=== PATIENT | male | born 1935 | race Caucasian/White ===

== ENCOUNTER 2017-06-24 09:25 | Day surgery (SDC) | payer MEDICARE, OTHER ==
[2017-06-20 14:40] VITALS: BMI 27.3
[~2017-06-24 09:25] MED LIST: LACTATED RINGERS 1,000 ML IV SCH
[2017-06-24 09:42] VITALS: TEMP 97.9
[2017-06-24] MEDS ORDERED: LIDOCAINE 1% 20 ML VIAL (10MG/ML) FOR IV START INTRADERMA ONE (10:00)
[2017-06-24] MEDS ORDERED: PROPOFOL 10 MG/ML 20 ML VIAL IV ONE (10:41)
--- NOTE | 2017-06-24 11:22 | P.PCN ---
Date of Procedure: 06/24/17 Preoperative Diagnosis: Postoperative Diagnosis: Procedure(s) Performed: Procedure: Colonoscopy through ostomy site with polypectomy. Preoperative diagnosis: History of rectal cancer status post anterior-posterior resection last year. Postoperative diagnosis: 1. Right colon polyp snared with no large polyps or cancer. 2. Diverticulosis with no evidence of acute diverticula source strictures. 3. S/P A/P resection. Preparation: HalfLytely prep. Sedation: Was provided by anesthesia. Brief clinical history: The patient is an 82-year-old male who was diagnosed with rectal cancer last year and underwent chemotherapy, radiation and A-P resection. This would be his first colonoscopy since. Procedure: With the patient in the supine position and after informed consent and adequate sedation, the ostomy site was inspected and it appeared healthy. The Olympus CFQ 160L video colonoscope was then inserted in the ostomy site and advanced without difficulty to the cecum. There were multiple diverticular orifices seen scattered on the right side and in the mid ascending colon there was a small polyp which I snared and retrieved by suction. The mucosa appeared healthy. No large polyps or cancer were seen. The patient tolerated the procedure well. Plan: The patient was reassured. Discussed dietary measures. I anticipate repeating this exam in 1-2 years. He will follow up with you as planned. Implants: Indications for Procedure: Operative Findings: Description of Procedure:
[2017-06-24 11:37] VITALS: BP 1254/65; PULSE 64; RESP 18
== END 2017-06-24 11:56 | disposition home or self-care (01) ==
LOC: ORWHC2ENDO 09:25
DX: D12.2 Benign neoplasm of ascending colon (principal); Z08 Encounter for follow-up examination after completed treatment for malignant neoplasm; K57.30 Diverticulosis of large intestine without perforation or abscess without bleeding; Z85.048 Personal history of other malignant neoplasm of rectum, rectosigmoid junction, and anus; F32.9 Major depressive disorder, single episode, unspecified; J44.9 Chronic obstructive pulmonary disease, unspecified; Z90.49 Acquired absence of other specified parts of digestive tract; Z92.3 Personal history of irradiation; Z92.21 Personal history of antineoplastic chemotherapy; Z86.711 Personal history of pulmonary embolism; Z86.718 Personal history of other venous thrombosis and embolism; Z79.01 Long term (current) use of anticoagulants; Z79.899 Other long term (current) drug therapy
CPT/HCPCS: 88305; 44394; J2704

== ENCOUNTER → 2018-05-25 | Outpatient (CLI) | payer MEDICARE, OTHER ==
--- NOTE | 2018-05-25 10:33 | CT ---
EXAMINATION TYPE: CT ChestAbdPelvis w con DATE OF EXAM: 05/25/2018 COMPARISON: Chest 12/22/2017 and chest abdomen and pelvis 01/02/2016 HISTORY: 83-year-old male Malignant neoplasm of rectum TECHNIQUE: Contiguous axial scanning of the chest, abdomen, and pelvis performed with IV Contrast, pa tient injected with 80 mL of Isovue 300. Delayed images through the kidneys were obtained. Coronal/sa gittal reconstructions performed. CT DLP: 1283.9 mGycm Automated exposure control for dose reduction was used. FINDINGS: Chest: Heart normal size without pericardial effusion. Mild coronary vessel calcifications are present. Aorta normal caliber with conventional arch vessel branching anatomy. Scattered small additional lymph nodes are unchanged. Large caliber to the main right and left pulmonary arteries at 2.9 cm each suggesting underlying pulm onary artery hypertension. 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 Stable focal irregular density peripheral right upper lobe suggest ing some scarring, axial image 15. Some additional patchy subpleural densities right lower lung and l inear densities peripheral left base suggesting additional areas of pleural parenchymal scarring. Pre viously described 2 mm right apical pulmonary nodule is less defined on the current exam. No new susp icious pulmonary nodules or masses. No consolidation or pleural effusion. ABDOMEN: Small hiatal hernia. Stable 2.4 cm cyst left hepatic dome and also probable 1.1 cm cyst central segment 6 right liver lobe , axial image 62. No biliary ductal dilatation. Portal venous system appears patent on the delayed se rachel. Gallbladder, right adrenal gland, spleen, and pancreas show no gross abnormality. A few subcentimeter hypodensities within both kidneys too small for accurate CT characterization and were present on 01/31/2016 suggesting cysts. Nonobstructive 6 mm right renal calculus and 5 mm nonobst ructive left renal calculus. Stable mild diffuse thickening of the left adrenal gland without discrete nodularity. No mesenteric or retroperitoneal lymphadenopathy. No dilated small bowel, free fluid, or free air. Oral contrast has progressed to the splenic flexure. There is normal appendix in mild diverticulosis at the level of the cecum. Left lower quadrant sigmoid colostomy with a small bowel containing parast omal hernia measuring 11.6 cm wide. Multiple small bowel loops are present in the hernia sac. No obst ructive changes. Mild atherosclerotic calcifications within the infrarenal abdominal aorta and iliac arteries without aneurysm. Pelvis: Bladder urine distended. Post surgical changes in the pelvis with distal colon and rectal resection w ith associated soft tissue and presacral thickening. No abnormal fluid collection in the pelvis or pe lvic lymphadenopathy. Partially visualized small to moderate-sized right-sided scrotal hydrocele. Bones: Left hip screw fixation noted. Degenerative changes of both hips and within the lower lumbar spine. N o osseous destructive process. IMPRESSION: 1. DISTAL COLONIC AND RECTAL RESECTION WITH LEFT LOWER QUADRANT SIGMOID COLOSTOMY. 2. PARASTOMAL HERNIA MEASURING 11.6 CM WIDE CONTAINING MULTIPLE SMALL BOWEL LOOPS. NO OBSTRUCTIVE OR INFLAMMATORY CHANGES. 2. PRESACRAL SOFT TISSUE THICKENING LIKELY CHRONIC POSTSURGICAL AND POSTTREATMENT CHANGE. NO EVIDENCE FOR METASTATIC DISEASE. 3. BULLOUS EMPHYSEMA WITH STABLE AREAS OF PLEURAL PARENCHYMAL SCARRING. 4. PULMONARY ARTERIAL HYPERTENSION, SMALL HIATAL HERNIA, NONOBSTRUCTIVE RENAL CALCULUS ON EACH SIDE M EASURING UP TO 6 MM, AND RIGHT-SIDED COLONIC DIVERTICULOSIS.
== END | disposition home or self-care (01) ==
LOC: RADCTMAIN 07:45
PROVIDERS: ATTEND Internal Medicine Hematology & Oncology
DX: C20 Malignant neoplasm of rectum (principal); J30.2 Other seasonal allergic rhinitis; J43.9 Emphysema, unspecified; I27.21 Secondary pulmonary arterial hypertension; N20.0 Calculus of kidney; K44.9 Diaphragmatic hernia without obstruction or gangrene; K57.30 Diverticulosis of large intestine without perforation or abscess without bleeding; Z98.890 Other specified postprocedural states
CPT/HCPCS: 82565; 84520; 71260; 74177; 36415; Q9967

== ENCOUNTER 2018-06-27 14:55 | Emergency (ER) | payer MEDICARE, OTHER ==
[2018-06-27] MEDS ORDERED: SODIUM CHLORIDE 0.9% 1,000 ML IV ONE (15:40)
--- NOTE | 2018-06-27 15:51 | ED ---
Abdominal Pain HPI - General Chief Complaint: Abdominal Pain Stated Complaint: Pain in stoma Time Seen by Provider: 06/27/18 15:22 Source: patient Mode of arrival: ambulatory Limitations: no limitations - History of Present Illness Initial Comments: Patient is an 83-year-old male with a history of colon cancer, status post colon resection and permanent colostomy presents with chief complaint of abdominal pain and left flank pain 10:00 this morning. Patient states that onset of pain was abrupt, it was sharp in nature and much worse earlier today. Patient states she has a history of kidney stones, passing his last one about 12 years ago. Patient also states that he has not had any output from his colostomy over the last few hours, but had diarrhea just prior. patient has a medical history PE, currently on xarelto. - Related Data Home Medications Medication Instructions Recorded Confirmed Citalopram Hydrobromide 20 mg PO QAM 05/23/16 12/22/17 [Citalopram HBr] Acetaminophen [Tylenol 8 Hour] 650 mg PO HS PRN 12/22/17 12/22/17 Montelukast [Singulair] 10 mg PO HS 12/22/17 12/22/17 Umeclidinium Brm/Vilanterol Tr 1 puff INHALATION RT-DAILY 12/22/17 12/22/17 [Anoro Ellipta 62.5-25 Mcg INH] Previous Rx's Medication Instructions Recorded Ipratropium-Albuterol Nebulize 3 ml INHALATION TID #90 ampul.neb 12/25/17 [Duoneb 0.5 mg-3 mg/3 ml Soln] Omeprazole [PriLOSEC] 20 mg PO AC-BRKFST #30 cap 12/25/17 Rivaroxaban [Xarelto] 15 mg PO BID-W/MEALS #42 tab 12/25/17 Acetaminophen [Tylenol Extra 500 mg PO Q8H #20 tablet 06/27/18 Strength] HYDROcodone/APAP 5-325MG [Mulberry 1 tab PO Q6HR PRN 3 Days #12 tab 06/27/18 5-325] Tamsulosin HCl [Flomax] 0.4 mg PO DAILY #2 capsule 06/27/18 Allergies Allergy/AdvReac Type Severity Reaction Status Date / Time No Known Allergies Allergy Verified 06/27/18 15:08 Review of Systems ROS Statement: Those systems with pertinent positive or pertinent negative responses have been documented in the HPI. ROS Other: All systems not noted in ROS Statement are negative. Gastrointestinal: Reports: abdominal pain, diarrhea Musculoskeletal: Reports: back pain Past Medical History Past Medical History: Cancer, COPD, GERD/Reflux, Pneumonia, Pulmonary Embolus ( PE) Additional Past Medical History / Comment(s): IBS, hx kidney stones, hx basal cell skin cancer,rectal cancer Dx January-last chemo/radiation 04-17-16, HAS OSTOMY History of Any Multi-Drug Resistant Organisms: None Reported Past Surgical History: Bowel Resection, Orthopedic Surgery Additional Past Surgical History / Comment(s): fx left tibia/fibula repair with 19 screws and 2 plates, fx lt femur repair with plate and 3 screws, removal of skin cancer, yusuf. cataract surgery. DEV. SEPTUM SX Past Anesthesia/Blood Transfusion Reactions: No Reported Reaction Past Psychological History: Anxiety, Depression Smoking Status: Former smoker Past Alcohol Use History: None Reported Past Drug Use History: None Reported - Past Family History Mother Family Medical History: No Reported History Additional Family Medical History / Comment(s): alcoholism, at age 54 Father History Unknown: Yes Brother(s) Additional Family Medical History / Comment(s): heart problems-5 stents General Exam Limitations: no limitations General appearance: alert, in no apparent distress Head exam: Present: atraumatic, normocephalic Eye exam: Present: normal appearance, PERRL ENT exam: Present: normal exam Neck exam: Present: normal inspection Respiratory exam: Present: normal lung sounds bilaterally. Absent: respiratory distress, wheezes Cardiovascular Exam: Present: regular rate, normal rhythm GI/Abdominal exam: Present: soft, tenderness (LLQ ). Absent: distended Rectal exam: Present: deferred Extremities exam: Present: normal inspection Back exam: Present: normal inspection. Absent: CVA tenderness (R), CVA tenderness (L) Neurological exam: Present: alert, oriented X3 Psychiatric exam: Present: normal affect, normal mood Skin exam: Present: warm, dry, intact Course Vital Signs 06/27/18 15:06 Temperature 97.8 F Pulse Rate 103 H Respiratory 18 Rate Blood Pressure 123/77 O2 Sat by Pulse 94 L Oximetry Medical Decision Making - Medical Decision Making Patient presents with a chief complaint of abdominal pain and flank pain, onset at 10 AM. On initial evaluation, vital signs are stable, patient is in no acute distress. Patient offered pain medications but declining at this time. Review of patient's recent imaging shows a computed tomography scan of the chest abdomen pelvis showed chronic thickening his sacrum, the hernia surrounding the colostomy, and a 6 mm and 5 mm nonobstructing renal stone in the right and left kidneys respectively. At this time considered etiologies such as kidney stone versus bowel obstruction. Patient will require repeat CT imaging of the abdomen and pelvis today however we'll wait for urinalysis to direct contrast versus noncontrast study. 6:14 PM Computed tomography scan of the abdomen and pelvis without contrast shows a 4 mm ureteral stone at the UVJ causing mild hydronephrosis and hydroureter. On reevaluation, patient states his pain is much improved. Currently pending urinalysis. Laboratory evaluation is unremarkable though there is a slight bump in patient's renal function. I discussed these findings with the patient. Pending urinalysis, patient will be discharged home with prescriptions for Mulberry, Tylenol, and Flomax. Patient will be given urology follow-up and instructed to follow up with primary care in 1-2 days, return to the emergency department if symptoms worsen or change. 7:20 PM Urinalysis does not show evidence of infection. At this time, patient stable for discharge. He was prescribed should drink Tylenol, Mulberry, and Flomax. Patient instructed not to take extra Tylenol if he is going to take the Mulberry. Patient instructed to throw Mulberry out if no pain in 3 days. I discussed the addictive nature of Mulberry with the patient, opiate start talking form discussed. Patient to follow up with primary care 1-2 days, return to the emergency department if symptoms worsen or change. Patient given follow-up for urology. - Lab Data Result diagrams: 06/27/18 15:58 06/27/18 15:58 Lab Results 06/27/18 06/27/18 06/27/18 Range/Units 15:58 15:58 15:58 WBC 10.3 (3.8-10.6) k/uL RBC 4.78 (4.30-5.90) m/uL Hgb 15.2 (13.0-17.5) gm/dL Hct 44.8 (39.0-53.0) % MCV 93.6 (80.0-100.0) fL MCH 31.8 (25.0-35.0) pg MCHC 34.0 (31.0-37.0) g/dL RDW 12.5 (11.5-15.5) % Plt Count 207 (150-450) k/uL Neutrophils % 86 % Lymphocytes % 5 % Monocytes % 6 % Eosinophils % 2 % Basophils % 1 % Neutrophils # 8.9 H (1.3-7.7) k/uL Lymphocytes # 0.5 L (1.0-4.8) k/uL Monocytes # 0.6 (0-1.0) k/uL Eosinophils # 0.2 (0-0.7) k/uL Basophils # 0.1 (0-0.2) k/uL Sodium 135 L (137-145) mmol/L Potassium 4.2 (3.5-5.1) mmol/L Chloride 105 (98-107) mmol/L Carbon Dioxide 20 L (22-30) mmol/L Anion Gap 10 mmol/L BUN 16 (9-20) mg/dL Creatinine 1.58 H (0.66-1.25) mg/dL Est GFR (CKD-EPI)AfAm 46 (>60 ml/min/1.73 sqM) Est GFR (CKD-EPI)NonAf 40 (>60 ml/min/1.73 sqM) Glucose 127 H (74-99) mg/dL Plasma Lactic Acid Adrian 1.5 (0.7-2.0) mmol/L Calcium 9.1 (8.4-10.2) mg/dL Total Bilirubin 0.6 (0.2-1.3) mg/dL AST 16 L (17-59) U/L ALT 24 (21-72) U/L Alkaline Phosphatase 53 (38-126) U/L Total Protein 5.7 L (6.3-8.2) g/dL Albumin 3.5 (3.5-5.0) g/dL Lipase 119 (23-300) U/L Urine Color Urine Appearance (Clear) Urine pH (5.0-8.0) Ur Specific [place] (1.001-1.035) Urine Protein (Negative) Urine Glucose (UA) (Negative) Urine Ketones (Negative) Urine Blood (Negative) Urine Nitrite (Negative) Urine Bilirubin (Negative) Urine Urobilinogen (<2.0) mg/dL Ur Leukocyte Esterase (Negative) Urine RBC (0-5) /hpf Urine WBC (0-5) /hpf Urine Mucus (None) /hpf 06/27/18 Range/Units 18:35 WBC (3.8-10.6) k/uL RBC (4.30-5.90) m/uL Hgb (13.0-17.5) gm/dL Hct (39.0-53.0) % MCV (80.0-100.0) fL MCH (25.0-35.0) pg MCHC (31.0-37.0) g/dL RDW (11.5-15.5) % Plt Count (150-450) k/uL Neutrophils % % Lymphocytes % % Monocytes % % Eosinophils % % Basophils % % Neutrophils # (1.3-7.7) k/uL Lymphocytes # (1.0-4.8) k/uL Monocytes # (0-1.0) k/uL Eosinophils # (0-0.7) k/uL Basophils # (0-0.2) k/uL Sodium (137-145) mmol/L Potassium (3.5-5.1) mmol/L Chloride (98-107) mmol/L Carbon Dioxide (22-30) mmol/L Anion Gap mmol/L BUN (9-20) mg/dL Creatinine (0.66-1.25) mg/dL Est GFR (CKD-EPI)AfAm (>60 ml/min/1.73 sqM) Est GFR (CKD-EPI)NonAf (>60 ml/min/1.73 sqM) Glucose (74-99) mg/dL Plasma Lactic Acid Adrian (0.7-2.0) mmol/L Calcium (8.4-10.2) mg/dL Total Bilirubin (0.2-1.3) mg/dL AST (17-59) U/L ALT (21-72) U/L Alkaline Phosphatase (38-126) U/L Total Protein (6.3-8.2) g/dL Albumin (3.5-5.0) g/dL Lipase (23-300) U/L Urine Color Yellow Urine Appearance Clear (Clear) Urine pH 6.0 (5.0-8.0) Ur Specific [place] 1.010 (1.001-1.035) Urine Protein Trace H (Negative) Urine Glucose (UA) Negative (Negative) Urine Ketones Negative (Negative) Urine Blood Large H (Negative) Urine Nitrite Negative (Negative) Urine Bilirubin Negative (Negative) Urine Urobilinogen <2.0 (<2.0) mg/dL Ur Leukocyte Esterase Small H (Negative) Urine RBC >182 H (0-5) /hpf Urine WBC 7 H (0-5) /hpf Urine Mucus Rare H (None) /hpf Disposition Clinical Impression: Ureterolithiasis Disposition: HOME SELF-CARE Condition: Good Instructions: Kidney Stones (ED) Prescriptions: Acetaminophen [Tylenol Extra Strength] 500 mg PO Q8H #20 tablet HYDROcodone/APAP 5-325MG [Mulberry 5-325] 1 tab PO Q6HR PRN 3 Days #12 tab PRN Reason: Pain Tamsulosin HCl [Flomax] 0.4 mg PO DAILY #2 capsule Is patient prescribed a controlled substance at d/c from ED?: Yes If prescribed controlled substance>3 days was MAPS reviewed?: Prescribed <3 Days Referrals: Solomon Schmid DO [Primary Care Provider] - 1-2 days Nima Mckeon MD [STAFF PHYSICIAN] - 1-2 days
[2018-06-27 16:15] LABS: Basophils # (A) 0.1 k/uL (0-0.2); Basophils % (A) 1 %; Eosinophils # (A) 0.2 k/uL (0-0.7); Eosinophils % (A) 2 %; HCT 44.8 % (39.0-53.0); HGB 15.2 gm/dL (13.0-17.5); Lymphocytes # (A) 0.5 k/uL (1.0-4.8); Lymphocytes % (A) 5 %; MCH 31.8 pg (25.0-35.0); MCV 93.6 fL (80.0-100.0); Mean Platelet Volume 8.1; Monocytes # (A) 0.6 k/uL (0-1.0); Monocytes % (A) 6 %; Neutrophils # (A) 8.9 k/uL (1.3-7.7); Neutrophils % (A) 86 %; Platelet Count 207 k/uL (150-450); RBC 4.78 m/uL (4.30-5.90); RDW 12.5 % (11.5-15.5); WBC 10.3 k/uL (3.8-10.6)
[2018-06-27 16:26] LABS: Albumin 3.5 g/dL (3.5-5.0); Calcium 9.1 mg/dL (8.4-10.2); Potassium 4.2 mmol/L (3.5-5.1); Total Bilirubin 0.6 mg/dL (0.2-1.3); Total Protein 5.7 g/dL (6.3-8.2)
--- NOTE | 2018-06-27 17:55 | CT ---
EXAMINATION TYPE: CT renal stones wo con DATE OF EXAM: 06/27/2018 COMPARISON: INDICATION: left sided abdominal pain DLP: 634.7 mGycm, Automated exposure control for dose reduction was used. CONTRAST: 0 mL of Isovue 300. Study performed without Oral Contrast TECHNIQUE: Axial images were obtained from above the diaphragm to the pubic rami in the axial plane a t 5 mm thick sections. Reconstructed images are reviewed on the computer in the coronal plane. FINDINGS: Limited CT sections are obtained the lung bases. Compressive atelectasis at the dependent portions o f the lung bases and the periphery of the right lung. Some streak atelectasis may be at the right thony g base.. CT ABDOMEN: Liver: There is a 2.7 cm cyst at the superior right lobe liver measuring 0 Hounsfield units compatibl e wrist. Small hypodensity may be in the medial right lobe liver measuring 1.4 cm. Series 3 image 34. Spleen: Normal Pancreas: Normal Adrenal glands: The adrenal glands are normal. Gallbladder: Normal Kidneys: No masses are evident. No cysts are present. There is a 0.4 cm calcification on the posteri or mid right kidney without evidence of obstruction. There is a 0.4 cm calcification on the posterior lateral left kidney without evidence of obstruction. Minimal left hydronephrosis may be present. The re is some mild left hydroureter. Perinephric stranding some periureteral stranding is present on the left. Hydroureter becomes more prominent within the pelvis. At the left ureterovesical junction ther e is an obstructing calcification measuring 0.4 cm. Aorta: Vascular calcification is within the aorta. Inferior vena cava: Normal. CT PELVIS: There is an anterior lateral left pelvic hernia containing multiple loops of bowel. No obs truction is evident. Skin is out of the [id number]. An ostomy at this site cannot be excluded. Dis luther colon appears to be surgically absent suggesting this is the ostomy site. The opening is 3.7 cm. Appendix: Normal as visualized. Urinary bladder: Normal. Genitourinary structures: Prostate appears unremarkable. Osseous structures: No suspicious lytic or sclerotic lesions. Left hip repair with a pain screw is pr esent. There are degenerative disc changes within the lower lumbar spine. IMPRESSIONS: 1. 0.4 cm obstructing distal left ureteral stone with mild left hydroureter and minimal left hydrone phrosis. 2. Bilateral nonobstructing renal stones. 3. Left anterior abdominal wall hernia containing nonobstructed loops of bowel. This is an ostomy sit e. Distal colon is not identified.
[2018-06-27 18:59] LABS: Appearance,Urine Clear (Clear); Bilirubin,Urine Negative (Negative); Blood,Urine Large (Negative); Color,Urine Yellow; Glucose,Urine (UA) Negative (Negative); Ketones,Urine Negative (Negative); Leukocyte Esterase,Urine Small (Negative); Mucus,Urine Rare /hpf; Nitrite,Urine Negative (Negative); Protein,Urine Trace (Negative); RBC,Urine >182 /hpf (0-5); Urobilinogen,Urine <2.0 mg/dL (<2.0); WBC,Urine 7 /hpf (0-5)
[2018-06-27 19:27] VITALS: BP 116/80; PULSE 55; RESP 17; TEMP 98.2
== END 2018-06-27 19:50 | disposition home or self-care (01) ==
LOC: EC 14:55
DX: N13.2 Hydronephrosis with renal and ureteral calculous obstruction (principal); R19.7 Diarrhea, unspecified; J44.9 Chronic obstructive pulmonary disease, unspecified; F32.9 Major depressive disorder, single episode, unspecified; F41.9 Anxiety disorder, unspecified; Z87.442 Personal history of urinary calculi; Z86.711 Personal history of pulmonary embolism; Z85.828 Personal history of other malignant neoplasm of skin; Z85.048 Personal history of other malignant neoplasm of rectum, rectosigmoid junction, and anus; Z85.038 Personal history of other malignant neoplasm of large intestine; Z87.891 Personal history of nicotine dependence; Z79.899 Other long term (current) drug therapy; Z90.49 Acquired absence of other specified parts of digestive tract
CPT/HCPCS: 36415; 74150; 80053; 81001; 83605; 83690; 85025; 96360; 99284

== ENCOUNTER 2019-04-15 08:31 | Inpatient (IN) | payer MEDICARE, OTHER ==
[2019-04-15] MEDS ORDERED: MORPHINE SULFATE 4 MG/ML SYRINGE IV STA (09:37)
[2019-04-15] MEDS ORDERED: KETOROLAC 30 MG/ML 1 ML VIAL IVP STA (09:37)
[2019-04-15] MEDS ORDERED: SODIUM CHLORIDE 0.9% 1,000 ML IV STA ×2 (09:37)
[2019-04-15 10:11] LABS: Basophils # (A) 0.1 k/uL (0-0.2); Basophils % (A) 1 %; Eosinophils # (A) 0.2 k/uL (0-0.7); Eosinophils % (A) 3 %; HCT 46.8 % (39.0-53.0); HGB 15.3 gm/dL (13.0-17.5); Lymphocytes # (A) 0.6 k/uL (1.0-4.8); Lymphocytes % (A) 7 %; MCH 30.7 pg (25.0-35.0); MCHC 32.7 g/dL (31.0-37.0); MCV 94.1 fL (80.0-100.0); Mean Platelet Volume 7.9; Monocytes # (A) 0.5 k/uL (0-1.0); Monocytes % (A) 5 %; Neutrophils # (A) 7.3 k/uL (1.3-7.7); Neutrophils % (A) 84 %; Platelet Count 268 k/uL (150-450); RBC 4.98 m/uL (4.30-5.90); RDW 13.1 % (11.5-15.5); WBC 8.7 k/uL (3.8-10.6)
[2019-04-15 10:21] LABS: Albumin 4.1 g/dL (3.5-5.0); Calcium 9.6 mg/dL (8.4-10.2); Potassium 4.4 mmol/L (3.5-5.1); Total Protein 6.4 g/dL (6.3-8.2)
--- NOTE | 2019-04-15 10:21 | ED ---
Lower Extremity Injury HPI - General Source: patient, RN notes reviewed, old records reviewed Mode of arrival: wheelchair Limitations: no limitations <Juanita Garcia - Last Filed: 04/15/19 12:26> <Virgilio Sweeney - Last Filed: 04/15/19 12:42> - General Chief Complaint: Extremity Injury, Lower Stated Complaint: Hip Pain Time Seen by Provider: 04/15/19 09:00 - History of Present Illness Initial Comments: Patient is a pleasant 83-year-old male presents emergency department today for evaluation with complaints of right hip pain. Patient reports he's been having worsening chronic right hip pain for the past few weeks. Unable to bear weight. Patient denies any recent fall or trauma. Does have history of colon cancer. He states he followed up outpatient only and had outpatient x-ray. There was a evidence of a lesion over the hip. He scheduled to have an outpatient CT completed. Patient states that his pain was getting more severe so he felt that he needed to come in for this acute right hip pain. 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 He does have a colostomy. Patient states he is on several toe for history of PE use. He denies any current PE, chest pain or shortness of breath. (Juanita Garcia) - Related Data Home Medications Medication Instructions Recorded Confirmed Citalopram Hydrobromide 20 mg PO QAM 05/23/16 04/15/19 [Citalopram HBr] Acetaminophen [Tylenol 8 Hour] 1,300 mg PO Q8H PRN 12/22/17 04/15/19 Montelukast [Singulair] 10 mg PO HS 12/22/17 04/15/19 Umeclidinium Brm/Vilanterol Tr 1 puff INHALATION RT-DAILY 12/22/17 04/15/19 [Anoro Ellipta 62.5-25 Mcg INH] Albuterol Inhaler [Ventolin Hfa 1 - 2 puff INHALATION RT-Q6H PRN 04/15/19 04/15/19 Inhaler] Levocetirizine Dihydrochloride 5 mg PO DAILY 04/15/19 04/15/19 [Xyzal] Rivaroxaban [Xarelto] 20 mg PO DAILY 04/15/19 04/15/19 Allergies Allergy/AdvReac Type Severity Reaction Status Date / Time No Known Allergies Allergy Verified 04/15/19 08:43 Review of Systems ROS Other: All systems not noted in ROS Statement are negative. <Juanita Garcia - Last Filed: 04/15/19 12:26> ROS Other: All systems not noted in ROS Statement are negative. <Virgilio Sweeney - Last Filed: 04/15/19 12:42> ROS Statement: Those systems with pertinent positive or pertinent negative responses have been documented in the HPI. Past Medical History Past Medical History: Cancer, COPD, GERD/Reflux, Pneumonia, Pulmonary Embolus (PE) Additional Past Medical History / Comment(s): IBS, hx kidney stones, hx basal cell skin cancer,rectal cancer Dx January-last chemo/radiation 04-17-16, HAS OSTOMY History of Any Multi-Drug Resistant Organisms: None Reported Past Surgical History: Bowel Resection, Orthopedic Surgery Additional Past Surgical History / Comment(s): fx left tibia/fibula repair with 19 screws and 2 plates, fx lt femur repair with plate and 3 screws, removal of skin cancer, yusuf. cataract surgery. DEV. SEPTUM SX Past Anesthesia/Blood Transfusion Reactions: No Reported Reaction Past Psychological History: Anxiety, Depression Smoking Status: Former smoker Past Alcohol Use History: None Reported Past Drug Use History: None Reported - Past Family History Mother Family Medical History: No Reported History Additional Family Medical History / Comment(s): alcoholism, at age 54 Father History Unknown: Yes Brother(s) Additional Family Medical History / Comment(s): heart problems-5 stents <Juanita Garcia - Last Filed: 04/15/19 12:26> General Exam Limitations: no limitations General appearance: alert, in no apparent distress Head exam: Present: atraumatic, normocephalic, normal inspection Eye exam: Present: normal appearance, PERRL, EOMI. Absent: scleral icterus, conjunctival injection, periorbital swelling ENT exam: Present: normal exam, mucous membranes moist Neck exam: Present: normal inspection. Absent: tenderness, meningismus, lymphadenopathy Respiratory exam: Present: normal lung sounds bilaterally. Absent: respiratory distress, wheezes, rales, rhonchi, stridor Cardiovascular Exam: Present: regular rate, normal rhythm, normal heart sounds. Absent: systolic murmur, diastolic murmur, rubs, gallop, clicks GI/Abdominal exam: Present: soft, normal bowel sounds. Absent: distended, tenderness, guarding, rebound, rigid Extremities exam: Present: normal inspection, full ROM, normal capillary refill, other (Patient is sinus outpatient over the right hip. Full range of motion was completed Patient and pain with external and internal rotation. Herself pedis pulses palpable 2+. No lower extremity edema.). Absent: tenderness, pedal edema, joint swelling, calf tenderness Back exam: Present: normal inspection Neurological exam: Present: alert, oriented X3, CN II-XII intact Psychiatric exam: Present: normal affect, normal mood <Juanita Garcia - Last Filed: 04/15/19 12:26> - General Exam Comments Initial Comments: Is an 83-year-old male presents emergency department. Patient appears in no significant distress. He reports his daughter. (Juanita Garcia) Course Vital Signs 04/15/19 04/15/19 08:32 10:14 Temperature 97 F L Pulse Rate 80 67 Respiratory 18 18 Rate Blood Pressure 127/96 141/82 O2 Sat by Pulse 97 93 L Oximetry Medical Decision Making - Lab Data Result diagrams: 04/15/19 10:00 04/15/19 10:00 - Radiology Data Radiology results: report reviewed <Juanita Garcia - Last Filed: 04/15/19 12:26> - Lab Data Result diagrams: 04/15/19 10:00 04/15/19 10:00 <Virgilio Sweeney - Last Filed: 04/15/19 12:42> - Medical Decision Making Patient is an 83-year-old male presents emergency Department today with complaints of right hip pain. Worse over the past 24-48 hours. He denies any falls or trauma. Patient reports a history of sclerotic lesion that was noted. Slow given outpatient CT. He states the pain was more severe and unable to ambulate so came in for evaluation. Scheduled to have an outpatient CT of his abdomen and pelvis for follow-up for his cancer. He states is currently in remission. Patient does have an acute right femoral neck fracture. He denies any fall or trauma related to this. Discussed could be related to pathologic fracture. Patient was given morphine. Patient's labwork was reviewed. He does have some evidence of white blood cells and blood in his urine. We will culture this. He denies any complaining of dysuria. Patient case discussed with Dr. Sweeney whom discussed case with Dr. Lima. He is previously seen Dr. Duvall for his lip left hip fracture. Patient will be admitted at this time, to medical doctor with consult to orthosis as a nontraumatic hip fracture. He is on Xarelto, will we will holds her also for this time. (Juanita Garcia) Patient reexamined and reevaluated by myself, Dr. Sweeney. Patient is resting comfortably in bed. I do agree with PA findings. This includes diagnostic interpretation and plan. Patient does have discomfort with active range of mo tion. Limited discomfort with passive range of motion. Patient states no specific trauma. Onset of symptoms was close to one month ago. Patient did have previous x-rays with questionable sclerotic area. Computed tomography scan report shows femoral neck fracture. Case was discussed in detail with Dr. Nguyen. Dr. Sullivan has low suspicion for metastatic disease off of patient's previous diagnosis. He states he does not feel he needs to be consulted until orthopedics see his patient. He states if they do have strong suspicion they can consult him if needed. Case was also discussed with Dr. gupta, who will consult covering for Dr. Schmid. (Virgilio Sweeney) - Lab Data Lab Results 04/15/19 04/15/19 04/15/19 Range/Units 10:00 10:00 10:00 WBC 8.7 (3.8-10.6) k/uL RBC 4.98 (4.30-5.90) m/uL Hgb 15.3 (13.0-17.5) gm/dL Hct 46.8 (39.0-53.0) % MCV 94.1 (80.0-100.0) fL MCH 30.7 (25.0-35.0) pg MCHC 32.7 (31.0-37.0) g/dL RDW 13.1 (11.5-15.5) % Plt Count 268 (150-450) k/uL Neutrophils % 84 % Lymphocytes % 7 % Monocytes % 5 % Eosinophils % 3 % Basophils % 1 % Neutrophils # 7.3 (1.3-7.7) k/uL Lymphocytes # 0.6 L (1.0-4.8) k/uL Monocytes # 0.5 (0-1.0) k/uL Eosinophils # 0.2 (0-0.7) k/uL Basophils # 0.1 (0-0.2) k/uL PT 13.4 H (9.0-12.0) sec INR 1.3 H (<1.2) APTT 34.4 H (22.0-30.0) sec Sodium 139 (137-145) mmol/L Potassium 4.4 (3.5-5.1) mmol/L Chloride 107 (98-107) mmol/L Carbon Dioxide 26 (22-30) mmol/L Anion Gap 6 mmol/L BUN 19 (9-20) mg/dL Creatinine 1.21 (0.66-1.25) mg/dL Est GFR (CKD-EPI)AfAm 64 (>60 ml/min/1.73 sqM) Est GFR (CKD-EPI)NonAf 55 (>60 ml/min/1.73 sqM) Glucose 88 (74-99) mg/dL Calcium 9.6 (8.4-10.2) mg/dL Total Bilirubin 1.0 (0.2-1.3) mg/dL AST 15 L (17-59) U/L ALT 31 (21-72) U/L Alkaline Phosphatase 58 (38-126) U/L Total Protein 6.4 (6.3-8.2) g/dL Albumin 4.1 (3.5-5.0) g/dL Amylase 83 (30-110) U/L Lipase 139 (23-300) U/L Urine Color Urine Appearance (Clear) Urine pH (5.0-8.0) Ur Specific [place] (1.001-1.035) Urine Protein (Negative) Urine Glucose (UA) (Negative) Urine Ketones (Negative) Urine Blood (Negative) Urine Nitrite (Negative) Urine Bilirubin (Negative) Urine Urobilinogen (<2.0) mg/dL Ur Leukocyte Esterase (Negative) Urine RBC (0-5) /hpf Urine WBC (0-5) /hpf Urine Mucus (None) /hpf 04/15/19 Range/Units 10:05 WBC (3.8-10.6) k/uL RBC (4.30-5.90) m/uL Hgb (13.0-17.5) gm/dL Hct (39.0-53.0) % MCV (80.0-100.0) fL MCH (25.0-35.0) pg MCHC (31.0-37.0) g/dL RDW (11.5-15.5) % Plt Count (150-450) k/uL Neutrophils % % Lymphocytes % % Monocytes % % Eosinophils % % Basophils % % Neutrophils # (1.3-7.7) k/uL Lymphocytes # (1.0-4.8) k/uL Monocytes # (0-1.0) k/uL Eosinophils # (0-0.7) k/uL Basophils # (0-0.2) k/uL PT (9.0-12.0) sec INR (<1.2) APTT (22.0-30.0) sec Sodium (137-145) mmol/L Potassium (3.5-5.1) mmol/L Chloride (98-107) mmol/L Carbon Dioxide (22-30) mmol/L Anion Gap mmol/L BUN (9-20) mg/dL Creatinine (0.66-1.25) mg/dL Est GFR (CKD-EPI)AfAm (>60 ml/min/1.73 sqM) Est GFR (CKD-EPI)NonAf (>60 ml/min/1.73 sqM) Glucose (74-99) mg/dL Calcium (8.4-10.2) mg/dL Total Bilirubin (0.2-1.3) mg/dL AST (17-59) U/L ALT (21-72) U/L Alkaline Phosphatase (38-126) U/L Total Protein (6.3-8.2) g/dL Albumin (3.5-5.0) g/dL Amylase (30-110) U/L Lipase (23-300) U/L Urine Color Yellow Urine Appearance Clear (Clear) Urine pH 5.5 (5.0-8.0) Ur Specific [place] 1.025 (1.001-1.035) Urine Protein Trace H (Negative) Urine Glucose (UA) Negative (Negative) Urine Ketones 1+ H (Negative) Urine Blood Moderate H (Negative) Urine Nitrite Negative (Negative) Urine Bilirubin Negative (Negative) Urine Urobilinogen <2.0 (<2.0) mg/dL Ur Leukocyte Esterase Trace H (Negative) Urine RBC 180 H (0-5) /hpf Urine WBC 6 H (0-5) /hpf Urine Mucus Rare H (None) /hpf 04/15/19 10:45 EKG performed at 1011 shows sinus bradycardia, right bundle branch block noted. Ventricular rate of 59 bpm period. Was 178 ms. Chest ration 132 ms. QT QTC 01/19/1984/479 ms. (Juanita Garcia) - Radiology Data CT abdomen and pelvis with contrast shows acute transcervical right femoral neck impaction fracture without comminution. Minimal for shattering impaction of the medial formal neck and 1 minute. Diastases of the lateral femoral neck. Urinary bladder wall thickening could be acute or chronic was no inflammatory change seen. Correlate with urinalysis. Is a large mobile containing left mid abdomen. Stomal hernia. Hepatic cysts, and mild hepatic steatosis. (Juanita Garcia) Disposition Is patient prescribed a controlled substance at d/c from ED?: No Time of Disposition: 12:32 <Juanita Garcia - Last Filed: 04/15/19 12:26> <Virgilio Sweeney - Last Filed: 04/15/19 12:42> Clinical Impression: Hip fracture, History of rectal cancer, Hematuria Disposition: ADMITTED IP TO THIS HOSP Condition: Stable Referrals: Solomon Schmid DO [Primary Care Provider] - 1-2 days
[2019-04-15 10:24] LABS: INR 1.3 (<1.2); Partial Thromboplastin Time 34.4 sec (22.0-30.0); Prothrombin Time 13.4 sec (9.0-12.0)
[2019-04-15 10:29] LABS: Appearance,Urine Clear (Clear); Bilirubin,Urine Negative (Negative); Blood,Urine Moderate (Negative); Color,Urine Yellow; Glucose,Urine (UA) Negative (Negative); Ketones,Urine 1+ (Negative); Leukocyte Esterase,Urine Trace (Negative); Mucus,Urine Rare /hpf; Nitrite,Urine Negative (Negative); PH, Urine 5.5 (5.0-8.0); Protein,Urine Trace (Negative); RBC,Urine 180 /hpf (0-5); Specific Gravity,Urine 1.025 (1.001-1.035); Urobilinogen,Urine <2.0 mg/dL (<2.0); WBC,Urine 6 /hpf (0-5)
--- NOTE | 2019-04-15 11:37 | CT ---
EXAMINATION TYPE: CT abdomen pelvis w con, CT hip RT w con DATE OF EXAM: 04/15/2019 COMPARISON: 06/27/2018 CT HISTORY: Hip pain (accession [id number]), Abdominal pain and hip pain (accession [id number]) CT DLP: 1342 mGycm Automated exposure control for dose reduction was used. TECHNIQUE: Helical acquisition of images was performed from the lung bases through the pelvis. Randy guous axial CT slices were also obtained of the right hip. CONTRAST: Performed without Oral Contrast and with IV Contrast, patient injected with 80 ml (accession [id number] ), 100 ml (accession [id number]) mL of Isovue 300. FINDINGS: LUNG BASES: Peripheral reticular predominant opacities favor mild fibrosis with bandlike pleural pare nchymal scarring at the left lung base and multifocal subsegmental atelectasis. LIVER/GB: There is a cyst within the hepatic dome measuring 2.7 cm. There is additional cyst medially within the right hepatic lobe on image 24 measuring 1 cm. There is diffuse hypoattenuation of the he patic parenchyma compatible with hepatic steatosis. There is slight atrophy of the left hepatic lobe. No radiopaque calculi are seen within the gallbladder. PANCREAS: Slight pancreatic ductal prominence without dilatation is seen. Pancreatic parenchyma enhan devante homogeneously. SPLEEN: No significant abnormality is seen. ADRENALS: No significant abnormality is seen. KIDNEYS: There are bilateral nonobstructing renal calculi measuring 5 mm in the left mid pole and 4 m m in the right upper pole. There are 2 small to accurately characterize bilateral renal lesions. No h ydronephrosis. FREE AIR: No free air is visualized. ADENOPATHY: No greater than 1 cm short axis lymph node is seen in the abdomen or pelvis. REPRODUCTIVE ORGANS: No significant abnormality is seen URINARY BLADDER: Elongated with slight anterior urinary bladder wall thickening and urachal remnant noted. OSSEOUS STRUCTURES: There is a right femoral neck fracture that is an impacted fracture that appears transcervical within fraction approximately 7 mm medially and 1 mm diastases laterally. This is not comminuted. The acetabulum displays multiple osteophytes and well-corticated adjacent fragments altho ugh no acute fracture of the acetabulum is seen. Pelvis appears intact and no sacroiliac joint space widening is seen. There is generalized osseous demineralization and slight heterogeneity of the bone marrow diffusely. Left femoral arthroplasty is noted. Moderate degenerative changes of the lumbosacra l spine are seen. BOWEL: Small hiatal hernia is present. Left parastomal hernia is seen within neck measuring 3 cm. Th e hernia sac measures up to 1.4 cm and stoma is present. Distal rectosigmoid colon resection is prese nt. IMPRESSION: 1. Acute transcervical right femoral neck impaction fracture without comminution. Minimal foreshorten ing/impaction of the medial femoral neck and 1 mm diastases of the lateral femoral neck. 2. Urinary bladder wall thickening could be acute or chronic with no inflammatory change seen. Correl ate with urinalysis. 3. Large small bowel containing left mid abdomen parastomal hernia. 4. Hepatic cysts and mild hepatic steatosis.
[2019-04-15] MEDS ORDERED: HYDROmorphone 0.5 MG/0.5 ML SYRINGE IVP PRN (12:36)
[2019-04-15] MEDS ORDERED: NALOXONE 0.4 MG/ML 1 ML VIAL IV PRN (12:36)
[2019-04-15] MEDS ORDERED: MORPHINE SULFATE 4 MG/ML SYRINGE IV PRN (12:36)
[2019-04-15] MEDS ORDERED: ACETAMINOPHEN TAB 500 MG TAB PO PRN (12:39)
--- NOTE | 2019-04-15 13:28 | XR ---
Right femur, right hip, AP pelvis HISTORY: Pain 2 views of the right hip, 2 views of the right femur on 4 images, frontal view of the pelvis. Bone mineralization is reduced. There is a subcapital fracture with impaction of the proximal right f emur. No dislocation. Contrast material present within the bladder. Degenerative disc changes visuali zed spine. The left lower quadrant. Postop changes are noted. IMPRESSION: Proximal right femoral fracture.
--- NOTE | 2019-04-15 13:31 | XR ---
EXAMINATION TYPE: XR chest 1V DATE OF EXAM: 04/15/2019 COMPARISON: Prior chest x-ray 05/28/2016 HISTORY: Right hip pain, colon cancer TECHNIQUE: Single frontal view of the chest is obtained. FINDINGS: Patient is rotated There is no focal air space opacity, pleural effusion, or pneumothorax s een. The cardiac silhouette size is stable. The osseous structures are intact. Pneumoperitoneum se en on prior chest x-ray has resolved. IMPRESSION: No acute process.
[2019-04-15] MEDS: IPRATROPIUM 0.5 MG/2.5 ML NEBU INHALATION SCH ×2 (16:05→20:33)
[2019-04-15] MEDS: SODIUM CHLORIDE 0.9% 1,000 ML IV SCH (17:27)
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
[2019-04-15] MEDS: ONDANSETRON 4 MG/2 ML VIAL IVP PRN (20:09)
[2019-04-15] MEDS: MONTELUKAST 10 MG TAB PO SCH (20:09)
[2019-04-15] MEDS: FORMOTEROL FUMARATE 20 MCG/2 ML NEBU INHALATION SCH (20:33)
[2019-04-16 02:19] VITALS: BMI 29.7
[2019-04-16] MEDS: SODIUM CHLORIDE 0.9% 1,000 ML IV SCH (02:54)
--- NOTE | 2019-04-16 07:10 | P.CNOR ---
History of Present Illness - [facility] Consult date: 04/15/19 Consult reason: other (right femoral neck fracture) History of present illness: Mr. Blanchard is a pleasant, 83-year-old gentleman who presents with a one-month history of increasing right hip pain. He first noticed the symptoms on 03/18/2019 when stretching to get into a vehicle with a high seat. The sharp pain resolved quickly and he was able to resume normal activity. He noticed increasing difficulty with ambulation. This became substantially more painful a few days ago. Past medical history is significant for colon/rectal cancer (stage 2 at time of diagnosis) treated with surgical resection in 2016 followed by chemo and radiation. He has a permanent colostomy. Prior to admission, he went for an abdominal CT performed for normal follow-up for his cancer and a femoral neck fracture was identified and he was sent to the emergency department. He denies any fall or recent trauma. He normally ambulates without the use of any assist devices. The last several days, he's been able to get around (with difficulty) by using 2 canes. He did have to PE's near the end of his chemo treatment and has been on Xarelto ever since. His last dose was this morning (04/15). He lives alone and is independent with all activities of daily living. Past Medical History Past Medical History: Cancer, COPD, GERD/Reflux, Pneumonia, Pulmonary Embolus (PE) Additional Past Medical History / Comment(s): IBS, hx kidney stones, hx basal cell skin cancer,rectal cancer Dx January-last chemo/radiation 04-17-16, HAS OSTOMY History of Any Multi-Drug Resistant Organisms: None Reported Past Surgical History: Bowel Resection, Orthopedic Surgery Additional Past Surgical History / Comment(s): fx left tibia/fibula repair with 19 screws and 2 plates, fx lt femur repair with plate and 3 screws, removal of skin cancer, yusuf. cataract surgery. DEV. SEPTUM SX Past Anesthesia/Blood Transfusion Reactions: No Reported Reaction Past Psychological History: Anxiety, Depression Smoking Status: Former smoker Past Alcohol Use History: None Reported Additional Past Alcohol Use History / Comment(s): quit 1984 Past Drug Use History: None Reported - Past Family History Mother Family Medical History: No Reported History Additional Family Medical History / Comment(s): alcoholism, at age 54 Father History Unknown: Yes Brother(s) Additional Family Medical History / Comment(s): heart problems-5 stents Medications and Allergies Home Medications Medication Instructions Recorded Confirmed Type Citalopram Hydrobromide 20 mg PO QAM 05/23/16 04/15/19 History [Citalopram HBr] Acetaminophen [Tylenol 8 Hour] 1,300 mg PO Q8H PRN 12/22/17 04/15/19 History Montelukast [Singulair] 10 mg PO HS 12/22/17 04/15/19 History Umeclidinium Brm/Vilanterol Tr 1 puff INHALATION RT-DAILY 12/22/17 04/15/19 History [Anoro Ellipta 62.5-25 Mcg INH] Albuterol Inhaler [Ventolin Hfa 1 - 2 puff INHALATION RT-Q6H PRN 04/15/19 04/15/19 History Inhaler] Levocetirizine Dihydrochloride 5 mg PO DAILY 04/15/19 04/15/19 History [Xyzal] Rivaroxaban [Xarelto] 20 mg PO DAILY 04/15/19 04/15/19 History Allergies Allergy/AdvReac Type Severity Reaction Status Date / Time No Known Allergies Allergy Verified 04/15/19 08:43 Physical Examination Musculoskeletal: Mild tenderness to palpation on the lateral aspect of the right hip over the greater trochanter. There is no erythema, ecchymosis or abrasions. There is no gross shortening or malrotation. He demonstrates mild pain with logroll but more discomfort with internal rotation. He can actively flex the hip beyond 60 with minimal discomfort. Gentle passive range of motion and circumduction in the midrange reveals a smooth articulation. He is able to transiently straight leg raise but is unable to hold this against resistance due to pain. Light touch sensation is subjectively intact throughout the right leg. Intact gross motor function to the tibialis anterior, EHL and gastroc- soleus complex. Palpable dorsalis pedis and tibialis posterior pulses. The foot is warm, dry and well perfused. Results X-rays of the pelvis and right hip were reviewed and interpreted from an or thopedic standpoint. These demonstrates an impacted subcapital femoral neck fracture with displacement between the medial head-neck junction. There is a large, lytic-appearing lucency in the superolateral aspect of the head. CT reveals an incomplete, impacted femoral neck fracture. Note is made of mixed lytic and sclerotic lesions within the weightbearing portion of the acetabular dome. - Labs Labs: Abnormal Lab Results - Last 24 Hours (Table) 04/15/19 04/15/19 04/15/19 Range/Units 10:00 10:00 10:00 Lymphocytes # 0.6 L (1.0-4.8) k/uL PT 13.4 H (9.0-12.0) sec INR 1.3 H (<1.2) APTT 34.4 H (22.0-30.0) sec AST 15 L (17-59) U/L Urine Protein (Negative) Urine Ketones (Negative) Urine Blood (Negative) Ur Leukocyte Esterase (Negative) Urine RBC (0-5) /hpf Urine WBC (0-5) /hpf Urine Mucus (None) /hpf 04/15/19 Range/Units 10:05 Lymphocytes # (1.0-4.8) k/uL PT (9.0-12.0) sec INR (<1.2) APTT (22.0-30.0) sec AST (17-59) U/L Urine Protein Trace H (Negative) Urine Ketones 1+ H (Negative) Urine Blood Moderate H (Negative) Ur Leukocyte Esterase Trace H (Negative) Urine RBC 180 H (0-5) /hpf Urine WBC 6 H (0-5) /hpf Urine Mucus Rare H (None) /hpf Microbiology - Last 24 Hours (Table) 04/15/19 10:05 Urine Culture - Preliminary Urine,Voided H & H 04/15/19 Range/Units 10:00 Hgb 15.3 (13.0-17.5) gm/dL Hct 46.8 (39.0-53.0) % Coagulation 04/15/19 Range/Units 10:00 INR 1.3 H (<1.2) Result Diagrams: 04/15/19 10:00 04/15/19 10:00 Assessment and Plan Assessment: 1. Pathologic right femoral neck fracture 2. History of colon cancer and PE Plan: With the subacute presentation of this fracture and it's radiographic appearance, this is suspicious for a pathologic fracture, especially with no reported history of fall or traumatic event. Recommend further evaluation by heme/onc. Discussed treatment options with the patient, including nonoperative treatment with protected mobilization versus surgery (in the form of a cemented hemiarthroplasty). Since he has been able to ambulate, I recommended starting by mobilizing the patient with PT. Since he had his last dose of Xarelto this morning, we would likely wait 36-48 hours before considering surgery anyway. He was in agreement. He may WBAT with a walker (with assist only). Fall precautions. SCDs for interim DVT prophylaxis. We will reevaluate tomorrow and determine whether to proceed with surgical intervention.
[2019-04-16] MEDS: FORMOTEROL FUMARATE 20 MCG/2 ML NEBU INHALATION SCH ×2 (08:04→19:47)
[2019-04-16] MEDS: IPRATROPIUM 0.5 MG/2.5 ML NEBU INHALATION SCH ×4 (08:04→19:47)
[2019-04-16] MEDS: LORATADINE 10 MG TAB PO SCH (08:20)
[2019-04-16] MEDS: CITALOPRAM HYDROBROMIDE 20 MG TAB PO SCH (08:20)
[2019-04-16] MEDS: ENOXAPARIN 80 MG/0.8 ML SYRINGE SQ SCH ×2 (08:21→23:19)
[2019-04-16] MEDS ORDERED: PANTOPRAZOLE 40 MG/10 ML VIAL IV SCH (09:00)
--- NOTE | 2019-04-16 19:52 | P.PN ---
Subjective Progress Note Date: 04/16/19 The patient was seen and examined at the bedside. He states that he was able to ambulate fairly well with therapy but experienced occasional sharp pains in certain positions. The pain is well controlled at rest but the hip will hurt suddenly if he moves the wrong way. Objective - Vital Signs Vital signs: Vital Signs Temp 98.9 F 04/16/19 14:07 Pulse 69 04/16/19 16:26 Resp 16 04/16/19 14:07 BP 112/68 04/16/19 14:07 Pulse Ox 90 L 04/16/19 14:07 Intake & Output 04/16/19 04/16/19 04/17/19 06:59 18:59 06:59 Intake Total 1200 Output Total 300 Balance -300 1200 Intake: Oral 1200 Output: Urine 300 Other: Voiding Method Urinal Urinal # Voids 2 - Exam Sitting reclined in bed with legs crossed at the ankles. Pain at the extremes of logroll. Positive Stinchfield. - Labs CBC & Chem 7: 04/15/19 10:00 04/15/19 10:00 Labs: Microbiology - Last 24 Hours (Table) 04/15/19 10:05 Urine Culture - Final Urine,Voided Assessment and Plan Assessment: 1. Pathologic right femoral neck fracture 2. History of colon cancer and PE Plan: We again reviewed the pros and cons of nonoperative versus surgical treatment. He has struggled with pain in the hip for a month and it has recently worsened. He would like to go forward with surgery. We discussed the surgical plan and expected postoperative course. Risks and benefits were reviewed in detail. We will plan for cemented hemiarthroplasty in the morning with Dr. Walsh. Specimens from surgery will be sent for pathology. Hold anticoagulants. NPO after midnight.
[2019-04-16] MEDS: MONTELUKAST 10 MG TAB PO SCH (21:01)
--- NOTE | 2019-04-16 22:45 | PN ---
PROGRESS NOTE DATE OF SERVICE: 04/16/2019 PRESENTING COMPLAINT: Right hip fracture. INTERVAL HISTORY: This patient presented with right hip fracture. Pain is controlled. Staying in bed. Started on Lovenox this morning. Xarelto has been held. Awaiting input from Oncology. There was no obvious evidence of pathological fracture except for circumstantial suspicion. REVIEW OF SYSTEMS: Done for constitutional, cardiovascular, GI, pulmonary; relevant findings as above. CURRENT MEDICATIONS: Reviewed. They include Lovenox. PHYSICAL EXAMINATION: Temperature 98.9, pulse 69, respiration 16, blood pressure 112/68, pulse ox 90%. GENERAL APPEARANCE: Sitting up, awake. EYES: Pupils equal. Conjunctivae normal. NECK: JVD not raised. Mass not palpable. RESPIRATORY: Effort normal. LUNGS: Decreased breath sounds. CARDIOVASCULAR: First and second sounds normal. No edema. ABDOMEN: Soft, non-tender. Liver and spleen not palpable. Colostomy bag in place with a parastomal hernia. PSYCHIATRY: Alert and oriented x3. Mood and affect normal. INVESTIGATIONS: No blood work from today. ASSESSMENT: 1. Spontaneous right femur fracture, likely from underlying osteopenia. Pathological fracture needs to be ruled out. 2. Chronic obstructive pulmonary disease in an ex-smoker. 3. Gastroesophageal reflux disease. 4. Irritable bowel syndrome. 5. Chronic parastomal hernia, stable. 6. History of rectal cancer treated with AP resection and chemo and radiation in 2016; currently no obvious evidence of any recurrence. 7. Anxiety, depression not otherwise specified. 8. 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 PLAN: Spoke to the patient. Spoke to COY Galo from Oncology. They will evaluate the patient, and once okay with them, surgery can be proceeded with. Also spoke to the patient and his daughter Allison. In the meantime, continue with Lovenox. MMODL / IJN: [id number] /
[2019-04-17] MEDS ORDERED: ceFAZolin IN SWFI 2 GM/20 ML SYRINGE IVP ONE (07:00)
[2019-04-17] MEDS ORDERED: HYDROmorphone (PF) 1 MG/ML ONE (08:13)
[2019-04-17] MEDS ORDERED: PROPOFOL 10 MG/ML 20 ML VIAL IV ONE (08:13)
[2019-04-17] MEDS ORDERED: fentaNYL (PF) 50 MCG/ML 2 ML AMP ONE (08:13)
[2019-04-17] MEDS ORDERED: PHENYLEPHRINE-0.9% NACL SYG 1 MG/10 ML SYRINGE ONE (08:13)
[2019-04-17] MEDS ORDERED: LIDOCAINE 1% INJ 10MG/ML (20 ML MDV) ONE (08:13)
[2019-04-17] MEDS ORDERED: MIDAZOLAM 2 MG/2 ML VIAL ONE (08:13)
[2019-04-17] MEDS ORDERED: LACTATED RINGERS 1,000 ML IV ONE ×4 (08:13→10:46)
[2019-04-17] MEDS ORDERED: MAGNESIUM SULFATE 4 MEQ/ML 10ML VIAL ONE (08:13)
[2019-04-17] MEDS ORDERED: SUCCINYLCHOLINE CHLORIDE 100 MG/5 ML SYR IV ONE (08:13)
[2019-04-17] MEDS ORDERED: ROCURONIUM BROMIDE 10 MG/ML 10 ML VIAL IV ONE (08:13)
[2019-04-17] MEDS ORDERED: SODIUM CHLORIDE 0.9% 50 ML with ceFAZolin 2,000 MG IV ONE ×2 (08:40)
[2019-04-17] MEDS ORDERED: ceFAZolin 3,000 MG in SODIUM CHLORIDE 0.9% IRRIGATIO 3,000 ML IRRIGATION ONE (08:56)
[2019-04-17] MEDS: IPRATROPIUM 0.5 MG/2.5 ML NEBU INHALATION SCH ×4 (09:16→20:10)
[2019-04-17] MEDS: FORMOTEROL FUMARATE 20 MCG/2 ML NEBU INHALATION SCH ×2 (09:16→20:07)
[2019-04-17] MEDS: ENOXAPARIN 80 MG/0.8 ML SYRINGE SQ SCH ×2 (10:05→20:36)
[2019-04-17] MEDS: LORATADINE 10 MG TAB PO SCH (10:05)
[2019-04-17] MEDS: CITALOPRAM HYDROBROMIDE 20 MG TAB PO SCH (10:05)
[2019-04-17] MEDS ORDERED: HYDROcodone/APAP 5-325MG 1 EACH TAB PO PRN (10:45)
--- NOTE | 2019-04-17 11:03 | P.OP ---
Date of Procedure: 04/17/19 Preoperative Diagnosis: 1. Subacute, displaced right subcapital femoral neck fracture 2. History of rectal cancer with colostomy 3. 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 Over the last several days he has had an increase in his hip pain to the point it was difficult to walk. He was brought to our ER where x-rays and a computed tomography scan showed a slightly displaced subcapital femoral neck fracture. The patient was initially admitted to my partner Dr. Lima. He was seen by internal medicine and cleared for surgery. Both Dr. Lima and myself met with the family in both agreed that operative stabilization with a cemented hemiarthroplasty would be in his best interest given his history of rectal cancer and possibility of pathologic fracture. We had a lengthy discussion with the family on the potential risks and complications of surgery including but not limited to risk of anesthesia, superficial infection, deep infection, delayed wound healing, damage to local blood vessels or nerves, intraoperative fracture, postoperative fracture, postoperative hip dislocation, difficulty ambulating, need for assistive device to ambulate, and inability to regain preinjury level of function, need for furt her surgery, DVT, PE, acute coronary event, stroke, pressure ulcer, pneumonia, and possibly loss of life. We also discussed the possibility of metastatic cancer and the fracture may be pathologic. The patient and his family understand all of these risks and also acknowledge that other less common complications are possible. They provided their verbal and written consent to go forward with surgery. Operative Findings: There was an obvious subcapital femoral neck fracture. The bone was friable and appeared suspicious for a pathologic fracture. The fracture appeared subacute as there was a serous, blood-tinged effusion within the hip capsule. Description of Procedure: The patient was identified in preoperative holding and the correct right hip was marked with my initials. I reviewed the consent form with the patient and his family. All their questions were answered. The patient was then brought back to the operating room by anesthesia. He was positioned on his gurney and a general anesthetic and preoperative antibiotics were administered. The patient was then carefully transferred onto the OR table. He was placed into the lateral decubitus position with the left side down and the affected right hip up. All bony prominences were well-padded. An axillary roll was placed. The patient was secured to the OR table with a Montral frame. The patient's right leg was then prepped and draped in the standard sterile fashion. Prior to starting surgery timeout was performed identifying the correct patient, operative extremity, and procedure. I began by outlining a standard incision for a posterior lateral approach to the hip. Skin incision was made with a 10 blade scalpel. Dissection was carried down through the subcutaneous tissue and fat with electrocautery to the level of the IT band. The IT band was incised longitudinally in line with the posterior border of the femur distally and proximally the fascia and gluteus aubrey were split posteriorly at the tip of the greater trochanter. A Charnley retractor was placed deep. Remnants of the trochanteric bursa were elevated off the posterior femur. The superior edge of the piriformis tendon was identified and a medium Wong elevator was used to develop the interval between the external rotators and posterior hip capsule. The piriformis and external rotators were then released off the posterior border of the femur using electrocautery. Retractors were placed in a posterior capsulotomy was performed with electrocautery. Immediately upon entering the hip joint there was a grey of blood-tinged serous fluid. There was a displaced fracture in the subcapital region of the femoral neck. Gregory retractors were placed and a neck cut was made 1 thumb breadth above the lesser trochanter. A bone hook was used to retract the femur and the femoral head was removed, passed off to the back table, sized and sent to pathology. On inspection of the bone it had friable appearance concerning for metastatic lesion. A box osteotome was then used to gain entrance to the proximal canal followed by a canal finder. A lateralized reamer was then used. I reamed in 1 mm increments until a 14 mm reamer generated chatter distally. I sequentially broached in 1 mm increments taking care to match the patient's [place] version up to a size 14 mm broach which felt stable. A calcar planar was used to bring the cut surface the femoral neck down to the level of the broach. A standard offset 48 mm head trial was placed and the hip was reduced with some difficulty. After the hip was reduced and felt stable in all planes of motion. The hip was gently dislocated with a shoulder hook. Trial implants and the broach were removed. A moistened Ray-Jeremy sponge w as placed in the acetabulum. The proximal femur was prepared for cementing with thorough irrigation. A cement restrictor was placed distally. Anesthesia was notified that we were cementing. A size 14 mm stem was then gently tapped into place taking care to match the patient's [place] version. All excess cement was removed and the stem was held in place as the cement set. Once the cement was c ompletely hardened I again trialed with a 48 mm head which felt stable. The hip was once again carefully dislocated. The trunnion of the stem was cleaned, a 48 mm final head was dispensed, gently tapped into place to engage the Gonzalez taper and the hip was carefully reduced. I once again brought the hip through range of motion and it felt stable in all planes. The hip joint was then thoroughly irrigated with pulsatile lavage. A meticulous posterior capsular repair was performed with 0 Vicryl interrupted stitches. The piriformis tendon was reapproximated the posterior aspect of the greater trochanter using 2-0 Ethibond in a modified Mitesh-Jonathon stitch. The IT band was closed with a running Quill stitch. The deep layer fat was closed with interrupted 0 Vicryl. The superficial subcutaneous tissue was reapproximated using 2-0 Vicryl. The skin was closed with a running subcuticular Quill stitch. A sterile dressing was applied. I verified that all instrument, sponge, and sharp counts were correct. On inspection's the leg lengths felt symmetric. An abduction pillow was applied after the drapes were taken down. The patient was carefully transferred from the OR table onto a gurney and brought to PACU having ptotic procedure well. Leigh Lo PAC was required as a skilled delinquent tax collector assistant for patient positioning, retraction, placement of implants, closure and application of dressing due to the complexity of the case. Plan: Pending postoperative x-rays in the recovery room the patient can weight- bear as tolerated on the right leg. He is to follow posterior hip precautions with either an abduction pillow or knee immobilizer. He will receive 2 doses of postoperative antibiotics. Consulted for assistance with perioperative medical management. Discharge planning is pending.
[2019-04-17] MEDS ORDERED: HYDROmorphone 0.5 MG/0.5 ML SYRINGE IVP ONE (11:19)
[2019-04-17] MEDS: LACTATED RINGERS 1,000 ML IV SCH ×2 (11:35→22:40)
[2019-04-17] MEDS: ONDANSETRON 4 MG/2 ML VIAL IVP PRN (11:35)
--- NOTE | 2019-04-17 11:45 | XR ---
EXAMINATION TYPE: XR Hip Complete RT , ONE VIEW DATE OF EXAM ORDERED: 04/17/2019 HISTORY: Post op. COMPARISON: Previous study dated 04/15/2019. FINDINGS: A right hip hemiarthroplasty has been placed. Prosthetic elements appear in good position in this single frontal projection. IMPRESSION: STATUS POST RIGHT HIP HEMIARTHROPLASTY.
[2019-04-17 12:14] LABS: Basophils # (A) 0.1 k/uL (0-0.2); Basophils % (A) 0 %; Eosinophils # (A) 0.2 k/uL (0-0.7); Eosinophils % (A) 2 %; HCT 44.5 % (39.0-53.0); HGB 14.6 gm/dL (13.0-17.5); Lymphocytes # (A) 1.2 k/uL (1.0-4.8); Lymphocytes % (A) 8 %; MCH 31.6 pg (25.0-35.0); MCHC 32.7 g/dL (31.0-37.0); MCV 96.5 fL (80.0-100.0); Mean Platelet Volume 8.1; Monocytes # (A) 0.6 k/uL (0-1.0); Monocytes % (A) 4 %; Neutrophils # (A) 12.3 k/uL (1.3-7.7); Neutrophils % (A) 85 %; Platelet Count 225 k/uL (150-450); RBC 4.61 m/uL (4.30-5.90); RDW 14.2 % (11.5-15.5); WBC 14.6 k/uL (3.8-10.6)
[2019-04-17] MEDS: ceFAZolin IN SWFI 2 GM/20 ML SYRINGE IVP SCH ×2 (16:00→23:02)
[2019-04-17] MEDS: HYDROcodone/APAP 5-325MG 1 EACH TAB PO PRN ×2 (16:35→22:37)
[2019-04-17] MEDS: SENNOSIDES-DOCUSATE SODIUM 1 EACH TAB PO SCH (20:36)
[2019-04-17] MEDS: MONTELUKAST 10 MG TAB PO SCH (20:36)
--- NOTE | 2019-04-17 23:22 | PN ---
PROGRESS NOTE DATE OF SERVICE: 04/17/2019. PRESENTING COMPLAINT: Right hip fracture. INTERVAL HISTORY: This patient presented with right hip fracture. There is question about underlying pathological fracture. The patient is taken to the OR today a had a right hip hemiarthroplasty. The patient is comfortable. Daughter at the bedside. Pain is controlled. No new issues. REVIEW OF SYSTEMS: Done for constitutional, cardiovascular, GI, pulmonary; relevant findings as above. CURRENT MEDICATIONS: Reviewed. PHYSICAL EXAMINATION: VITAL SIGNS: Temperature 98.3, pulse 76, respirations 12, blood pressure 112/75, pulse ox 96% on 2 L. GENERAL APPEARANCE: Lying in bed comfortable. EYES: Pupils equal. Conjunctivae normal. NECK: JVD not raised. Mass not palpable. Respiratory effort normal. LUNGS: Decreased breath sounds. CARDIOVASCULAR: 1st and 2nd sounds. No edema. ABDOMEN: Soft, nontender. Liver and spleen not palpable. Colostomy bag in place with a parastomal hernia. Right hip hematoma. PSYCHIATRY: Alert and oriented x3. Mood and affect normal. INVESTIGATIONS: White count 14.6, hemoglobin 14.6. ASSESSMENT: 1. Spontaneous right femur fracture followed by right hip hemiarthroplasty. 2. Suspicion for pathological fracture. 3. Chronic obstructive pulmonary disease in an ex-smoker. 4. Gastroesophageal reflux disease. 5. Irritable bowel syndrome. 6. Chronic parastomal hernia. 7. History of rectal cancer followed by chemoradiation and resultant colostomy. 8. Chronic bilateral embolism chronically on Xarelto. PLAN: Care was discussed with the patient and daughter at the bedside. Anticoagulation to be resumed when okay with Orthopedics. MMODL / IJN: [id number] /
--- NOTE | 2019-04-18 02:09 | P.CONS ---
History of Present Illness - Reason for Consult Consult date: 04/16/19 right femur fracture. history - rectal cancer - History of Present Illness The patient is an 83-year-old white male, well known to our service. He is followed by Dr. Pleitez in the outpatient setting. The patient was diagnosed with T3 N0 M0 rectal cancer in 2016 (stage II) with no other risk features. He was treated with concurrent chemoradiation with oral Xeloda, and subsequently underwent surgery. He was then placed on observation and was last seen in the office with physical exam, CT scans and labs showing no evidence of recurrence . The patient had been having some pain in the right hip, starting about 4-5 weeks ago. He states that initially this was intermittent , but over the past 2 weeks or so has become persistent, and more severe. He had outpatient imaging that revealed evidence of fracture the right femur. He was therefore sent in to the hospital and admitted for further management. Review of his films by orthopedic surgery indicated possible malignant involvement. [facility] and recommendations The patient has done well since his surgery for rectal cancer, with no evidence of recurrence so far. Review of Systems Constitutional: Reports fatigue, Denies chills, Denies fever Eyes: denies blurred vision, denies pain Ears: deny: decreased hearing, ear discharge, earache, tinnitus Ears, nose, mouth and throat: Denies headache, Denies sore throat Cardiovascular: Reports as per HPI Respiratory: Denies cough Gastrointestinal: Reports as per HPI Genitourinary: Reports urinary frequency, Reports urinary hesitancy Musculoskeletal: Reports fractures, Reports muscle weakness Musculoskeletal: right: hip pain, hip stiffness Integumentary: Denies pruritus, Denies rash Neurological: Denies numbness, Denies weakness Psychiatric: Denies anxiety, Denies depression Endocrine: Denies fatigue, Denies weight change Past Medical History Past Medical History: Cancer, COPD, GERD/Reflux, Pneumonia, Pulmonary Embolus (PE) Additional Past Medical History / Comment(s): IBS, hx kidney stones, hx basal cell skin cancer,rectal cancer Dx January-last chemo/radiation 04-17-16, HAS OSTOMY History of Any Multi-Drug Resistant Organisms: None Reported Past Surgical History: Bowel Resection, Orthopedic Surgery Additional Past Surgical History / Comment(s): fx left tibia/fibula repair with 19 screws and 2 plates, fx lt femur repair with plate and 3 screws, removal of skin cancer, yusuf. cataract surgery. DEV. SEPTUM SX Past Anesthesia/Blood Transfusion Reactions: No Reported Reaction Past Psychological History: Anxiety, Depression Smoking Status: Former smoker Past Alcohol Use History: None Reported Additional Past Alcohol Use History / Comment(s): quit 1984 Past Drug Use History: None Reported - Past Family History Mother Family Medical History: No Reported History Additional Family Medical History / Comment(s): alcoholism, at age 54 Father History Unknown: Yes Brother(s) Additional Family Medical History / Comment(s): heart problems-5 stents Medications and Allergies Home Medications Medication Instructions Recorded Confirmed Type Citalopram Hydrobromide 20 mg PO QAM 05/23/16 04/15/19 History [Citalopram HBr] Acetaminophen [Tylenol 8 Hour] 1,300 mg PO Q8H PRN 12/22/17 04/15/19 History Montelukast [Singulair] 10 mg PO HS 12/22/17 04/15/19 History Umeclidinium Brm/Vilanterol Tr 1 puff INHALATION RT-DAILY 12/22/17 04/15/19 History [Anoro Ellipta 62.5-25 Mcg INH] Albuterol Inhaler [Ventolin Hfa 1 - 2 puff INHALATION RT-Q6H PRN 04/15/19 04/15/19 History Inhaler] Levocetirizine Dihydrochloride 5 mg PO DAILY 04/15/19 04/15/19 History [Xyzal] Rivaroxaban [Xarelto] 20 mg PO DAILY 04/15/19 04/15/19 History Allergies Allergy/AdvReac Type Severity Reaction Status Date / Time No Known Allergies Allergy Verified 04/15/19 08:43 Physical Exam Vitals: Vital Signs Temp Pulse Pulse Pulse Resp BP Pulse Ox 04/18/19 00:44 98.2 F 82 15 115/73 97 04/17/19 20:19 91 04/17/19 20:05 96 04/17/19 19:23 97.4 F L 84 14 102/66 93 L 04/17/19 16:45 95 04/17/19 16:38 96 04/17/19 16:00 12 04/17/19 15:17 98.3 F 76 12 114/75 96 04/17/19 13:32 76 114/75 04/17/19 13:15 76 113/71 04/17/19 13:00 76 111/75 04/17/19 12:45 73 115/75 04/17/19 12:30 72 117/75 04/17/19 12:15 73 112/71 04/17/19 12:00 67 114/74 04/17/19 11:45 68 126/77 04/17/19 11:30 97.6 F 66 12 155/76 91 L 04/17/19 11:15 62 16 137/68 96 04/17/19 11:00 58 L 16 130/63 97 04/17/19 10:46 98.4 F 56 L 16 113/56 96 04/17/19 07:00 98.4 F 90 12 110/72 91 L Intake and Output 04/17/19 04/17/19 04/18/19 14:59 22:59 06:59 Intake Total 2351 350 Output Total 400 Balance 2351 350 -400 Intake: IV 2051 Intake, IV Titration 300 350 Amount Lactated Ringers 1,000 ml 300 350 @ 100 mls/hr IV .Q10H MARIXA Rx#:[id number] Output: Urine 400 Results CBC & Chem 7: 04/17/19 11:36 04/15/19 10:00 Labs: Abnormal Lab Results - Last 24 Hours (Table) 04/17/19 Range/Units 11:36 WBC 14.6 H (3.8-10.6) k/uL Neutrophils # 12.3 H (1.3-7.7) k/uL Chest x-ray: report reviewed CT scan - abdomen: report reviewed CT scan - pelvis: report reviewed Assessment and Plan (1) Hip fracture Narrative/Plan: The patient is presenting with symptoms over the past several weeks with worsening, with imaging revealing right hip fracture. He denies any direct trauma though we cannot rule out some twisting with day-to-day activities The official radiology report of his CAT scan, as well as hip x-ray notes definite evidence of fracture in the right femoral neck. However those reports do not mention any specific changes that are more suggestive of malignancy. However features noted on orthopedic surgeon's own evaluation of of the films, are more suspicious for malignancy. However these are not definitive, and could potentially be due to osteoporosis, and changes due to acute fracture. In addition, metastatic recurrence with limited bone lesion, from a stage II rectal cancer, appropriately treated, after more than 2 years, would be a rare clinical presentation Even if this lesion is malignant, imaging so far shows no other burden of disease. The patient's performance status is otherwise reasonable. Therefore from the oncology standpoint, it is quite reasonable for the patient to proceed with surgery for the femoral lesion. That would have the lower advantage of managing his symptoms, as well as obtaining biopsies for definitive diagnosis. The above rationale was discussed in detail with the patient and his family. They expressed understanding of the same. Therefore the recommendation from oncology would be to proceed with surgical intervention which is felt to be required according to orthopedic evaluation Current Visit: Yes Status: Acute Code(s): S72.009A - FRACTURE OF UNSP PART OF NECK OF UNSP FEMUR, INIT SNOMED Code(s): 501968745 (2) History of rectal cancer Narrative/Plan: diagnostic and therapeutic Circumstances as noted above. Imaging as well as labs in 11/03 had shown no recurrence. Current imaging also shows no suspicious lesions, other than the right hip area. As noted above this clinical presentation as metastatic recurrence would be quite rare for his comparatively early stage rectal cancer. - Check CEA - Await pathology reports from the hip surgery. Current Visit: Yes Status: Acute Code(s): Z85.048 - PRSNL HX OF MALIG NEOPLM OF RECTUM, RECTOSIG JUNCT, AND ANUS SNOMED Code(s): 387391683 Plan: if the right femur lesion is indeed malignant, this could also be due to a totally new/separate primary. Await biopsy reports in this regard. refer to the admitting, Service, and orthopedic surgery for continued management
[2019-04-18] MEDS: HYDROcodone/APAP 5-325MG 1 EACH TAB PO PRN ×3 (04:48→16:09)
[2019-04-18] MEDS: LACTATED RINGERS 1,000 ML IV SCH ×2 (07:15→07:16)
[2019-04-18] MEDS: IPRATROPIUM 0.5 MG/2.5 ML NEBU INHALATION SCH ×4 (08:53→20:54)
[2019-04-18] MEDS: FORMOTEROL FUMARATE 20 MCG/2 ML NEBU INHALATION SCH ×2 (08:53→20:54)
[2019-04-18] MEDS: LORATADINE 10 MG TAB PO SCH (10:07)
[2019-04-18] MEDS: CITALOPRAM HYDROBROMIDE 20 MG TAB PO SCH (10:07)
[2019-04-18] MEDS: ENOXAPARIN 80 MG/0.8 ML SYRINGE SQ SCH ×2 (10:07→20:12)
--- NOTE | 2019-04-18 14:29 | P.PN ---
Subjective Progress Note Date: 04/18/19 Patient is doing well today and only has mild discomfort in his right hip. Objective - Vital Signs Vital signs: Vital Signs Temp 98 F 04/18/19 08:21 Pulse 92 04/18/19 13:05 Resp 12 04/18/19 08:21 BP 123/70 04/18/19 08:21 Pulse Ox 97 04/18/19 08:21 Intake & Output 04/17/19 04/18/19 04/18/19 18:59 06:59 18:59 Intake Total 2351 350 Output Total 400 Balance 2351 -50 Intake: IV 2050 Intake, IV Titration 300 350 Amount Lactated Ringers 1,000 ml 300 350 @ 100 mls/hr IV .Q10H MARIXA Rx#:[id number] Output: Urine 400 Other: Voiding Method Urinal # Voids 1 - Exam On exam the patient is sitting comfortably in a chair next to the bed. He is alert and able to answer questions. His dressing appears clean. His thigh is minimally tender. Motor and sensory function are intact in the right foot. - Labs CBC & Chem 7: 04/17/19 11:36 04/15/19 10:00 Assessment and Plan (1) Hip fracture Current Visit: Yes Status: Acute Code(s): S72.009A - FRACTURE OF UNSP PART OF NECK OF UNSP FEMUR, INIT SNOMED Code(s): 983982952 Plan: Postoperative day #1 status post right hip hemiarthroplasty, doing well 1. Weight bear as tolerated right leg 2. Posterior hip precautions with either an abduction pillow or knee immobilizer for 6 weeks 3. 2 doses postoperative antibiotics 4. Will defer to internal medicine for duration and choice of DVT prophylaxis given the patient's medical history 5. Dressing changes as needed 6. Awaiting final pathology from femoral head and reamings sent during surgery due to patient's history of rectal cancer, preventing history, and findings at surgery suggestive of metastatic lesion
[2019-04-18] MEDS: SENNOSIDES-DOCUSATE SODIUM 1 EACH TAB PO SCH (20:12)
[2019-04-18] MEDS: MONTELUKAST 10 MG TAB PO SCH (20:12)
--- NOTE | 2019-04-19 00:09 | PN ---
PROGRESS NOTE DATE OF SERVICE: April 18, 2019. PRESENTING COMPLAINT: Right hip surgery. INTERVAL HISTORY: Patient presented with right hip fracture status post surgery, stable. Did work with therapy. Pain is controlled. REVIEW OF SYSTEMS: Done for constitutional, cardiovascular, GI, pulmonary, musculoskeletal and relevant findings as above. CURRENT MEDICATIONS: Reviewed. PHYSICAL EXAMINATION: VITAL SIGNS: Temperature 98, pulse 77. Respirations 12, blood pressure 112/69, pulse ox 95 percent on 2 L. GENERAL APPEARANCE: Sitting up in a chair comfortable. EYES: Pupils are equal. Conjunctivae normal. NECK: JVD not raised. Mass not palpable. RESPIRATORY: Effort normal lungs. LUNGS: Decreased breath sounds. CARDIOVASCULAR: 1st and 2nd sounds normal. No edema. ABDOMEN: Soft, nontender. Liver and spleen not palpable. Colostomy bag in place with parastomal hernia. INVESTIGATIONS: No blood work from today. ASSESSMENT: 1. Right femur fracture followed by right hip hemiarthroplasty. 2. Pathological fracture to be ruled out per biopsy. 3. Chronic obstructive pulmonary disease in an ex-smoker. 4. Gastroesophageal reflux disease. 5. Irritable bowel syndrome. 6. Chronic parastomal hernia. 7. History of rectal cancer, followed by chemoradiation and resultant colostomy. 8. Chronic bilateral embolism. 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 PLAN: We will DC the patient's Lovenox after tonight. Resume patient's Xarelto tomorrow morning. We will consult Dr. Potts for inpatient rehab. Care was discussed at length with the patient and daughter. The patient wishes to be a DO NOT RESUSCITATE CODE. Looking at geriatric social worker for discharge planning for tomorrow. MMODL / IJN: [id number] /
[2019-04-19] MEDS: HYDROcodone/APAP 5-325MG 1 EACH TAB PO PRN ×2 (03:36→11:17)
[2019-04-19 07:46] LABS: Basophils % (A) 0 %; Eosinophils # (A) 0.2 k/uL (0-0.7); Eosinophils % (A) 2 %; HCT 35.1 % (39.0-53.0); HGB 11.9 gm/dL (13.0-17.5); Lymphocytes # (A) 0.6 k/uL (1.0-4.8); Lymphocytes % (A) 6 %; MCH 32.6 pg (25.0-35.0); MCHC 33.9 g/dL (31.0-37.0); Mean Platelet Volume 8.5; Monocytes # (A) 0.8 k/uL (0-1.0); Monocytes % (A) 7 %; Neutrophils % (A) 83 %; Platelet Count 155 k/uL (150-450); RBC 3.65 m/uL (4.30-5.90); WBC 10.8 k/uL (3.8-10.6)
[2019-04-19 08:07] VITALS: BP 119/62; RESP 16; TEMP 98.4
[2019-04-19] MEDS: IPRATROPIUM 0.5 MG/2.5 ML NEBU INHALATION SCH ×2 (08:11→12:20)
[2019-04-19] MEDS: FORMOTEROL FUMARATE 20 MCG/2 ML NEBU INHALATION SCH (08:12)
[2019-04-19 08:14] LABS: Calcium 8.6 mg/dL (8.4-10.2); Potassium 4.5 mmol/L (3.5-5.1)
[2019-04-19] MEDS ORDERED: RIVAROXABAN 20 MG TAB PO SCH (09:00)
[2019-04-19] MEDS: CITALOPRAM HYDROBROMIDE 20 MG TAB PO SCH (09:02)
[2019-04-19] MEDS: LORATADINE 10 MG TAB PO SCH (09:02)
--- NOTE | 2019-04-19 12:10 | DS ---
DISCHARGE SUMMARY DATE OF ADMISSION: 04/15/2019 DATE OF DISCHARGE: 04/19/2019 FINAL DIAGNOSES: 1. Right femur fracture followed by right hip hemiarthroplasty. 2. Chronic obstructive pulmonary disease in an ex-smoker. 3. Gastroesophageal reflux disease. 4. Irritable bowel syndrome. 5. Chronic parastomal hernia. 6. History of rectal cancer, followed by chemoradiation resultant colostomy. 7. Chronic bilateral embolism for which patient is chronically on Xarelto. 8. Acute postoperative blood loss anemia expected from surgery. CONSULTATION: Dr. Sullivan from Oncology; Dr. Walsh from Orthopedics. HOSPITAL COURSE: This very pleasant gentleman has been having pain in the right hip, presented to the ER with worsening pain, found to have a fracture of the right femur. The patient was taken to the operating room and found to have a subacute displaced right subcapital femoral neck fracture. Did undergo a right hip cemented hemiarthroplasty. Post procedure, he is doing well, working with physical therapy. It is unlikely that the patient has any pathological fracture, but bone biopsy was pending. The patient will be followed up with Dr. Pleitez in the office. Otherwise, patient is doing well. Patient is chronically on Xarelto. On examination, temperature 98.4, pulse 74, respiration 16, blood pressure 119/62, pulse ox 93%on room air. GENERAL APPEARANCE: Lying in bed, comfortable. LUNGS: Fair air entry. CARDIOVASCULAR: First and second sounds normal. RIGHT HIP: Healing well. INVESTIGATIONS: White count 10.8, hemoglobin 11.9 potassium 4.5. DISCHARGE MEDICATIONS: 1. Celexa 20 mg p.o. daily. 2. Tylenol 1300 mg p.o. q.8 p.r.n. 3. Singulair 10 mg q.h.s. 4. Anoro Ellipta 1 puff daily. 5. Ventolin HFA 1 to 2 puffs q.6 p.r.n. 6. Xyzal 5 mg p.o. daily. 7. Xarelto 20 mg p.o. daily. 8. Senokot-S 2 tablets p.o. q.h.s. 9. Pain medications per Orthopedics. 10.Ferrous sulfate 1 tablet twice a day. DISPOSITION: ECF. Follow up with Dr. Schmid. Follow up with Dr. Pleitez in one week. Follow up with Orthopedics. Activity: Orders as per Orthopedics. Care was discussed with the patient. MMFRANCOISEL / MANDYN: [id number] /
--- NOTE | 2019-04-19 12:31 | P.PN ---
Subjective Progress Note Date: 04/19/19 This patient is an 83- year old male with a past medical history of rectal cancer s/p colostomy and pulmonary embolism that presented on 04/15/19 with a one-month history of increasing right hip pain. The patient was found to have a femoral neck fracture. There was no trauma that he was aware of. Patient un derwent a right hip hemiarthroplasty on 04/17/[address] Walsh. Today is post-operative day #2. Patient states he feels well, he states his hip pain is well-controlled. He has been up with therapy and is having no significant issues with ambulation, with the assistance of a walker. The patient denies nausea, vomiting, fevers, chills, numbness or tingling of the right leg. Patient has no new complaints today. Vital signs stable. Objective - Vital Signs Vital signs: Vital Signs Temp 98.4 F 04/19/19 07:19 Pulse 88 04/19/19 08:38 Resp 16 04/19/19 07:19 BP 119/62 04/19/19 07:19 Pulse Ox 95 04/19/19 08:15 Intake & Output 04/18/19 04/19/19 04/19/19 18:59 06:59 18:59 Intake Total 280 Output Total 250 500 Balance 30 -500 Intake: Oral 280 Output: Urine 250 500 Other: Voiding Method Urinal # Voids 1 1 - Exam On exam the patient is sitting comfortably in bed. He is alert and oriented 3. His dressing appears clean, dry, intact. There is no blood or drainage through the dressing. His thigh is minimally tender. Motor and sensory function are intact in the right foot. Dorsalis pedis pulse palpable. Abductor pillow in place. Calves are soft and non tender bilaterally. - Labs CBC & Chem 7: 04/19/19 06:58 04/19/19 06:58 Labs: Abnormal Lab Results - Last 24 Hours (Table) 04/19/19 04/19/19 Range/Units 06:58 06:58 WBC 10.8 H (3.8-10.6) k/uL RBC 3.65 L (4.30-5.90) m/uL Hgb 11.9 L (13.0-17.5) gm/dL Hct 35.1 L (39.0-53.0) % Neutrophils # 9.0 H (1.3-7.7) k/uL Lymphocytes # 0.6 L (1.0-4.8) k/uL Sodium 135 L (137-145) mmol/L Glucose 111 H (74-99) mg/dL Assessment and Plan Assessment: Right femoral neck fracture s/p right hip hemiarthroplasty Post operative day #2 Plan: - Weight bear as tolerated right leg. Continue physical therapy for gait and balance training. Up with assistance, up with a walker. - Continue posterior hip precautions with either an abduction pillow or knee immobilizer for 6 weeks. - 2 doses postoperative antibiotics complete. Continue current pain medications. - Will defer to internal medicine for duration and choice of DVT prophylaxis. - Dressing changes as needed. - Awaiting final pathology from femoral head and reamings sent during surgery due to patient's history of rectal cancer and findings at surgery suggestive of metastatic lesion. - Follow-up in the office with Dr. Walsh in two weeks. Patient discussed with Dr. Walsh.
[2019-04-19 12:32] VITALS: PULSE 85
--- NOTE | 2019-04-27 12:46 | CDI ---
Documentation Clarification Form Date: 04-27-19 From: RENETTA Nichols Phone: If you have question, contact Taylor Cho at [phone] M-F 8:30 am to 6pm Admit Date: 04/15/2019 12:36:00 PM Patient Name: Jack Blanchard Visit Number: [id number] Discharge Date: 04/19/2019 3:08:00 PM ATTENTION: The Clinical Documentation Specialists (CDI) and [facility] Coding Staff appreciate your assistance in clarifying documentation. Please respond to the clarification below the line at the bottom and electronically sign. The CDI & [facility] Coding staff will review the response and follow-up if needed. Please note: Queries are made part of the Legal Health Record. If you have any questions, please contact the author of this message via ITS. Dr. Lalito Otoole The patient admitted with progressive pain in the right hip. X-ray confirmed a right femoral neck fracture. Right hip cemented hemiarthroplasty was performed on 04/17. Patient has a history of rectal cancer and he is evaluated for the possibility of pathologic fracture. Operative findings: noteable for friable bone that appeared suspicious for a pathologic fracture. Discharge summary: It is unlikely that the patient has any pathological fracture, but bone biopsy was pending. Pathology report findings: Benign bone showing features consistent with a fracture. In your professional opinion, can you please clarify the type of fracture this patient had. Pathologic (please specify cause) Spontaneous Traumatic Other (please specify) Unable to determine spontaneous MTDD
== END 2019-04-19 15:08 | DRG 470 ==
LOC: EC 08:31 → 4SSUR 12:36
PROVIDERS: ADMIT Hospitalist; ATTEND Hospitalist
PROC: 0SRR0J9 Replacement of Right Hip Joint, Femoral Surface with Synthetic Substitute, Cemented, Open Approach (ICD-10-PCS; principal; 2019-04-15)
DX: M84.451A Pathological fracture, right femur, initial encounter for fracture (principal); D62 Acute posthemorrhagic anemia; K43.5 Parastomal hernia without obstruction or gangrene; K21.9 Gastro-esophageal reflux disease without esophagitis; F32.9 Major depressive disorder, single episode, unspecified; F41.9 Anxiety disorder, unspecified; J44.9 Chronic obstructive pulmonary disease, unspecified; K58.9 Irritable bowel syndrome, unspecified; M85.80 Other specified disorders of bone density and structure, unspecified site; Z66 Do not resuscitate; Z79.01 Long term (current) use of anticoagulants; Z79.899 Other long term (current) drug therapy; Z87.891 Personal history of nicotine dependence; Z93.3 Colostomy status; Z85.048 Personal history of other malignant neoplasm of rectum, rectosigmoid junction, and anus; Z90.49 Acquired absence of other specified parts of digestive tract; Z92.21 Personal history of antineoplastic chemotherapy; Z85.828 Personal history of other malignant neoplasm of skin; Z92.3 Personal history of irradiation; Z87.01 Personal history of pneumonia (recurrent); Z98.42 Cataract extraction status, left eye; Z98.41 Cataract extraction status, right eye; Z86.73 Personal history of transient ischemic attack (TIA), and cerebral infarction without residual deficits; Z87.442 Personal history of urinary calculi; Z86.711 Personal history of pulmonary embolism; Z82.49 Family history of ischemic heart disease and other diseases of the circulatory system
CPT/HCPCS: 36415; 71045; 72170; 73502; 74177; 80048; 80053; 81001; 82150; 82378; 83690; 85025; 85610; 85730; 87086; 88305; 88311; 93005; 94640; 96361; 96374; 96375; 99285

== ENCOUNTER 2019-12-02 10:19 | Day surgery (SDC) | payer MEDICARE, OTHER ==
[2019-11-30 15:50] VITALS: BMI 26.6
[2019-12-02 10:52] VITALS: RESP 16; TEMP 98.7
[2019-12-02] MEDS ORDERED: LIDOCAINE 1% 20 ML VIAL (10MG/ML) FOR IV START IV ONE (11:06)
[2019-12-02] MEDS ORDERED: PROPOFOL 10 MG/ML 20 ML VIAL IV ONE (11:40)
--- NOTE | 2019-12-02 12:04 | P.PCN ---
Date of Procedure: 12/02/19 Procedure(s) Performed: BRIEF HISTORY: Patient is a 84-year-old pleasant 8 male scheduled for an elective colonoscopy as a part of surveillance of prior history of colon rectal neoplasia diagnosed in a half years ago. He is status post neoadjuvant chemoradiation followed by surgery with colostomy. He scheduled for a surveillance colonoscopy today. PROCEDURE PERFORMED: Colonoscopy With snare polypectomy PREOPERATIVE DIAGNOSIS: history of rectal cancer status post chemoradiation followed by colostomy Anesthesia. IV sedation PROCEDURE: After informed consent was obtained, the patient, was brought into the endoscopy unit. IV sedation was administered by Anesthesia under continuous monitoring. colostomy site was exposed. Initially the Olympus CF-160 flexible video colonoscope was then inserted in tcolostomyadually advanced into the cecum without any difficulty. Careful examination was performed as the scope was gradually being withdrawn. Ileocecal valve and the appendiceal orifice were visualized and appeared normal. Prep was excellent. in the base of the cecum there was a 5 limited polyp that was removed by snare polypectomy. Mucosa of the cecum, ascending colon, transverse colon, descending colon, sigmoid colon, appeared normal. Scattered left-sided diverticulosis seen. The patient tolerated the procedure well. IMPRESSION: 5 mm sessile cecal polyp status post polypectomy scattered left-sided diverticulosis RECOMMENDATIONS: Findings of this examination were discussed with the patient as well as his family. He was advised to follow with the biopsy results. If the biopsy shows an adenoma he can have a repeat colonoscopy in 3 years.
[2019-12-02 12:33] VITALS: BP 141/67; PULSE 64
== END 2019-12-02 12:45 | disposition home or self-care (01) ==
LOC: ORWHC2ENDO 10:19
PROVIDERS: ATTEND Internal Medicine Gastroenterology
DX: Z08 Encounter for follow-up examination after completed treatment for malignant neoplasm (principal); D12.0 Benign neoplasm of cecum; K57.30 Diverticulosis of large intestine without perforation or abscess without bleeding; Z93.3 Colostomy status; J44.9 Chronic obstructive pulmonary disease, unspecified; K21.9 Gastro-esophageal reflux disease without esophagitis; Z79.01 Long term (current) use of anticoagulants; Z79.899 Other long term (current) drug therapy; Z92.21 Personal history of antineoplastic chemotherapy; Z92.3 Personal history of irradiation; Z85.048 Personal history of other malignant neoplasm of rectum, rectosigmoid junction, and anus; Z87.891 Personal history of nicotine dependence; Z87.442 Personal history of urinary calculi; Z87.19 Personal history of other diseases of the digestive system
CPT/HCPCS: 88305; 44394; J2704

== ENCOUNTER 2019-12-20 16:33 | Observation (INO) | payer MEDICARE, OTHER ==
[2019-12-20] MEDS ORDERED: SODIUM CHLORIDE 0.9% 1,000 ML IV STA (17:34)
--- NOTE | 2019-12-20 17:34 | ED ---
Weakness HPI - General Chief complaint: Shortness of Breath Stated complaint: heart concerns Time Seen by Provider: 12/20/19 17:16 Source: patient, RN notes reviewed, old records reviewed Mode of arrival: ambulatory Limitations: no limitations - History of Present Illness Initial comments: This is an 84 year old male to the ER today for evaluation of irregular heart rate, elevated rate and palpitations. Patient has no current complaints but was feeling pekid today. Patient denies current SOB, but does admit to feeling sweaty and SOB earlier. Patient has no significant recent medication changes.. Patient denies drugs or alcohol. Patient has recording on [facility] showing elevated heart rate and possible Afib. MD Complaint: generalized weakness -: hour(s) Location: generalized Severity: moderate Severity scale (1-10): 5 Consistency: constant, intermittent, now resolved Improves with: none Worsens with: none Context: new medication Associated Symptoms: denies other symptoms - Related Data Home Medications Medication Instructions Recorded Confirmed Acetaminophen [Tylenol 8 Hour] 1,300 mg PO Q8H PRN 12/22/17 12/02/19 Montelukast [Singulair] 10 mg PO HS 12/22/17 12/02/19 Umeclidinium Brm/Vilanterol Tr 1 puff INHALATION RT-DAILY 12/22/17 12/02/19 [Anoro Ellipta 62.5-25 Mcg INH] Albuterol Inhaler [Ventolin Hfa 1 - 2 puff INHALATION RT-Q6H PRN 04/15/19 12/02/19 Inhaler] Levocetirizine Dihydrochloride 5 mg PO DAILY 04/15/19 12/02/19 [Xyzal] Citalopram Hydrobromide [CeleXA] 20 mg PO DAILY 12/20/19 12/20/19 Rivaroxaban [Xarelto] 10 mg PO DAILY 12/20/19 12/20/19 Allergies Allergy/AdvReac Type Severity Reaction Status Date / Time No Known Allergies Allergy Verified 12/20/19 18:57 Review of Systems ROS Statement: Those systems with pertinent positive or pertinent negative responses have been documented in the HPI. ROS Other: All systems not noted in ROS Statement are negative. Past Medical History Past Medical History: Cancer, COPD, GERD/Reflux, Pneumonia, Pulmonary Embolus (PE) Additional Past Medical History / Comment(s): IBS, hx kidney stones, hx basal cell skin cancer,rectal cancer Dx January-last chemo/radiation 04-17-16, HAS OSTOMY History of Any Multi-Drug Resistant Organisms: None Reported Past Surgical History: Bowel Resection, Joint Replacement, Orthopedic Surgery Additional Past Surgical History / Comment(s): fx left tibia/fibula repair with 19 screws and 2 plates, fx lt femur repair with plate and 3 screws, removal of skin cancer, yusuf. cataract surgery. DEV. SEPTUM SX, COLONOSCOPY, RT PARTIAL HIP REPLACEMENT 04/17/19, OSTOMY Past Anesthesia/Blood Transfusion Reactions: No Reported Reaction Past Psychological History: Anxiety, Depression Smoking Status: Former smoker Past Alcohol Use History: None Reported Past Drug Use History: None Reported - Past Family History Mother Family Medical History: No Reported History Additional Family Medical History / Comment(s): alcoholism, at age 54 Father History Unknown: Yes Brother(s) Additional Family Medical History / Comment(s): heart problems-5 stents General Exam Limitations: no limitations General appearance: alert, in no apparent distress Head exam: Present: atraumatic, normocephalic, normal inspection Eye exam: Present: normal appearance, PERRL, EOMI. Absent: scleral icterus, conjunctival injection, periorbital swelling ENT exam: Present: normal exam, mucous membranes moist Neck exam: Present: normal inspection. Absent: tenderness, meningismus, lymphadenopathy Respiratory exam: Present: normal lung sounds bilaterally. Absent: respiratory distress, wheezes, rales, rhonchi, stridor Cardiovascular Exam: Present: tachycardia, irregular rhythm, normal heart sounds. Absent: systolic murmur, diastolic murmur, rubs, gallop, clicks GI/Abdominal exam: Present: soft, normal bowel sounds. Absent: distended, tenderness, guarding, rebound, rigid Extremities exam: Present: normal inspection, full ROM, normal capillary refill. Absent: tenderness, pedal edema, joint swelling, calf tenderness Back exam: Present: normal inspection Neurological exam: Present: alert, oriented X3, CN II-XII intact Psychiatric exam: Present: normal affect, normal mood Skin exam: Present: warm, dry, intact, normal color. Absent: rash Course Vital Signs 12/20/19 12/20/19 12/20/19 16:39 17:15 18:38 Temperature 97.9 F Pulse Rate 142 H 86 62 Respiratory 18 18 18 Rate Blood Pressure 137/83 156/81 O2 Sat by Pulse 97 98 Oximetry - Reevaluation(s) Reevaluation #1: 12/20/19 17:34 medical record is reviewed Reevaluation #2: 12/20/19 18:59 Patient's symptoms are improved remained improved remains in NSR Reevaluation #3: 12/20/19 19:00 patient denies chest pain - Consultations Consultation #1: spoke w Dr Otoole who is agreeable to admit EKG Findings - EKG Comments: EKG Findings:: EKG shows Aflutter, rate of 135 QRS 132, QTc 465. repeat. EKG shows NSR rate 60 AK 198 QRS 136 QTc 472 Medical Decision Making - Medical Decision Making 84 male who presented with palpitations and dizziness, symptoms currently improved, converted from AfibRVR to NSR. Patient to be admitted for cardiology evaluation. - Lab Data Result diagrams: 12/20/19 17:37 12/20/19 17:37 Lab Results 12/20/19 12/20/19 12/20/19 Range/Units 17:37 17:37 17:37 WBC 7.9 (3.8-10.6) k/uL RBC 4.95 (4.30-5.90) m/uL Hgb 15.5 (13.0-17.5) gm/dL Hct 47.6 (39.0-53.0) % MCV 96.2 (80.0-100.0) fL MCH 31.4 (25.0-35.0) pg MCHC 32.6 (31.0-37.0) g/dL RDW 11.9 (11.5-15.5) % Plt Count 237 (150-450) k/uL Neutrophils % 72 % Lymphocytes % 11 % Monocytes % 6 % Eosinophils % 6 % Basophils % 3 % Neutrophils # 5.7 (1.3-7.7) k/uL Lymphocytes # 0.9 L (1.0-4.8) k/uL Monocytes # 0.5 (0-1.0) k/uL Eosinophils # 0.5 (0-0.7) k/uL Basophils # 0.2 (0-0.2) k/uL PT 10.4 (9.0-12.0) sec INR 1.0 (<1.2) APTT 27.5 (22.0-30.0) sec Sodium 139 (137-145) mmol/L Potassium 4.0 (3.5-5.1) mmol/L Chloride 107 (98-107) mmol/L Carbon Dioxide 24 (22-30) mmol/L Anion Gap 8 mmol/L BUN 13 (9-20) mg/dL Creatinine 0.99 (0.66-1.25) mg/dL Est GFR (CKD-EPI)AfAm 81 (>60 ml/min/1.73 sqM) Est GFR (CKD-EPI)NonAf 70 (>60 ml/min/1.73 sqM) Glucose 101 H (74-99) mg/dL Calcium 9.4 (8.4-10.2) mg/dL Phosphorus 2.6 (2.5-4.5) mg/dL Magnesium 2.2 (1.6-2.3) mg/dL Total Bilirubin 0.5 (0.2-1.3) mg/dL AST 17 (17-59) U/L ALT 14 (4-49) U/L Alkaline Phosphatase 66 (38-126) U/L Creatine Kinase 57 (55-170) U/L Troponin I (0.000-0.034) ng/mL NT-Pro-B Natriuret Pep pg/mL Total Protein 6.1 L (6.3-8.2) g/dL Albumin 3.7 (3.5-5.0) g/dL TSH 3.860 (0.465-4.680) mIU/L 12/20/19 12/20/19 Range/Units 17:37 17:37 WBC (3.8-10.6) k/uL RBC (4.30-5.90) m/uL Hgb (13.0-17.5) gm/dL Hct (39.0-53.0) % MCV (80.0-100.0) fL MCH (25.0-35.0) pg MCHC (31.0-37.0) g/dL RDW (11.5-15.5) % Plt Count (150-450) k/uL Neutrophils % % Lymphocytes % % Monocytes % % Eosinophils % % Basophils % % Neutrophils # (1.3-7.7) k/uL Lymphocytes # (1.0-4.8) k/uL Monocytes # (0-1.0) k/uL Eosinophils # (0-0.7) k/uL Basophils # (0-0.2) k/uL PT (9.0-12.0) sec INR (<1.2) APTT (22.0-30.0) sec Sodium (137-145) mmol/L Potassium (3.5-5.1) mmol/L Chloride (98-107) mmol/L Carbon Dioxide (22-30) mmol/L Anion Gap mmol/L BUN (9-20) mg/dL Creatinine (0.66-1.25) mg/dL Est GFR (CKD-EPI)AfAm (>60 ml/min/1.73 sqM) Est GFR (CKD-EPI)NonAf (>60 ml/min/1.73 sqM) Glucose (74-99) mg/dL Calcium (8.4-10.2) mg/dL Phosphorus (2.5-4.5) mg/dL Magnesium (1.6-2.3) mg/dL Total Bilirubin (0.2-1.3) mg/dL AST (17-59) U/L ALT (4-49) U/L Alkaline Phosphatase (38-126) U/L Creatine Kinase (55-170) U/L Troponin I <0.012 (0.000-0.034) ng/mL NT-Pro-B Natriuret Pep 219 pg/mL Total Protein (6.3-8.2) g/dL Albumin (3.5-5.0) g/dL TSH (0.465-4.680) mIU/L Disposition Clinical Impression: Atrial fibrillation with RVR Disposition: ADMITTED IP TO THIS HOSP Condition: Good Is patient prescribed a controlled substance at d/c from ED?: No
[2019-12-20 17:54] LABS: Basophils # (A) 0.2 k/uL (0-0.2); Basophils % (A) 3 %; Eosinophils # (A) 0.5 k/uL (0-0.7); Eosinophils % (A) 6 %; HCT 47.6 % (39.0-53.0); HGB 15.5 gm/dL (13.0-17.5); Lymphocytes # (A) 0.9 k/uL (1.0-4.8); Lymphocytes % (A) 11 %; MCH 31.4 pg (25.0-35.0); MCHC 32.6 g/dL (31.0-37.0); MCV 96.2 fL (80.0-100.0); Mean Platelet Volume 8.8; Monocytes # (A) 0.5 k/uL (0-1.0); Monocytes % (A) 6 %; Neutrophils # (A) 5.7 k/uL (1.3-7.7); Neutrophils % (A) 72 %; Platelet Count 237 k/uL (150-450); RBC 4.95 m/uL (4.30-5.90); RDW 11.9 % (11.5-15.5); WBC 7.9 k/uL (3.8-10.6)
[2019-12-20 17:59] LABS: Partial Thromboplastin Time 27.5 sec (22.0-30.0); Prothrombin Time 10.4 sec (9.0-12.0)
[2019-12-20 18:02] LABS: Albumin 3.7 g/dL (3.5-5.0); Calcium 9.4 mg/dL (8.4-10.2); Magnesium 2.2 mg/dL (1.6-2.3); Phosphorus 2.6 mg/dL (2.5-4.5); Total Bilirubin 0.5 mg/dL (0.2-1.3); Total Protein 6.1 g/dL (6.3-8.2)
[2019-12-20] MEDS ORDERED: ASPIRIN 81 MG PO STA (18:30)
[2019-12-20] MEDS ORDERED: NITROGLYCERIN SL TABS 0.4 MG TAB SUBLINGUAL PRN (18:30)
[2019-12-21 05:00] VITALS: RESP 18
[2019-12-21 06:18] LABS: Cholesterol 197 mg/dL (<200); HDL Cholesterol 40 mg/dL (40-60); LDL Cholesterol,Calculated 140 mg/dL (0-99); Triglycerides 83 mg/dL (<150)
[2019-12-21] MEDS ORDERED: FORMOTEROL FUMARATE 20 MCG/2 ML NEBU INHALATION SCH (08:00)
--- NOTE | 2019-12-21 08:55 | P.CRDCN ---
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 He is otherwise a fairly active 84-year-old gentleman. According to the patient, the day of his admission, he states that he just overall wasn't feeling very well. He denied any chest discomfort, no palpitations or heart racing, no shortness of breath, no dizziness or lightheadedness. He does have an apple watch, he noted on that that his heart rate was very fast, and also irregular. For this reason he came to the emergency room for further evaluation and treatment. His EKG on presentation here showed atrial fibrillation with a rapid ventricular response, right bundle branch block pattern. Subsequently the patient converted to normal sinus rhythm, his EKG at that time shows a sinus rhythm with a right bundle branch block pattern and nonspecific ST-T wave changes. Heart rate this morning in the 60s to 70s. Blood pressure 128/60, afebrile, 94% on room air. White blood cell count 7.9, hemoglobin 15.5, platelet count 237. Sodium 139, potassium 4.0, BUN 13, creatinine 0.9, magnesium 2.2. Troponins are negative 3. TSH level 3.8. Cholesterol 197, LDL 140, HDL 40, triglycerides 83. Patient's home medications include Xarelto 10 mg daily, according to the patient Dr. Foster had just recently decreased it from 20 mg, Singulair 10 mg daily, Xyzal, Celexa, and Ventolin inhaler. At the time of my examination this morning, patient feels well, no complaints. Past Medical History Past Medical History: Cancer, COPD, GERD/Reflux, Pneumonia, Pulmonary Embolus (PE) Additional Past Medical History / Comment(s): IBS, hx kidney stones, hx basal cell skin cancer,rectal cancer Dx January-last chemo/radiation 04-17-16, HAS OSTOMY History of Any Multi-Drug Resistant Organisms: None Reported Past Surgical History: Bowel Resection, Joint Replacement, Orthopedic Surgery Additional Past Surgical History / Comment(s): fx left tibia/fibula repair with 19 screws and 2 plates, fx lt femur repair with plate and 3 screws, removal of skin cancer, yusuf. cataract surgery. DEV. SEPTUM SX, COLONOSCOPY, RT PARTIAL HIP REPLACEMENT 04/17/19, OSTOMY Past Anesthesia/Blood Transfusion Reactions: No Reported Reaction Past Psychological History: Anxiety, Depression Smoking Status: Former smoker Past Alcohol Use History: None Reported Additional Past Alcohol Use History / Comment(s): quit 1984 Past Drug Use History: None Reported - Past Family History Mother Family Medical History: No Reported History Additional Family Medical History / Comment(s): alcoholism, at age 54 Father History Unknown: Yes Brother(s) Additional Family Medical History / Comment(s): heart problems-5 stents Medications and Allergies Home Medications Medication Instructions Recorded Confirmed Type Acetaminophen [Tylenol 8 Hour] 1,300 mg PO Q8H PRN 12/22/17 12/20/19 History Montelukast [Singulair] 10 mg PO HS 12/22/17 12/20/19 History Umeclidinium Brm/Vilanterol Tr 1 puff INHALATION RT-DAILY 12/22/17 12/20/19 History [Anoro Ellipta 62.5-25 Mcg INH] Albuterol Inhaler [Ventolin Hfa 1 - 2 puff INHALATION RT-Q6H PRN 04/15/19 12/20/19 History Inhaler] Levocetirizine Dihydrochloride 5 mg PO DAILY 04/15/19 12/20/19 History [Xyzal] Citalopram Hydrobromide [CeleXA] 20 mg PO DAILY 12/20/19 12/20/19 History Rivaroxaban [Xarelto] 10 mg PO DAILY 12/20/19 12/20/19 History Allergies Allergy/AdvReac Type Severity Reaction Status Date / Time No Known Allergies Allergy Verified 12/20/19 18:57 Physical Exam Vitals: Vital Signs Temp Pulse Pulse Resp BP BP Pulse Ox 12/21/19 04:54 97.7 F 71 18 129/61 94 L 12/20/19 23:12 97.4 F L 62 16 107/54 92 L 12/20/19 21:16 98.4 F 96 18 126/61 96 12/20/19 20:26 96.8 F L 53 L 18 117/73 97 12/20/19 18:38 62 18 156/81 98 12/20/19 17:15 86 18 12/20/19 16:39 97.9 F 142 H 18 137/83 97 Intake and Output 12/20/19 12/21/19 12/21/19 22:59 06:59 14:59 Intake Total 600 Output Total 150 Balance 600 -150 Intake: Intake, IV Titration 400 Amount Sodium Chloride 0.9% 1, 400 000 ml @ 999 mls/hr IV . Q1H1M STA Rx#:[id number] Oral 200 Output: Urine 150 Other: # Voids 1 # Bowel Movements 1 Weight 79.2 kg 79.3 kg PHYSICAL EXAMINATION: GENERAL: 84-year-old gentleman in no acute distress at the time of my examination HEENT: Head is atraumatic, normocephalic. Pupils equal, round. Sclera anicteric. Conjunctiva are clear. Mucous membranes of the mouth are moist. Neck is supple. There is no elevated jugular venous pressure. No carotid bruit is heard. HEART EXAMINATION: Heart S1, S2 normal. No murmur or gallop heard. CHEST EXAMINATION: Lungs are clear to auscultation and precussion. No chest wall tenderness is noted on palpation or with deep breathing. ABDOMEN: Soft, nontender. Bowel sounds are heard. No organomegaly noted. EXTREMITIES: 2+ peripheral pulses with no evidence of peripheral edema and no calf tenderness noted. NEUROLOGIC patient is awake, alert and oriented 3 . Results 12/20/19 17:37 12/20/19 17:37 Cardiac Enzymes 12/20/19 12/20/19 12/20/19 Range/Units 17:37 17:37 23:27 AST 17 (17-59) U/L Troponin I <0.012 <0.012 (0.000-0.034) ng/mL 12/21/19 Range/Units 05:26 AST (17-59) U/L Troponin I <0.012 (0.000-0.034) ng/mL Coagulation 12/20/19 Range/Units 17:37 PT 10.4 (9.0-12.0) sec APTT 27.5 (22.0-30.0) sec Lipids 12/21/19 Range/Units 05:26 Triglycerides 83 (<150) mg/dL Cholesterol 197 (<200) mg/dL HDL Cholesterol 40 (40-60) mg/dL CBC 12/20/19 Range/Units 17:37 WBC 7.9 (3.8-10.6) k/uL RBC 4.95 (4.30-5.90) m/uL Hgb 15.5 (13.0-17.5) gm/dL Hct 47.6 (39.0-53.0) % Plt Count 237 (150-450) k/uL Comprehensive Metabolic Panel 12/20/19 Range/Units 17:37 Sodium 139 (137-145) mmol/L Potassium 4.0 (3.5-5.1) mmol/L Chloride 107 (98-107) mmol/L Carbon Dioxide 24 (22-30) mmol/L BUN 13 (9-20) mg/dL Creatinine 0.99 (0.66-1.25) mg/dL Glucose 101 H (74-99) mg/dL Calcium 9.4 (8.4-10.2) mg/dL AST 17 (17-59) U/L ALT 14 (4-49) U/L Alkaline Phosphatase 66 (38-126) U/L Total Protein 6.1 L (6.3-8.2) g/dL Albumin 3.7 (3.5-5.0) g/dL Current Medications Generic Name Dose Route Start Last Admin Trade Name Freq PRN Reason Stop Dose Admin Aspirin 325 mg 12/21/19 09:00 Aspirin PO DAILY MARIXA Nitroglycerin 0.4 mg 12/20/19 18:30 Nitrostat SUBLINGUAL Q5M PRN Chest Pain Intake and Output 12/20/19 12/21/19 12/21/19 22:59 06:59 14:59 Intake Total 600 Output Total 150 Balance 600 -150 Intake: Intake, IV Titration 400 Amount Sodium Chloride 0.9% 1, 400 000 ml @ 999 mls/hr IV . Q1H1M STA Rx#:[id number] Oral 200 Output: Urine 150 Other: # Voids 1 # Bowel Movements 1 Weight 79.2 kg 79.3 kg 12/20/19 17:37 12/20/19 17:37 EKG Interpretations (text) Initial EKG showed atrial fibrillation with rapid ventricular response, left axis deviation and right bundle branch block pattern. Subsequent EKG shows a normal sinus rhythm with right bundle branch block pattern, left axis deviation and nonspecific ST-T wave changes. Assessment and Plan Plan: Assessment and plan #1 atrial fibrillation with rapid ventricular response, paroxysmal, patient currently in normal sinus rhythm. He does have evidence of left axis deviation and right bundle branch block pattern #2 cardiac risk factors negative for hypertension, no diabetes, no h yperlipidemia. #3 history of smoking, patient quit smoking in the 80s #4 history of colon cancer with prior surgery #5 COPD #6 history of multiple orthopedic surgeries, possibly secondary to osteoporosis #7 multiple recurrent pulmonary embolism Plan TSH level is normal, we will obtain an echocardiogram with Doppler study. We will also increase the dose of Xarelto 20 mg daily. Patient spontaneously converted to normal sinus rhythm, we will defer on initiating any beta jennie at this time because of bradycardia and evidence of a right bundle branch block pattern with left axis deviation. I had a lengthy discussion with the patient and his daughter regarding the importance of appropriate anticoagulation for stroke prevention. We also discussed the fact that patient came in with Domingo sotelo with RVR and now in normal sinus rhythm is at times bradycardic. Patient may down the road require implantation of a permanent pacemaker, at this time his heart rate is maintained in the 60s to 70s. Discontinue aspirin. Further recommendations to follow. DNP note has been reviewed, I agree with a documented findings and plan of care. Patient was seen and examined.
[2019-12-21] MEDS ORDERED: ASPIRIN 325 MG TAB PO SCH (09:00)
[2019-12-21] MEDS ORDERED: RIVAROXABAN 20 MG TAB PO SCH ×2 (09:25→17:30)
[2019-12-21] MEDS ORDERED: CITALOPRAM HYDROBROMIDE 20 MG TAB PO SCH (09:30)
[2019-12-21] MEDS ORDERED: ACETAMINOPHEN TAB 500 MG TAB PO PRN (10:58)
--- NOTE | 2019-12-21 11:00 | ECHOF ---
Referral Reason:newAfib MEASUREMENTS -------- HEIGHT: 170.2 cm WEIGHT: 78.9 kg BP: RVIDd: 3.0 cm (< 3.3) IVSd: 1.0 cm (0.6 - 1.1) LVIDd: 4.8 cm (3.9 - 5.3) LVPWd: 1.2 cm (0.6 - 1.1) IVSs: 1.9 cm LVIDs: 2.7 cm LVPWs: 1.8 cm LAESV Index (A-L): 34.52 ml/m IVSd: 1.0 cm (0.6 - 1.1) LVIDd: 4.6 cm (3.9 - 5.3) LVPWd: 1.4 cm (0.6 - 1.1) IVSs: 1.2 cm LVIDs: 2.9 cm LVPWs: 1.7 cm EDV(Teich): 96 ml ESV(Teich): 32 ml EF(Teich): 67 % %FS: 37 % SV(Teich): 65 ml Ao Diam: 3.0 cm (2.0 - 3.7) AV Cusp: 1.9 cm (1.5 - 2.6) LA Diam: 3.6 cm (2.7 - 3.8) MV EXCURSION: 17.701 mm (> 18.000) MV EF SLOPE: 58 mm/s (70 - 150) EPSS: 2.8 cm MV E Ned: 0.67 m/s MV DecT: 222 ms MV A Ned: 0.73 m/s MV E/A Ratio: 0.91 RAP: 5.00 mmHg RVSP: 14.31 mmHg FINDINGS -------- Sinus rhythm. This was a technically good study. The left ventricular size is normal. Left ventricular wall thickness is normal. Overall left vent ricular systolic function is low-normal with, an EF between 50 - 55 %. The right ventricle is normal in size. LA is moderately dilated 34-39 ml/m2 The right atrial size is normal. The aortic valve is trileaflet and appears structurally normal. The mitral valve is normal. The mitral valve leaflets are mildly thickened. Mild mitral regurgita tion is present. The tricuspid valve appears structurally normal. Mild tricuspid regurgitation present. Right vent ricular systolic pressure is normal at < 35 mmHg. There is no pulmonic regurgitation present. The aortic root size is normal. IVC Not well visulized. There is no pericardial effusion. CONCLUSIONS -------- 1. Sinus rhythm. 2. This was a technically good study. 3. The left ventricular size is normal. 4. Left ventricular wall thickness is normal. 5. Overall left ventricular systolic function is low-normal with, an EF between 50 - 55 %. 6. The right ventricle is normal in size. 7. LA is moderately dilated 34-39 ml/m2 8. The right atrial size is normal. 9. The aortic valve is trileaflet and appears structurally normal. 10. The mitral valve is normal. 11. The mitral valve leaflets are mildly thickened. 12. Mild mitral regurgitation is present. 13. The tricuspid valve appears structurally normal. 14. Mild tricuspid regurgitation present. 15. Right ventricular systolic pressure is normal at < 35 mmHg. 16. There is no pulmonic regurgitation present. 17. The aortic root size is normal. 18. IVC Not well visulized. 19. There is no pericardial effusion. RANCH HELPER: Gillian Ortega RDCS
[2019-12-21] MEDS: IPRATROPIUM 0.5 MG/2.5 ML NEBU INHALATION SCH ×2 (11:14→15:50)
[2019-12-21] MEDS ORDERED: LORATADINE 10 MG TAB PO SCH (11:15)
[2019-12-21 11:46] VITALS: BP 134/65; TEMP 98
[2019-12-21 15:53] VITALS: PULSE 56
[2019-12-21] MEDS ORDERED: MONTELUKAST 10 MG TAB PO SCH (21:00)
--- NOTE | 2019-12-22 00:20 | P.HPIM ---
History of Present Illness H&P Date: 12/21/19 Chief Complaint: Feeling unwell History of presenting complaint: This is a very pleasant [address] Schmid. Chronic stable medical conditions include COPD, GERD, irritable bowel syndrome, anxiety, depression, bilateral pulmonary embolism in 2018 for which she is chronically as well too. Also history of rectal cancer that was treated with AP resection fol lowed by chemoradiation in 2015 with a resultant colostomy. Patient had been feeling unwell at home and he has an apple watch. Decided to locate his rhythm. For his heart rate to be greatly elevated in irregular. Patient is found to be in atrial flutter with a rapid ventricular rate of about 135 the ER. Subsequently the patient converted to sinus rhythm. Patient is orally answered all toe. Started feeling better. Review of systems: GEN.: Tired EYES: None HEENT: Decreased hearing NECK: None RESPIRATORY: None CARDIOVASCULAR: None GASTROINTESTINAL: None GENITOURINARY: None MUSCULOSKELETAL: Joint pains LYMPHATICS: None HEMATOLOGICAL: None PSYCHIATRY: None NEUROLOGICAL: None Past medical history to include: COPD, GERD, and embolism in 2017 recurrent, irritable bowel syndrome, kidney stone, basal cell skin cancer, rectal cancer treated with AP resection and chemoradiation in 2063 by chronic colostomy Social history: Stopped smoking in 1984. Lives alone. Does use a cane. No alcohol. Family history: Reviewed, noncontributory to presentation Physical examination: VITAL SIGNS: 97.9, 142, 18, 137/83, 97% room air GENERAL: BMI 27.4, sitting up in bed comfortable awake. EYES: Pupils equal. Conjunctiva normal. HEENT: External appearance of nose and ears normal, oral cavity grossly normal. NECK: JVD not raised; masses not palpable. HEART: First and second heart sounds are normal; no edema. LUNGS: Respiratory rate normal; clear to auscultation. ABDOMEN: Soft, nontender, liver spleen not palpable, no masses palpable colostomy bag. PSYCH: Alert and oriented x3; mood and affect normal. NEUROLOGICAL: Cranial nerves grossly intact; no facial asymmetry, power and sensation grossly intact. LYMPHATICS: No lymph nodes palpable in the axilla and neck INVESTIGATIONS, reviewed in the clinical context: White count 7.9 hemoglobin 15.5 potassium 4 creatinine 0.99 Troponin I 3 negative LDL 140 TSH 3.8 EKG tracing personally reviewed by vt-atrial flutter with a rate about 135 2-D echo EF 50-45% Assessment: -Paroxysmal atrial flutter with a rapid ventricular rate, reverted back to sinus rhythm -COPD in an ex-smoker -GERD -Irritable bowel syndrome -Chronic parastomal hernia -History of rectal cancer followed by chemoradiation resulting colostomy -Chronic bilateral pulmonary embolism for which patient chronically on xarelto Plan: Continue home medications. Patient did revert into that sinus rhythm. Does of Xarelto was increased. 2-D echocardiogram was ordered as above. Encouraged to ambulate the hallway. Past Medical History Past Medical History: Cancer, COPD, GERD/Reflux, Pneumonia, Pulmonary Embolus (PE) Additional Past Medical History / Comment(s): IBS, hx kidney stones, hx basal cell skin cancer,rectal cancer Dx January-last chemo/radiation 04-17-16, HAS OSTOMY History of Any Multi-Drug Resistant Organisms: None Reported Past Surgical History: Bowel Resection, Joint Replacement, Orthopedic Surgery Additional Past Surgical History / Comment(s): fx left tibia/fibula repair with 19 screws and 2 plates, fx lt femur repair with plate and 3 screws, removal of skin cancer, yusuf. cataract surgery. DEV. SEPTUM SX, COLONOSCOPY, RT PARTIAL HIP REPLACEMENT 04/17/19, OSTOMY Past Anesthesia/Blood Transfusion Reactions: No Reported Reaction Past Psychological History: Anxiety, Depression Smoking Status: Former smoker Past Alcohol Use History: None Reported Additional Past Alcohol Use History / Comment(s): quit 1984 Past Drug Use History: None Reported - Past Family History Mother Family Medical History: No Reported History Additional Family Medical History / Comment(s): alcoholism, at age 54 Father History Unknown: Yes Brother(s) Additional Family Medical History / Comment(s): heart problems-5 stents Medications and Allergies Home Medications Medication Instructions Recorded Confirmed Type Acetaminophen [Tylenol 8 Hour] 1,300 mg PO Q8H PRN 12/22/17 12/20/19 History Montelukast [Singulair] 10 mg PO HS 12/22/17 12/20/19 History Umeclidinium Brm/Vilanterol Tr 1 puff INHALATION RT-DAILY 12/22/17 12/20/19 History [Anoro Ellipta 62.5-25 Mcg INH] Albuterol Inhaler [Ventolin Hfa 1 - 2 puff INHALATION RT-Q6H PRN 04/15/19 12/20/19 History Inhaler] Levocetirizine Dihydrochloride 5 mg PO DAILY 04/15/19 12/20/19 History [Xyzal] Citalopram Hydrobromide [CeleXA] 20 mg PO DAILY 12/20/19 12/20/19 History Rivaroxaban [Xarelto] 20 mg PO DAILY #30 tab 12/21/19 Rx Allergies Allergy/AdvReac Type Severity Reaction Status Date / Time No Known Allergies Allergy Verified 12/20/19 18:57 Physical Exam Vitals: Vital Signs Temp Pulse Pulse Resp BP BP Pulse Ox 12/21/19 08:00 97.6 F 64 18 126/63 93 L 12/21/19 04:54 97.7 F 71 18 129/61 94 L 12/20/19 23:12 97.4 F L 62 16 107/54 92 L 12/20/19 21:16 98.4 F 96 18 126/61 96 12/20/19 20:26 96.8 F L 53 L 18 117/73 97 12/20/19 18:38 62 18 156/81 98 12/20/19 17:15 86 18 12/20/19 16:39 97.9 F 142 H 18 137/83 97 Intake and Output 12/20/19 12/21/19 12/21/19 22:59 06:59 14:59 Intake Total 600 240 Output Total 150 Balance 600 90 Intake: Intake, IV Titration 400 Amount Sodium Chloride 0.9% 1, 400 000 ml @ 999 mls/hr IV . Q1H1M STA Rx#:[id number] Oral 200 240 Output: Urine 150 Other: # Voids 1 # Bowel Movements 1 Weight 79.2 kg 79.3 kg Results CBC & Chem 7: 12/20/19 17:37 12/20/19 17:37 Labs: Abnormal Lab Results - Last 24 Hours (Table) 12/20/19 12/20/19 12/21/19 Range/Units 17:37 17:37 05:26 Lymphocytes # 0.9 L (1.0-4.8) k/uL Glucose 101 H (74-99) mg/dL Total Protein 6.1 L (6.3-8.2) g/dL LDL Cholesterol, Calc 140 H (0-99) mg/dL Thrombosis Risk Factor Assmnt - Choose All That Apply Any of the Below Risk Factors Present?: Yes Each Factor Represents 1 point: Abnormal pulmonary function (COPD) Other Risk Factors: Yes Each Risk Factor Represents 3 Points: Age 75 years or older, History of DVT/PE Other congenital or acquired thrombophilia - If yes, enter type in comment: No Thrombosis Risk Factor Assessment Total Risk Factor Score: 7 Thrombosis Risk Factor Assessment Level: High Risk
--- NOTE | 2019-12-22 00:22 | P.DS ---
Providers Date of admission: 12/20/19 18:30 Expected date of discharge: 12/22/19 Attending physician: Lalito Otoole Consults: 12/20/19 18:30 Consult Physician Urgent Consulting Provider: Vince Cárdenas Consult Reason/Comments: afib Do you want consulting provider notified?: Yes Primary care physician: Solomon Schmid [facility] Hospital Course: Chief Complaint: Feeling unwell Hospital course: This is a very pleasant [address] Schmid. Chronic stable medical conditions include COPD, GERD, irritable bowel syndrome, anxiety, depression, bilateral pulmonary embolism in 2018 for which she is chronically as well too. Also history of rectal cancer that was treated with AP resection followed by chemoradiation in 2016 with a resultant colostomy. Patient had been feeling unwell at home and he has an apple watch. Decided to locate his rhythm. For his heart rate to be greatly elevated in irregular. Patient is found to be in atrial flutter with a rapid ventricular rate of about 135 the ER. Subsequently the patient converted to sinus rhythm. Does on Xarelto was increase. Patient that was baseline. Cleared by cardiology technologist: Dr. Mohsen Mohamud from cardiology . Physical examination: VITAL SIGNS: 98, 56, 18, 134/65, 96% room air GENERAL: BMI 27.4, sitting up in bed comfortable awake. EYES: Pupils equal. Conjunctiva normal. HEENT: External appearance of nose and ears normal, oral cavity grossly normal. NECK: JVD not raised; masses not palpable. HEART: First and second heart sounds are normal; no edema. LUNGS: Respiratory rate normal; clear to auscultation. ABDOMEN: Soft, nontender, liver spleen not palpable, no masses palpable colostomy bag. PSYCH: Alert and oriented x3; mood and affect normal. INVESTIGATIONS, reviewed in the clinical context: White count 7.9 hemoglobin 15.5 potassium 4 creatinine 0.99 Troponin I 3 negative LDL 140 TSH 3.8 EKG tracing personally reviewed by me-atrial flutter with a rate about 135 2-D echo EF 50-45% Assessment: -Paroxysmal atrial flutter with a rapid ventricular rate, reverted back to sinus rhythm -COPD in an ex-smoker -GERD -Irritable bowel syndrome -Chronic parastomal hernia -History of rectal cancer followed by chemoradiation resulting colostomy -Chronic bilateral pulmonary embolism for which patient chronically on xarelto Disposition: Home Patient Condition at Discharge: Good Plan - Discharge Summary New Discharge Prescriptions: New Rivaroxaban [Xarelto] 20 mg PO DAILY #30 tab Continue Umeclidinium Brm/Vilanterol Tr [Anoro Ellipta 62.5-25 Mcg INH] 1 puff INHALATION RT-DAILY Montelukast [Singulair] 10 mg PO HS Acetaminophen [Tylenol 8 Hour] 1,300 mg PO Q8H PRN PRN Reason: Pain Albuterol Inhaler [Ventolin Hfa Inhaler] 1 - 2 puff INHALATION RT-Q6H PRN PRN Reason: Shortness Of Breath Levocetirizine Dihydrochloride [Xyzal] 5 mg PO DAILY Citalopram Hydrobromide [CeleXA] 20 mg PO DAILY Discontinued Rivaroxaban [Xarelto] 10 mg PO DAILY Discharge Medication List Acetaminophen [Tylenol 8 Hour] 1,300 mg PO Q8H PRN 12/22/17 [History] Montelukast [Singulair] 10 mg PO HS 12/22/17 [History] Umeclidinium Brm/Vilanterol Tr [Anoro Ellipta 62.5-25 Mcg INH] 1 puff INHALATION RT-DAILY 12/22/17 [History] Albuterol Inhaler [Ventolin Hfa Inhaler] 1 - 2 puff INHALATION RT-Q6H PRN 04/15/19 [History] Levocetirizine Dihydrochloride [Xyzal] 5 mg PO DAILY 04/15/19 [History] Citalopram Hydrobromide [CeleXA] 20 mg PO DAILY 12/20/19 [History] Rivaroxaban [Xarelto] 20 mg PO DAILY #30 tab 12/21/19 [Rx] Follow up Appointment(s)/Referral(s): Solomon Schmid DO [Primary Care Provider] - 12/27/19 9:40 am (Friday -previously scheduled appointment) Jose Carlos Mohamud MD [STAFF PHYSICIAN] - 12/28/19 2:45 pm (Friday) Patient Instructions/Handouts: A-fib (Atrial Fibrillation) (DC), Safe Use of Anticoagulants (DC) Discharge Disposition: HOME SELF-CARE
--- NOTE | 2020-01-24 08:45 | CDI ---
Documentation Clarification Form From: RENETTA Andre; Taylor Cho, Industrial/Organizational Psychologist Phone: If you have any questions about this query, please contact Taylor Cho at between 8 am and 5 pm. Admit Date: 12/20/2019 Patient Name: Jack Blanchard Visit Number: [id number] Discharge Date: 12/21/[address] Otoole, The patient presented to the ED with shortness of breath, irregular heart rate and palpitation. ED physician documents patient is in atrial fibrillation RVR. Consulting physician documents patient is in atrial fibrillation with RVR. The H&P and DS both document atrial flutter without mention of atrial fibrillation. History and risk factors: COPD, history of PE, GERD, IBS, anxiety and depression. Treatment: Xarelto In order to accurately reflect the reason for this patients admission to observation, would you please clarify if you are treating? Atrial Flutter Atrial Fibrillation with RVR Other Undetermined Please document in your progress notes and discharge summary in order to capture severity of illness and risk of mortality. Include clinical findings that support your diagnosis. Place X here if this finding has no clinical significance, is not applicable or if you are not able to provide any additional documentation Atrial flutter MTDD
== END 2019-12-21 16:38 | disposition home or self-care (01) ==
LOC: EC 16:33 → 3SCARD 18:30 → INTOOBSV 18:30 → 3SCARD 20:17
PROVIDERS: ADMIT Hospitalist; ATTEND Hospitalist
DX: I48.92 Unspecified atrial flutter (principal); R61 Generalized hyperhidrosis; R06.02 Shortness of breath; R53.1 Weakness; F32.9 Major depressive disorder, single episode, unspecified; F41.9 Anxiety disorder, unspecified; I27.82 Chronic pulmonary embolism; Z79.01 Long term (current) use of anticoagulants; I45.10 Unspecified right bundle-branch block; I48.91 Unspecified atrial fibrillation; J44.9 Chronic obstructive pulmonary disease, unspecified; K21.9 Gastro-esophageal reflux disease without esophagitis; K43.5 Parastomal hernia without obstruction or gangrene; K58.9 Irritable bowel syndrome, unspecified; Z79.899 Other long term (current) drug therapy; Z85.048 Personal history of other malignant neoplasm of rectum, rectosigmoid junction, and anus; Z85.828 Personal history of other malignant neoplasm of skin; Z87.442 Personal history of urinary calculi; Z87.891 Personal history of nicotine dependence; Z92.21 Personal history of antineoplastic chemotherapy; Z92.3 Personal history of irradiation; Z93.3 Colostomy status; Z87.01 Personal history of pneumonia (recurrent); Z90.49 Acquired absence of other specified parts of digestive tract; Z98.42 Cataract extraction status, left eye; Z98.41 Cataract extraction status, right eye; Z96.641 Presence of right artificial hip joint; R42 Dizziness and giddiness; Z60.2 Problems related to living alone
CPT/HCPCS: 96360; 93005 ×2; 99285; 36415; 94640 ×2; 93306; 83880; 80061; 80053; 82550; 83735; 84100; 84443; 84484 ×2; 85025; 85610; 85730; G0378

== ENCOUNTER → 2020-07-12 | Outpatient (CLI) | payer MEDICARE, OTHER ==
--- NOTE | 2020-07-12 12:47 | CT ---
EXAMINATION TYPE: CT ChestAbdPelvis w con DATE OF EXAM: 07/12/2020 COMPARISON: 04/15/2019 HISTORY: Follow up rectal cancer CT DLP: 1282 mGycm CONTRAST: CT scan of the chest, abdomen and pelvis is performed with Oral Contrast and with IV Contrast, patien t injected with 80 mL of Isovue 300. CT Chest: LUNGS: Moderately severe emphysematous changes with upper lobe bulla noted. Scattered areas of linear parenchymal scarring. No evidence for pulmonary nodule or mass. No infiltrate or pleural effusion. MEDIASTINUM: Thoracic aorta is of normal caliber. The heart is not enlarged. No evidence for media stinal mass or adenopathy. HILAR STRUCTURES: No evidence for mass. No hilar adenopathy is appreciated. OTHER: No significant abnormality. CONTRAST CT ABDOMEN AND PELVIS FINDINGS: LIVER/GB: No calcified gallstones. Mild hepatic steatosis. Stable cyst within the dome of the live r. Additional subcentimeter hypoattenuating lesion near the caudate lobe is stable. No space occupyin g hepatic lesion. Biliary tree is of normal caliber. PANCREAS: No inflammation. No distinct mass. SPLEEN: No splenic enlargement. No lesion seen. ADRENALS: No nodule. No thickening. KIDNEYS/BLADDER: No hydronephrosis. Stable nonobstructing calculus mid to lower pole left kidney.. No distinct renal mass. Elongation of the urinary bladder likely secondary to prior treatment change. BOWEL: Normal appendix. Stable left mid abdomen ostomy with parastomal hernia containing several segm ents of small bowel. No evidence for incarceration. Overall appearance is stable. No obstructive singleton ges seen. Presacral stranding likely sequela of treatment. GENITAL ORGANS: No gross abnormality. LYMPH NODES: No greater than 1cm abdominal or pelvic lymph nodes are appreciated. AORTA: No significant abnormality. OSSEOUS STRUCTURES: Vacuum changes lumbar spine. Bilateral hip prostheses in place. OTHER: No significant additional abnormality is seen. IMPRESSION: 1. No evidence for metastatic disease at this time. 2. Fatty liver with stable cystic lesions of the liver. 3. Stable left parastomal hernia 4. Postsurgical changes of the pelvis.
== END | disposition home or self-care (01) ==
LOC: RADCTMAIN 10:04
PROVIDERS: ATTEND Internal Medicine Hematology & Oncology
DX: K76.0 Fatty (change of) liver, not elsewhere classified (principal); K43.5 Parastomal hernia without obstruction or gangrene; K76.89 Other specified diseases of liver; C20 Malignant neoplasm of rectum; Z98.890 Other specified postprocedural states
CPT/HCPCS: 82565; 84520; 71260; 74177; 36415; Q9967

== ENCOUNTER 2021-08-22 12:27 | Emergency (ER) | payer MEDICARE, OTHER ==
[2021-08-22 12:41] VITALS: RESP 16; TEMP 98.5
[2021-08-22 13:25] LABS: Appearance,Urine Cloudy (Clear); Bacteria,Urine Rare /hpf; Bilirubin,Urine Negative (Negative); Blood,Urine Large (Negative); Color,Urine Light Red; Glucose,Urine (UA) Negative (Negative); Ketones,Urine Negative (Negative); Leukocyte Esterase,Urine Moderate (Negative); Nitrite,Urine Negative (Negative); PH, Urine 5.5 (5.0-8.0); Protein,Urine 1+ (Negative); RBC,Urine >182 /hpf (0-5); Specific Gravity,Urine 1.013 (1.001-1.035); Urobilinogen,Urine <2.0 mg/dL (<2.0); WBC,Urine 33 /hpf (0-5)
--- NOTE | 2021-08-22 15:09 | XR ---
EXAMINATION TYPE: XR KUB DATE OF EXAM: 08/22/2021 COMPARISON: None INDICATION: Hematuria TECHNIQUE: Single view abdomen upright view FINDINGS: There is a normal bowel gas pattern. Psoas margins are normal. No organomegaly is present. There is a 0.7 cm calcification over the mid to inferior pole left kidney. There is a left hip pain. Right hip prosthesis is present. IMPRESSION: 1. Left renal calcification.
--- NOTE | 2021-08-22 15:18 | ED ---
General Adult HPI - General Chief complaint: Recheck/Abnormal Lab/Rx Stated complaint: Possible UTI Time Seen by Provider: 08/22/21 14:14 Source: patient, RN notes reviewed Mode of arrival: ambulatory Limitations: no limitations - History of Present Illness Initial comments: Patient is a 6-year-old male that presents emergency department with an episode of hematuria this morning. He notes he does have a history of kidney stones but has not had one in a while. He denied any dysuria frequency or other urinary symptoms. He notes that he is fine and has no pain. He decided come in because he is on blood thinner and was concerned. He did note that he saw his primary care who noted that he needs follow-up for prostate issues in 6 months. Patient was otherwise well-appearing. 90 chest pain first breath headache nausea vomiting diarrhea constipation fever fatigue chills. - Related Data Home Medications Medication Instructions Recorded Confirmed Acetaminophen [Tylenol 8 Hour] 1,300 mg PO Q8H PRN 12/22/17 12/20/19 Montelukast [Singulair] 10 mg PO HS 12/22/17 12/20/19 Umeclidinium Brm/Vilanterol Tr 1 puff INHALATION RT-DAILY 12/22/17 12/20/19 [Anoro Ellipta 62.5-25 Mcg INH] Albuterol Inhaler (Mhu) [Ventolin 1 - 2 puff INHALATION RT-Q6H PRN 04/15/19 12/20/19 Hfa Inhaler (Mhu)] Levocetirizine Dihydrochloride 5 mg PO DAILY 04/15/19 12/20/19 [Xyzal] Citalopram Hydrobromide [CeleXA] 20 mg PO DAILY 12/20/19 12/20/19 Previous Rx's Medication Instructions Recorded Rivaroxaban [Xarelto] 20 mg PO DAILY #30 tab 12/21/19 Cephalexin [Keflex] 500 mg PO Q6HR #40 cap 08/22/21 Ketorolac [Toradol] 10 mg PO Q8HR #15 tab 08/22/21 Tamsulosin [Flomax] 0.4 mg PO DAILY #7 cap 08/22/21 Allergies Allergy/AdvReac Type Severity Reaction Status Date / Time No Known Allergies Allergy Verified 08/22/21 12:41 Review of Systems ROS Statement: Those systems with pertinent positive or pertinent negative responses have been documented in the HPI. ROS Other: All systems not noted in ROS Statement are negative. Past Medical History Past Medical History: Cancer, COPD, GERD/Reflux, Pneumonia, Pulmonary Embolus (PE) Additional Past Medical History / Comment(s): IBS, hx kidney stones, hx basal cell skin cancer,rectal cancer Dx January-last chemo/radiation 04-17-16, HAS OSTOMY History of Any Multi-Drug Resistant Organisms: None Reported Past Surgical History: Bowel Resection, Joint Replacement, Orthopedic Surgery Additional Past Surgical History / Comment(s): fx left tibia/fibula repair with 19 screws and 2 plates, fx lt femur repair with plate and 3 screws, removal of skin cancer, yusuf. cataract surgery. DEV. SEPTUM SX, COLONOSCOPY, RT PARTIAL HIP REPLACEMENT 04/17/19, OSTOMY Past Anesthesia/Blood Transfusion Reactions: No Reported Reaction Past Psychological History: Anxiety, Depression Smoking Status: Never smoker Past Alcohol Use History: None Reported Past Drug Use History: None Reported - Past Family History Mother Family Medical History: No Reported History Additional Family Medical History / Comment(s): alcoholism, at age 54 Father History Unknown: Yes Brother(s) Additional Family Medical History / Comment(s): heart problems-5 stents General Exam Limitations: no limitations General appearance: alert, in no apparent distress, other (A she does have a colostomy) Head exam: Present: atraumatic, normocephalic, normal inspection Eye exam: Present: normal appearance, PERRL, EOMI. Absent: scleral icterus, conjunctival injection, periorbital swelling ENT exam: Present: normal exam, mucous membranes moist Neck exam: Present: normal inspection Respiratory exam: Present: normal lung sounds bilaterally. Absent: respiratory distress, wheezes, rales, rhonchi, stridor Cardiovascular Exam: Present: regular rate, normal rhythm, normal heart sounds. Absent: systolic murmur, diastolic murmur, rubs, gallop, clicks GI/Abdominal exam: Present: soft, normal bowel sounds. Absent: distended, tenderness, guarding, rebound, rigid Extremities exam: Present: normal inspection, full ROM, normal capillary refill. Absent: tenderness, pedal edema, joint swelling, calf tenderness Neurological exam: Present: alert, oriented X3 Psychiatric exam: Present: normal affect, normal mood Skin exam: Present: warm, dry, intact, normal color. Absent: rash Course Vital Signs 08/22/21 12:39 Temperature 98.5 F Pulse Rate 74 Respiratory 16 Rate Blood Pressure 140/79 O2 Sat by Pulse 92 L Oximetry Medical Decision Making - Medical Decision Making 86 she'll male complaining of hematuria one episode this morning. Urinalysis, KUB ordered. Urinalysis shows any red blood cells and few white blood cells. KUB shows a left renal calculi. Patient be sent prescriptions pharmacy for kidney stone. Case discussed with Dr. Martines, patient discharge home with follow up primary care and urologist. - Lab Data Lab Results 08/22/21 Range/Units 12:57 Urine Color Light Red Urine Appearance Cloudy (Clear) Urine pH 5.5 (5.0-8.0) Ur Specific [place] 1.013 (1.001-1.035) Urine Protein 1+ H (Negative) Urine Glucose (UA) Negative (Negative) Urine Ketones Negative (Negative) Urine Blood Large H (Negative) Urine Nitrite Negative (Negative) Urine Bilirubin Negative (Negative) Urine Urobilinogen <2.0 (<2.0) mg/dL Ur Leukocyte Esterase Moderate H (Negative) Urine RBC >182 H (0-5) /hpf Urine WBC 33 H (0-5) /hpf Urine Bacteria Rare H (None) /hpf - Radiology Data Radiology results: report reviewed, image reviewed KUB: Left renal calcification Disposition Clinical Impression: Nephrolithiasis, Hematuria Disposition: HOME SELF-CARE Condition: Stable Instructions (If sedation given, give patient instructions): Kidney Stones (ED) Additional Instructions: Please return to the Emergency Department if symptoms worsen or any other co ncerns. Follow-up with primary care 1-2 days. Follow up with urologist as needed. Take medication as prescribed Is patient prescribed a controlled substance at d/c from ED?: No Referrals: Solomon Schmid DO [Primary Care Provider] - 1-2 days Silverio Martino MD [STAFF PHYSICIAN] - 1-2 days Time of Disposition: 15:18
[2021-08-22 15:36] VITALS: BP 134/77; PULSE 76
== END 2021-08-22 15:36 | disposition home or self-care (01) ==
LOC: EC 12:27
DX: N20.0 Calculus of kidney (principal); R31.9 Hematuria, unspecified; J44.9 Chronic obstructive pulmonary disease, unspecified; Z86.711 Personal history of pulmonary embolism; Z79.51 Long term (current) use of inhaled steroids
CPT/HCPCS: 74018; 81001; 87086; 99283

== ENCOUNTER 2021-12-24 18:23 | Emergency (ER) | payer MEDICARE, OTHER ==
[2021-12-24] MEDS ORDERED: DIAZEPAM 5 MG/ML 2 ML INJ IVP STA (18:29)
[2021-12-24] MEDS ORDERED: MECLIZINE 25 MG TAB PO STA (18:29)
[2021-12-24 18:30] VITALS: TEMP 97.8
[2021-12-24] MEDS ORDERED: SODIUM CHLORIDE 0.9% 500 ML 500 ML IV STA (18:30)
[2021-12-24] MEDS ORDERED: METOCLOPRAMIDE 5 MG/ML 2 ML VIAL IVP STA (18:31)
[2021-12-24 18:50] LABS: Basophils # (A) 0.1 k/uL (0-0.2); Basophils % (A) 1 %; Eosinophils # (A) 0.4 k/uL (0-0.7); Eosinophils % (A) 6 %; HCT 45.7 % (39.0-53.0); HGB 15.1 gm/dL (13.0-17.5); Lymphocytes # (A) 1.1 k/uL (1.0-4.8); Lymphocytes % (A) 15 %; MCH 32.7 pg (25.0-35.0); MCV 98.9 fL (80.0-100.0); Mean Platelet Volume 8.4; Monocytes # (A) 0.6 k/uL (0-1.0); Monocytes % (A) 8 %; Neutrophils # (A) 4.9 k/uL (1.3-7.7); Neutrophils % (A) 68 %; Platelet Count 223 k/uL (150-450); RBC 4.62 m/uL (4.30-5.90); RDW 12.1 % (11.5-15.5); WBC 7.2 k/uL (3.8-10.6)
--- NOTE | 2021-12-24 18:57 | ED ---
General Adult HPI - General Chief complaint: Nausea/Vomiting/Diarrhea Stated complaint: nausea, vomiting Time Seen by Provider: 12/24/21 18:25 Source: patient, EMS, RN notes reviewed, old records reviewed Mode of arrival: EMS Limitations: no limitations - History of Present Illness Initial comments: This is an 86-year-old male who presents emergency Department stating that after he was done eating he became very dizzy the room felt like it was moving. Patient states shortly after that that he felt like she had tinnitus in his right ear and began vomiting. Patient did not appreciate making the symptoms worse by movement. Patient states he still is mildly nauseated. Patient received Zofran the way in. Patient states she's had a history of tinnitus on and off but has not had the dizziness in the past. Patient denies any palpitations or chest pain. Patient denies any difficulty breathing shortness of breath per patient has abdominal pain. Patient denies any back pain. Patient denies any headache patient denies any numbness or weakness. - Related Data Home Medications Medication Instructions Recorded Confirmed Acetaminophen [Tylenol 8 Hour] 650 mg PO Q8H PRN 12/22/17 12/24/21 Montelukast [Singulair] 10 mg PO HS 12/22/17 12/24/21 Umeclidinium Brm/Vilanterol Tr 1 puff INHALATION RT-DAILY 12/22/17 12/24/21 [Anoro Ellipta 62.5-25 Mcg INH] Levocetirizine Dihydrochloride 5 mg PO DAILY 04/15/19 12/24/21 [Xyzal] Citalopram Hydrobromide [CeleXA] 20 mg PO DAILY 12/20/19 12/24/21 Previous Rx's Medication Instructions Recorded Rivaroxaban [Xarelto] 20 mg PO DAILY #30 tab 12/21/19 Meclizine [Antivert] 25 mg PO TID #20 tab 12/24/21 Allergies Allergy/AdvReac Type Severity Reaction Status Date / Time No Known Allergies Allergy Verified 12/24/21 20:34 Review of Systems ROS Statement: Those systems with pertinent positive or pertinent negative responses have been documented in the HPI. ROS Other: All systems not noted in ROS Statement are negative. Past Medical History Past Medical History: Atrial Fibrillation, Cancer, COPD, GERD/Reflux, Pneumonia, Pulmonary Embolus (PE) Additional Past Medical History / Comment(s): IBS, hx kidney stones, hx basal cell skin cancer,rectal cancer Dx January-last chemo/radiation 04-17-16, HAS OSTOMY History of Any Multi-Drug Resistant Organisms: None Reported Past Surgical History: Bowel Resection, Joint Replacement, Orthopedic Surgery Additional Past Surgical History / Comment(s): fx left tibia/fibula repair with 19 screws and 2 plates, fx lt femur repair with plate and 3 screws, removal of skin cancer, yusuf. cataract surgery. DEV. SEPTUM SX, COLONOSCOPY, RT PARTIAL HIP REPLACEMENT 04/17/19, OSTOMY Past Anesthesia/Blood Transfusion Reactions: No Reported Reaction Past Psychological History: Anxiety, Depression Smoking Status: Never smoker Past Alcohol Use History: None Reported Past Drug Use History: None Reported - Past Family History Mother Family Medical History: No Reported History Additional Family Medical History / Comment(s): alcoholism, at age 54 Father History Unknown: Yes Brother(s) Additional Family Medical History / Comment(s): heart problems-5 stents General Exam - General Exam Comments Initial Comments: GENERAL: Patient is well-developed and well-nourished. Patient is nontoxic and well- hydrated and is in mild distress. ENT: Neck is soft and supple. No significant lymphadenopathy is noted. Oropharynx is clear. Moist mucous membranes. Neck has full range of motion without e liciting any pain. EYES: The sclera were anicteric and conjunctiva were pink and moist. Extraocular movements were intact and pupils were equal round and reactive to light. Eyelids were unremarkable. PULMONARY: Unlabored respirations. Good breath sounds bilaterally. No audible rales rhonchi or wheezing was noted. CARDIOVASCULAR: There is a regular rate and rhythm without any murmurs gallops or rubs. ABDOMEN: Soft and nontender with normal bowel sounds. SKIN: Skin is clear with no lesions or rashes and otherwise unremarkable. NEUROLOGIC: Patient is alert and oriented x3. Cranial nerves II through XII are grossly intact. Motor and sensory are also intact. Normal speech, volume and content. Symmetrical smile. Finger to nose testing bilaterally was normal MUSCULOSKELETAL: Normal extremities with adequate strength and full range of motion. LYMPHATICS: No significant lymphadenopathy is noted PSYCHIATRIC: Normal psychiatric evaluation. Limitations: no limitations Course Vital Signs 12/24/21 12/24/21 18:24 20:30 Temperature 97.8 F Pulse Rate 59 L 56 L Respiratory 18 20 Rate Blood Pressure 165/76 123/66 O2 Sat by Pulse 92 L 93 L Oximetry Medical Decision Making - Medical Decision Making EKG shows sinus bradycardia 57 bpm UT interval 288 QRSs 105 Q-T intervals 493 QTC is 487. Patient's right bundle branch block. CT of the brain shows no acute abnormality. Chest x-ray shows no acute abnormality - Lab Data Result diagrams: 12/24/21 18:35 12/24/21 18:35 Lab Results 12/24/21 12/24/21 12/24/21 Range/Units 18:35 18:35 18:35 WBC 7.2 (3.8-10.6) k/uL RBC 4.62 (4.30-5.90) m/uL Hgb 15.1 (13.0-17.5) gm/dL Hct 45.7 (39.0-53.0) % MCV 98.9 (80.0-100.0) fL MCH 32.7 (25.0-35.0) pg MCHC 33.0 (31.0-37.0) g/dL RDW 12.1 (11.5-15.5) % Plt Count 223 (150-450) k/uL MPV 8.4 Neutrophils % 68 % Lymphocytes % 15 % Monocytes % 8 % Eosinophils % 6 % Basophils % 1 % Neutrophils # 4.9 (1.3-7.7) k/uL Lymphocytes # 1.1 (1.0-4.8) k/uL Monocytes # 0.6 (0-1.0) k/uL Eosinophils # 0.4 (0-0.7) k/uL Basophils # 0.1 (0-0.2) k/uL PT 12.3 H (9.0-12.0) sec INR 1.2 H (<1.2) APTT 28.6 (22.0-30.0) sec Sodium 137 (137-145) mmol/L Potassium 4.3 (3.5-5.1) mmol/L Chloride 109 H (98-107) mmol/L Carbon Dioxide 22 (22-30) mmol/L Anion Gap 6 mmol/L BUN 17 (9-20) mg/dL Creatinine 1.30 H (0.66-1.25) mg/dL Est GFR (CKD-EPI)AfAm 57 (>60 ml/min/1.73 sqM) Est GFR (CKD-EPI)NonAf 50 (>60 ml/min/1.73 sqM) Glucose 131 H (74-99) mg/dL Calcium 9.4 (8.4-10.2) mg/dL Magnesium 2.2 (1.6-2.3) mg/dL Total Bilirubin 0.6 (0.2-1.3) mg/dL AST 17 (17-59) U/L ALT 11 (4-49) U/L Alkaline Phosphatase 50 (38-126) U/L Troponin I (0.000-0.034) ng/mL Total Protein 5.9 L (6.3-8.2) g/dL Albumin 3.5 (3.5-5.0) g/dL 12/24/21 Range/Units 18:35 WBC (3.8-10.6) k/uL RBC (4.30-5.90) m/uL Hgb (13.0-17.5) gm/dL Hct (39.0-53.0) % MCV (80.0-100.0) fL MCH (25.0-35.0) pg MCHC (31.0-37.0) g/dL RDW (11.5-15.5) % Plt Count (150-450) k/uL MPV Neutrophils % % Lymphocytes % % Monocytes % % Eosinophils % % Basophils % % Neutrophils # (1.3-7.7) k/uL Lymphocytes # (1.0-4.8) k/uL Monocytes # (0-1.0) k/uL Eosinophils # (0-0.7) k/uL Basophils # (0-0.2) k/uL PT (9.0-12.0) sec INR (<1.2) APTT (22.0-30.0) sec Sodium (137-145) mmol/L Potassium (3.5-5.1) mmol/L Chloride (98-107) mmol/L Carbon Dioxide (22-30) mmol/L Anion Gap mmol/L BUN (9-20) mg/dL Creatinine (0.66-1.25) mg/dL Est GFR (CKD-EPI)AfAm (>60 ml/min/1.73 sqM) Est GFR (CKD-EPI)NonAf (>60 ml/min/1.73 sqM) Glucose (74-99) mg/dL Calcium (8.4-10.2) mg/dL Magnesium (1.6-2.3) mg/dL Total Bilirubin (0.2-1.3) mg/dL AST (17-59) U/L ALT (4-49) U/L Alkaline Phosphatase (38-126) U/L Troponin I <0.012 (0.000-0.034) ng/mL Total Protein (6.3-8.2) g/dL Albumin (3.5-5.0) g/dL Disposition Clinical Impression: Vertigo Disposition: HOME SELF-CARE Instructions (If sedation given, give patient instructions): Vertigo (ED) Prescriptions: Meclizine [Antivert] 25 mg PO TID #20 tab Is patient prescribed a controlled substance at d/c from ED?: No Referrals: Solomon Schmid DO [Primary Care Provider] - 1-2 days Time of Disposition: 21:07
[2021-12-24 18:58] LABS: INR 1.2 (<1.2); Partial Thromboplastin Time 28.6 sec (22.0-30.0); Prothrombin Time 12.3 sec (9.0-12.0)
[2021-12-24 19:00] LABS: Albumin 3.5 g/dL (3.5-5.0); Calcium 9.4 mg/dL (8.4-10.2); Magnesium 2.2 mg/dL (1.6-2.3); Potassium 4.3 mmol/L (3.5-5.1); Total Bilirubin 0.6 mg/dL (0.2-1.3); Total Protein 5.9 g/dL (6.3-8.2)
--- NOTE | 2021-12-24 19:23 | CT ---
EXAMINATION TYPE: CT brain wo con CT DLP: 1188.4 mGycm, Automated exposure control for dose reduction was used. DATE OF EXAM: 12/24/2021 7:04 PM COMPARISON: None CLINICAL INDICATION:Male, 86 years old with history of Headache, Lightheaded and dizziness. TECHNIQUE: Brain: Multiple axial CT images of the brain were obtained without IV contrast. FINDINGS: Brain: Extra-axial spaces: No abnormal extra-axial fluid collections. Ventricular system: Dilatation in proportion to cerebral atrophy. Cerebral parenchyma: Cerebral atrophy. Hypodense area within the left basal ganglia consistent with r emote lacunar injury. No acute intraparenchymal hemorrhage or mass effect. The balderas-white junction i s well differentiated. Scattered hypoattenuating areas are seen within the white matter. Cerebellum: Cerebellar atrophy Mass effect: No evidence of midline shift. Intracranial vasculature: Atherosclerotic calcifications of the intracranial vessels. Soft tissues: Normal. Calvarium/osseous structures: No depressed skull fracture. Paranasal sinuses and mastoid air cells: Clear. Visualized orbits: Bilateral aphakia IMPRESSION: 1. No acute intracranial process. 2. Remote lacunar injuries the left basal ganglia along with nonspecific white matter changes likely secondary to chronic microangiopathy.
--- NOTE | 2021-12-24 19:31 | XR ---
EXAMINATION TYPE: XR chest 2V DATE OF EXAM: 12/24/2021 6:58 PM COMPARISON:Multiple radiographs, with the most recent on 02/03/2019 TECHNIQUE: Frontal and lateral views of the chest. CLINICAL INDICATION:Male, 86 years old with history of Chest Pain; FINDINGS: Lungs/Pleura: Prominent interstitial lung markings are seen scattered throughout the lungs. No eviden ce of focal consolidation, pneumothorax or pleural effusion. There is flattening of the diaphragm wit h increased lucency of the lungs. Pulmonary vascularity: Unremarkable. Heart/mediastinum: Cardiomediastinal silhouette is unremarkable. Musculoskeletal: No acute osseous pathology. IMPRESSION: 1. Chronic changes without acute pulmonary process. No significant change from prior. 2. COPD changes.
[2021-12-24 21:31] VITALS: BP 122/87; PULSE 58; RESP 18
== END 2021-12-24 21:48 | disposition home or self-care (01) ==
LOC: EC 18:23
DX: R42 Dizziness and giddiness (principal); R11.2 Nausea with vomiting, unspecified; J44.9 Chronic obstructive pulmonary disease, unspecified; I48.91 Unspecified atrial fibrillation; Z79.899 Other long term (current) drug therapy; Z79.51 Long term (current) use of inhaled steroids
CPT/HCPCS: 36415; 93005; 80053; 83735; 84484; 85025; 85610; 85730; 71046; 70450; 99284; 96374; 96375; 96361; J2765; J3360

== ENCOUNTER → 2023-09-09 | Outpatient (CLI) | payer MEDICARE, OTHER | END | disposition home or self-care (01) | LOC: LABWHC1 10:51 | PROVIDERS: ATTEND Internal Medicine Cardiovascular Disease | DX: I48.3 Typical atrial flutter (principal) | CPT/HCPCS: 36415; 84443; 84450; 84460 ==

== ENCOUNTER → 2023-12-03 | Outpatient (CLI) | payer MEDICARE, OTHER | END | disposition home or self-care (01) | LOC: LABWHC1 11:47 | PROVIDERS: ATTEND Internal Medicine Cardiovascular Disease | DX: I48.3 Typical atrial flutter (principal) | CPT/HCPCS: 36415; 84443; 84450; 84460 ==

== ENCOUNTER 2024-01-02 13:51 | Inpatient (IN) | payer MEDICARE, OTHER ==
--- NOTE | 2024-01-02 13:55 | ED ---
Fall HPI - General Source: patient, RN notes reviewed Mode of arrival: wheelchair Limitations: no limitations - History of Present Illness MD Complaint: fall <Sigrid Chino - Last Filed: 01/02/24 15:06> - General Source: RN notes reviewed, old records reviewed Mode of arrival: wheelchair Limitations: no limitations - History of Present Illness MD Complaint: fall -: minutes(s) Fall From: standing When Fall Occurred: unsure Fall Witnessed: no Place Fall Occurred: home Loss of Consciousness: none Prolonged Down Time?: no Symptoms Prior to Fall: none Location - Extremities: Right: Shoulder, Arm, Elbow, Thigh Severity: moderate, severe Severity scale (1-10): 7 Quality: sharp Context: tripped/slipped Associated Symptoms: denies <Brent Lozada - Last Filed: 01/02/24 21:54> - General Chief Complaint: Fall Stated Complaint: fall-on thinners Time Seen by Provider: 01/02/24 13:53 - History of Present Illness Initial Comments: This is an 88 year old male who presents to the emergency department for a fall when going up the steps. Patient fell and landed on his right shoulder. He is on blood thinners and initially states that he did not hit his head. However he then states that he does not remember. Denies any loss of consciousness. (Sigrid Chino) This is a 88-year-old male after a fall. Fall going up stairs he fell lightheaded and dizzy initially but did not hit his head he is complaining of hip pain right hip pain right shoulder pain still feels dizzy here in the ER. Unsure if he passed out or not, still feels dizzy here in the ER with change of position (Brent Lozada) - Related Data Home Medications Medication Instructions Recorded Confirmed Acetaminophen [Tylenol 8 Hour] 650 mg PO Q8H PRN 12/22/17 12/24/21 Montelukast [Singulair] 10 mg PO HS 12/22/17 12/24/21 Umeclidinium Brm/Vilanterol Tr 1 puff INHALATION RT-DAILY 12/22/17 12/24/21 [Anoro Ellipta 62.5-25 Mcg INH] Levocetirizine Dihydrochloride 5 mg PO DAILY 04/15/19 12/24/21 [Xyzal] Citalopram Hydrobromide [CeleXA] 20 mg PO DAILY 12/20/19 12/24/21 Previous Rx's Medication Instructions Recorded Rivaroxaban [Xarelto] 20 mg PO DAILY #30 tab 12/21/19 Meclizine [Antivert] 25 mg PO TID #20 tab 12/24/21 Allergies Allergy/AdvReac Type Severity Reaction Status Date / Time No Known Allergies Allergy Verified 01/02/24 14:29 Review of Systems ROS Other: All systems not noted in ROS Statement are negative. <Sigrid Chino - Last Filed: 01/02/24 15:06> ROS Other: All systems not noted in ROS Statement are negative. <Brent Lozada - Last Filed: 01/02/24 21:54> ROS Statement: Those systems with pertinent positive or pertinent negative responses have been documented in the HPI. Past Medical History Past Medical History: Atrial Fibrillation, Cancer, COPD, GERD/Reflux, Pneumonia, Pulmonary Embolus (PE) Additional Past Medical History / Comment(s): IBS, hx kidney stones, hx basal cell skin cancer,rectal cancer Dx January-last chemo/radiation 04-17-16, HAS OSTOMY History of Any Multi-Drug Resistant Organisms: None Reported Past Surgical History: Bowel Resection, Joint Replacement, Orthopedic Surgery Additional Past Surgical History / Comment(s): fx left tibia/fibula repair with 19 screws and 2 plates, fx lt femur repair with plate and 3 screws, removal of skin cancer, yusuf. cataract surgery. DEV. SEPTUM SX, COLONOSCOPY, RT PARTIAL HIP REPLACEMENT 04/17/19, OSTOMY Past Anesthesia/Blood Transfusion Reactions: No Reported Reaction Past Psychological History: Anxiety, Depression Smoking Status: Never smoker Past Alcohol Use History: None Reported Past Drug Use History: None Reported - Past Family History Mother Family Medical History: No Reported History Additional Family Medical History / Comment(s): alcoholism, at age 54 Father History Unknown: Yes Brother(s) Additional Family Medical History / Comment(s): heart problems-5 stents <Sigrid Chino - Last Filed: 01/02/24 15:06> General Exam <Sigrid Chino - Last Filed: 01/02/24 15:06> General appearance: alert, in no apparent distress Head exam: Present: atraumatic, normocephalic, normal inspection Eye exam: Present: normal appearance, PERRL, EOMI. Absent: scleral icterus, conjunctival injection, periorbital swelling ENT exam: Present: normal exam, mucous membranes moist Neck exam: Present: normal inspection. Absent: tenderness, meningismus, lymphadenopathy Respiratory exam: Present: normal lung sounds bilaterally. Absent: respiratory distress, wheezes, rales, rhonchi, stridor Cardiovascular Exam: Present: regular rate, normal rhythm, normal heart sounds. Absent: systolic murmur, diastolic murmur, rubs, gallop, clicks GI/Abdominal exam: Present: soft, normal bowel sounds. Absent: distended, tenderness, guarding, rebound, rigid Extremities exam: Present: normal inspection, full ROM, normal capillary refill. Absent: tenderness, pedal edema, joint swelling, calf tenderness Back exam: Present: normal inspection Neurological exam: Present: alert, oriented X3, CN II-XII intact Psychiatric exam: Present: normal affect, normal mood Skin exam: Present: warm, dry, intact, normal color. Absent: rash <Brent Lozada - Last Filed: 01/02/24 21:54> - General Exam Comments Initial Comments: Visual Physical Exam Vital signs reviewed General: Well-appearing, nontoxic, no acute distress. Head: Normocephalic, atraumatic Eyes: PERRLA, EOMI ENT: Airway patent Chest: Nonlabored breathing Skin: No visual rash, normal skin tone Neuro: Alert and oriented 3 Musculoskeletal: No gross abnormalities (Vogley,Sigrid) Course <Brent Lozada - Last Filed: 01/02/24 21:54> Vital Signs 01/02/24 14:26 Temperature 97.7 F Pulse Rate 50 L Respiratory 16 Rate Blood Pressure 91/57 O2 Sat by Pulse 95 Oximetry - Reevaluation(s) Reevaluation #1: 01/02/24 21:32 Medical records reviewed (Brent Lozada) Reevaluation #2: 01/02/24 21:32 Patient symptoms unchanged (Brent Lozada) Reevaluation #3: 01/02/24 21:32 Patient informed of results questions answered (Brent Lozada) Reevaluation #4: Was pt. sent in by a medical professional or institution (, [facility], [employer]ODUCTION [employer]NER, urgent care, hospital, or fpc...) When possible be specific @ -no Did you speak to anyone other than the patient for history (EMS, parent, family, police, friend...)? What history was obtained from this source @ -no Did you review nursing and triage notes (agree or disagree)? Why? @ -agree Are old charts reviewed (outside hosp., previous admission, EMS record, old EKG, old radiological studies, urgent care reports/EKG's, fpc records)? Report findings @ -yes Differential Diagnosis (chest pain, altered mental status, abdominal pain women, abdominal pain men, vaginal bleeding, weakness, fever, dyspnea, syncope, headache, dizziness, GI bleed, back pain, seizure, CVA, palpatations, mental health, musculoskeletal)? @ -prior EKG interpreted by me (3pts min.). @ -yes X-rays interpreted by me (1pt min.). @ -yes negative for acute disease CT interpreted by me (1pt min.). @ -no U/S interpreted by me (1pt. min.). @ -no What testing was considered but not performed or refused? (CT, X-rays, U/S, labs)? Why? @ -none What meds were considered but not given or refused? Why? @ -none Did you discuss the management of the patient with other professionals (professionals i.e. [facility] Lamb, PR[employer] CONTROL [employer]ANNER, lab, RT, psych nurse, psychiatric social worker, program management professional, teacher, loan review officer, heel caser)? Give summary @ -no Was smoking cessation discussed for >3mins.? @ -no Was critical care preformed (if so, how long)? @ -no Were there social determinants of health that impacted care today? How? (Homelessness, low income, unemployed, alcoholism, drug addiction, transporta tion, low edu. Level, literacy, decrease access to med. care, longterm, rehab)? @ -none Was there de-escalation of care discussed even if they declined (Discuss DNR or withdrawal of care, Hospice)? DNR status @ -no What co-morbidities impacted this encounter? (DM, HTN, Smoking, COPD, CAD, Cancer, CVA, ARF, Chemo, Hep., AIDS, mental health diagnosis, sleep apnea, morbid obesity)? @ -none Was patient admitted / discharged? Hospital course, mention meds given and route, prescriptions, significant lab abnormalities, going to OR and other pertinent info. @ - Undiagnosed new problem with uncertain prognosis? @ -no Drug Therapy requiring intensive monitoring for toxicity (Heparin, Nitro, Insulin, Cardizem)? @ -no Were any procedures done? @ -no Diagnosis/symptom? @ - Acute, or Chronic, or Acute on Chronic? @ -Acute Uncomplicated (without systemic symptoms) or Complicated (systemic symptoms)? @ -Complicated Side effects of treatment? @ -no Exacerbation, Progression, or Severe Exacerbation? @ -exacerbation Poses a threat to life or bodily function? How? (Chest pain, USA, IL, pneumonia, PE, COPD, DKA, ARF, appy, cholecystitis, CVA, Diverticulitis, Homicidal, Suicidal, threat to staff... and all critical care pts) @ -yes (Brent Lozada) Reevaluation #5: Differential Weakness: Hypoglycemia, shock, sepsis, hyponatremia, anemia, infection, IL, ETOH, adverse medicine reaction, overdose, stroke, this is not meant to be an all-inclusive list. (Brent Lozada) - Consultations Consultation #1: Spoke with [facility] who agrees to admit this patient (Brent Lozada) Medical Decision Making <Sigrid Chino - Last Filed: 01/02/24 15:06> - Lab Data Result diagrams: 01/02/24 19:55 01/02/24 19:55 - EKG Data -: EKG Interpreted by [facility] - Radiology Data Radiology results: report reviewed (ET brain and C-spine negative for acute disease x-ray pelvis negative for acute disease chest x-ray shoulder x-ray positive for humerus fracture), image reviewed <Brent Lozada - Last Filed: 01/02/24 21:54> - Medical Decision Making I performed the QuickNote portion of this chart. Signed Sigrid Chino PA-C. (Sigrid Chino) 88 male to ER for evaluation of weakness and dizziness probable syncopal event the patient fell resulting in uncomplicated right humerus fracture. Patient was placed in a splint but still feels dizzy here in the ER prior to discharge patient admitted for continued hydration and further evaluation of dizziness, syncope (Brent Lozada) - Lab Data Lab Results 01/02/24 01/02/24 01/02/24 Range/Units 19:55 19:55 19:55 WBC 12.6 H (3.8-10.6) k/uL RBC 4.01 L (4.30-5.90) m/uL Hgb 13.3 (13.0-17.5) gm/dL Hct 40.0 (39.0-53.0) % MCV 99.9 (80.0-100.0) fL MCH 33.1 (25.0-35.0) pg MCHC 33.2 (31.0-37.0) g/dL RDW 12.6 (11.5-15.5) % Plt Count 197 (150-450) k/uL MPV 8.6 Neutrophils % 91 % Lymphocytes % 4 % Monocytes % 4 % Eosinophils % 0 % Basophils % 0 % Neutrophils # 11.5 H (1.3-7.7) k/uL Lymphocytes # 0.5 L (1.0-4.8) k/uL Monocytes # 0.5 (0-1.0) k/uL Eosinophils # 0.0 (0-0.7) k/uL Basophils # 0.0 (0-0.2) k/uL PT 13.0 H (10.0-12.5) sec INR 1.2 H (<1.2) APTT 28.6 (22.0-30.0) sec Sodium 136 L (137-145) mmol/L Potassium 4.3 (3.5-5.1) mmol/L Chloride 104 (98-107) mmol/L Carbon Dioxide 25 (22-30) mmol/L Anion Gap 7 mmol/L BUN 24 H (9-20) mg/dL Creatinine 1.18 (0.66-1.25) mg/dL Est GFR (CKD-EPI)AfAm 63 (>60 ml/min/1.73 sqM) Est GFR (CKD-EPI)NonAf 55 (>60 ml/min/1.73 sqM) Glucose 127 H (74-99) mg/dL Plasma Lactic Acid Adrian (0.7-2.0) mmol/L Calcium 9.5 (8.4-10.2) mg/dL Phosphorus 2.7 (2.5-4.5) mg/dL Magnesium 2.1 (1.6-2.3) mg/dL Total Bilirubin 0.5 (0.2-1.3) mg/dL AST 18 (17-59) U/L ALT 18 (4-49) U/L Alkaline Phosphatase 63 (38-126) U/L Troponin I (0.000-0.034) ng/mL Total Protein 5.6 L (6.3-8.2) g/dL Albumin 3.6 (3.5-5.0) g/dL 01/02/24 01/02/24 Range/Units 19:55 19:55 WBC (3.8-10.6) k/uL RBC (4.30-5.90) m/uL Hgb (13.0-17.5) gm/dL Hct (39.0-53.0) % MCV (80.0-100.0) fL MCH (25.0-35.0) pg MCHC (31.0-37.0) g/dL RDW (11.5-15.5) % Plt Count (150-450) k/uL MPV Neutrophils % % Lymphocytes % % Monocytes % % Eosinophils % % Basophils % % Neutrophils # (1.3-7.7) k/uL Lymphocytes # (1.0-4.8) k/uL Monocytes # (0-1.0) k/uL Eosinophils # (0-0.7) k/uL Basophils # (0-0.2) k/uL PT (10.0-12.5) sec INR (<1.2) APTT (22.0-30.0) sec Sodium (137-145) mmol/L Potassium (3.5-5.1) mmol/L Chloride (98-107) mmol/L Carbon Dioxide (22-30) mmol/L Anion Gap mmol/L BUN (9-20) mg/dL Creatinine (0.66-1.25) mg/dL Est GFR (CKD-EPI)AfAm (>60 ml/min/1.73 sqM) Est GFR (CKD-EPI)NonAf (>60 ml/min/1.73 sqM) Glucose (74-99) mg/dL Plasma Lactic Acid Adrian 1.9 (0.7-2.0) mmol/L Calcium (8.4-10.2) mg/dL Phosphorus (2.5-4.5) mg/dL Magnesium (1.6-2.3) mg/dL Total Bilirubin (0.2-1.3) mg/dL AST (17-59) U/L ALT (4-49) U/L Alkaline Phosphatase (38-126) U/L Troponin I <0.012 (0.000-0.034) ng/mL Total Protein (6.3-8.2) g/dL Albumin (3.5-5.0) g/dL Disposition <Sigrid Chino - Last Filed: 01/02/24 15:06> Is patient prescribed a controlled substance at d/c from ED?: No Time of Disposition: 20:30 <Brent Lozada - Last Filed: 01/02/24 21:54> Clinical Impression: Fall, Right humeral fracture, Weakness, Dyspnea, Dizziness, Syncope, Pre- syncope, Bradycardia Disposition: ADMITTED IP TO THIS HOSP Condition: Good Instructions (If sedation given, give patient instructions): Arm Fracture in Adults (ED), Fall Prevention for Older Adults (ED) Referrals: Dave Walsh MD [Medical Doctor] - 1-2 days
--- NOTE | 2024-01-02 15:31 | XR ---
EXAMINATION TYPE: XR shoulder complete 3 views RT DATE OF EXAM: 01/02/2024 Comparison: None Clinical History: 88-year-old male with Pain after fall Findings: There is narrowing of the subacromial space which may reflect underlying full-thickness rotator cuff tear. There is also impacted appearance of the surgical neck with vertically oriented lucency at the level of the metaphysis. Possible impaction of 2.1 cm. Moderate degenerative change of the AC joint. Impression: 1. A couple images suggest a surgical neck fracture of the proximal humerus impacted by nearly 2 cm. However, it is not well seen on the scapular Y view. 2. Narrowing of the subacromial space suggests underlying chronic full-thickness rotator cuff tear. 3. Moderate AC joint OA.
--- NOTE | 2024-01-02 16:01 | CT ---
EXAMINATION TYPE: CT brain cspine wo con DATE OF EXAM: 01/02/2024 COMPARISON: CT head on 12/24/2021. HISTORY: Fall with right-sided weakness. CT DLP: 1297.1 mGycm Automated exposure control for dose reduction was used. TECHNIQUE: CT scan of the head and cervical spine are performed without contrast. FINDINGS: Emphysematous changes are seen at the visualized lung apices. These are significant. There is no acut e intracranial hemorrhage, mass effect, or midline shift identified. The ventricles and sulci are wi thin normal limits in size. The globes are intact and the visualized sinuses are clear. There is hyp oattenuation seen within the periventricular, subcortical and deep white matter which likely relates to chronic ischemic small vessel change. There is diffuse cerebral and cerebellar atrophy. This is li lauren age-related. Cervical spine is visualized in its entirety from C1 through upper thoracic levels and demonstrates s atisfactory alignment without evidence of acute fracture or dislocation. Prevertebral soft tissue ap pears within normal limits. The C1-C2 articulation is unremarkable. There is scattered multilevel d egenerative disc and facet changes throughout the spine which are [id number]. There is no preve rtebral soft tissue swelling. IMPRESSION: 1. No acute intracranial process with chronic changes otherwise noted above. 2. Degenerative changes within the spine with no acute osseous abnormalities. 3. Emphysema at the lung apices lungs visualized portions.
[2024-01-02] MEDS: SODIUM CHLORIDE 0.9% 1,000 ML IV STA ×2 (20:10→22:46)
[2024-01-02] MEDS ORDERED: MORPHINE SULFATE 4 MG/ML SYRINGE IVP PRN (20:31)
[2024-01-02 20:40] LABS: Basophils % (A) 0 %; Eosinophils % (A) 0 %; HGB 13.3 gm/dL (13.0-17.5); INR 1.2 (<1.2); Lymphocytes # (A) 0.5 k/uL (1.0-4.8); Lymphocytes % (A) 4 %; MCH 33.1 pg (25.0-35.0); MCHC 33.2 g/dL (31.0-37.0); MCV 99.9 fL (80.0-100.0); Mean Platelet Volume 8.6; Monocytes # (A) 0.5 k/uL (0-1.0); Monocytes % (A) 4 %; Neutrophils # (A) 11.5 k/uL (1.3-7.7); Neutrophils % (A) 91 %; Partial Thromboplastin Time 28.6 sec (22.0-30.0); Platelet Count 197 k/uL (150-450); RBC 4.01 m/uL (4.30-5.90); RDW 12.6 % (11.5-15.5); WBC 12.6 k/uL (3.8-10.6)
[2024-01-02] MEDS: KETOROLAC 15 MG/ML 1 ML VIAL IVP STA (20:55)
[2024-01-02] MEDS: MORPHINE SULFATE 4 MG/ML SYRINGE IVP STA (20:55)
[2024-01-02] MEDS: ONDANSETRON 4 MG/2 ML VIAL IVP STA (21:00)
[2024-01-02] MEDS: SODIUM CHLORIDE 0.9% 500 ML 500 ML IV STA (21:00)
--- NOTE | 2024-01-02 21:00 | XR ---
EXAMINATION TYPE: XR Hip RT and AP Pelvis DATE OF EXAM: 01/02/2024 8:50 PM CLINICAL INDICATION:Male, 88 years old with history of pain; COMPARISON: None. TECHNIQUE: XR Hip RT and AP Pelvis; hip was examined in the frontal and lateral projections and a AP pelvis. FINDINGS: Right hip arthroplasty changes with left hip fixation screw. Hardware appears intact. No evidence of fracture. Multilevel degeneration changes spine. No evidence for acute process, joint dislocation or significant soft tissue swelling. IMPRESSION: No acute process.
[2024-01-02 21:24] LABS: ALT 18 U/L (4-49); AST 18 U/L (17-59); African American GFR (CKD) 63 (>60 ml/min/1.73 sqM); Albumin 3.6 g/dL (3.5-5.0); Alkaline Phosphatase 63 U/L (38-126); Anion Gap 7 mmol/L; Blood Urea Nitrogen 24 mg/dL (9-20); Calcium 9.5 mg/dL (8.4-10.2); Carbon Dioxide 25 mmol/L (22-30); Chloride 104 mmol/L (98-107); Glucose 127 mg/dL (74-99); Magnesium 2.1 mg/dL (1.6-2.3); Non-African American GFR(CKD) 55 (>60 ml/min/1.73 sqM); Phosphorus 2.7 mg/dL (2.5-4.5); Potassium 4.3 mmol/L (3.5-5.1); Sodium 136 mmol/L (137-145); Total Bilirubin 0.5 mg/dL (0.2-1.3); Total Protein 5.6 g/dL (6.3-8.2)
[2024-01-02] MEDS ORDERED: ONDANSETRON 4 MG/2 ML VIAL IVP PRN (21:51)
[2024-01-02] MEDS ORDERED: NALOXONE 0.4 MG/ML 1 ML VIAL IV PRN (21:51)
[2024-01-02] MEDS: IPRATROPIUM-ALBUTEROL 3 ML NEB INHALATION STA (22:10)
[2024-01-03] MEDS: SODIUM CHLORIDE 0.9% 1,000 ML IV SCH (05:53)
[2024-01-03 06:38] LABS: Appearance,Urine Turbid (Clear); Bacteria,Urine Occasional /hpf; Bilirubin,Urine Negative (Negative); Blood,Urine Large (Negative); Color,Urine Red; Glucose,Urine (UA) Negative (Negative); Ketones,Urine Negative (Negative); Leukocyte Esterase,Urine Small (Negative); Mucus,Urine Moderate /hpf; Nitrite,Urine Negative (Negative); PH, Urine 5.5 (5.0-8.0); Protein,Urine 1+ (Negative); RBC,Urine >182 /hpf (0-5); Specific Gravity,Urine 1.026 (1.001-1.035); Squamous Epithelial Cell,Urine 1 /hpf (0-4); Urobilinogen,Urine <2.0 mg/dL (<2.0); WBC,Urine 136 /hpf (0-5)
[2024-01-03] MEDS: ACETAMINOPHEN TAB 325 MG TAB PO PRN (07:02)
[2024-01-03 07:32] LABS: Basophils # (A) 0.1 k/uL (0-0.2); Basophils % (A) 1 %; Eosinophils # (A) 0.1 k/uL (0-0.7); Eosinophils % (A) 1 %; HCT 34.1 % (39.0-53.0); HGB 11.3 gm/dL (13.0-17.5); Lymphocytes # (A) 0.5 k/uL (1.0-4.8); Lymphocytes % (A) 5 %; MCH 33.7 pg (25.0-35.0); MCHC 33.1 g/dL (31.0-37.0); MCV 101.5 fL (80.0-100.0); Mean Platelet Volume 8.3; Monocytes # (A) 0.7 k/uL (0-1.0); Monocytes % (A) 8 %; Neutrophils # (A) 7.2 k/uL (1.3-7.7); Neutrophils % (A) 84 %; Platelet Count 169 k/uL (150-450); RBC 3.35 m/uL (4.30-5.90); RDW 12.6 % (11.5-15.5); WBC 8.5 k/uL (3.8-10.6)
[2024-01-03 08:07] LABS: ALT 16 U/L (4-49); AST 16 U/L (17-59); African American GFR (CKD) 63 (>60 ml/min/1.73 sqM); Albumin 2.8 g/dL (3.5-5.0); Alkaline Phosphatase 53 U/L (38-126); Anion Gap 4 mmol/L; Blood Urea Nitrogen 23 mg/dL (9-20); Calcium 8.9 mg/dL (8.4-10.2); Carbon Dioxide 24 mmol/L (22-30); Chloride 109 mmol/L (98-107); Glucose 98 mg/dL (74-99); Lipase 65 U/L (23-300); Magnesium 1.9 mg/dL (1.6-2.3); Non-African American GFR(CKD) 54 (>60 ml/min/1.73 sqM); Phosphorus 3.1 mg/dL (2.5-4.5); Potassium 4.5 mmol/L (3.5-5.1); Sodium 137 mmol/L (137-145); Total Bilirubin 0.7 mg/dL (0.2-1.3); Total Protein 4.7 g/dL (6.3-8.2)
--- NOTE | 2024-01-03 09:47 | P.CRDCN ---
History of Present Illness History of present illness: HISTORY OF PRESENT ILLNESS: This is a 88-year-old male with a past medical history significant for paroxysmal atrial fibrillation, COPD, GERD, anxiety, and depression. Patient follows in the office with Dr. Mohamud. We have been asked to see the patient in consultation for bradycardia. Patient examined at the bedside. Patient states yesterday he was walking to the garage when he lost his balance and fell. He denied any dizziness or lightheadedness prior to falling. He denied any chest pain or pressure. Denies any shortness of breath. He denies any loss of consciousness. Telemetry reveals sinus mechanism with a heart rate greater than 50. There has been no significant bradycardia, arrhythmias, or heart block noted. He states he is feeling well this morning and is hoping to be discharged home. DIAGNOSTICS: - EKG reveals sinus mechanism with right bundle branch block. - Laboratory data: WBC 8.5. Hemoglobin 11.3. Platelet count 169. Sodium 137. Potassium 4.5. BUN 23. Creatinine 1.19. Lactic acid 1.9. - Current home cardiac medications include Xarelto 20 mg daily and amiodarone 200 mg at night. - Most recent echocardiogram obtained in the office in November 2023 revealed ejection fraction 55%, mild MR, mild TR REVIEW OF SYSTEMS: At the time of my exam: CONSTITUTIONAL: Denies fever or chills. HEENT: Denies blurred vision, vision changes, or eye pain. Denies hemoptysis CARDIOVASCULAR: Denies chest pain. Denies orthopnea. Denies PND. Denies palpitations RESPIRATORY: Denies shortness of breath. GASTROINTESTINAL: Denies abdominal pain. Denies nausea or vomiting. HEMATOLOGIC: Denies bleeding disorders. GENITOURINARY: Denies any blood in urine. SKIN: Denies pruitis. Denies rash. PHYSICAL EXAM: VITAL SIGNS: Reviewed. GENERAL: Well-developed in no acute distress. HEENT: Head is normocephalic. Pupils are equal, round. Sclerae anicteric. Mucous membranes of the mouth are moist. Neck supple. No JVD or thyromegaly LUNGS: Respirations even and unlabored. Lungs essentially clear to auscultation bilaterally. HEART: Regular rate and rhythm. S1 and S2 heard. ABDOMEN: Soft. Nondistended. Nontender. EXTREMITIES: Normal range of motion. No clubbing or cyanosis. Peripheral pulses intact. No lower extremity edema NEUROLOGIC: Awake and alert. Oriented x 3. ASSESSMENT: Status post mechanical fall without evidence of syncope Sinus bradycardia, asymptomatic Possible right humerus fracture Paroxysmal atrial fibrillation History of COPD History of GERD History of anxiety History of depression PLAN: No need to repeat echocardiogram as this was performed last month in the office Resume amiodarone From a cardiology standpoint, resume anticoagulation No further inpatient recommendations from a cardiac standpoint Patient may be discharged home today and follow-up in the office with Dr. Mohamud Nurse practitioner note has been reviewed by physician. Signing provider agrees with the documented findings, assessment, and plan of care documented by SENIOR CASE MANAGER as a scribe. Past Medical History Past Medical History: Atrial Fibrillation, Cancer, COPD, GERD/Reflux, Pneumonia, Pulmonary Embolus (PE) Additional Past Medical History / Comment(s): IBS, hx kidney stones, hx basal cell skin cancer,rectal cancer Dx January-last chemo/radiation 04-17-16, HAS OSTOMY History of Any Multi-Drug Resistant Organisms: None Reported Past Surgical History: Bowel Resection, Joint Replacement, Orthopedic Surgery Additional Past Surgical History / Comment(s): fx left tibia/fibula repair with 19 screws and 2 plates, fx lt femur repair with plate and 3 screws, removal of skin cancer, yusuf. cataract surgery. DEV. SEPTUM SX, COLONOSCOPY, RT PARTIAL HIP REPLACEMENT 04/17/19, OSTOMY Past Anesthesia/Blood Transfusion Reactions: No Reported Reaction Past Psychological History: Anxiety, Depression Smoking Status: Never smoker Past Alcohol Use History: None Reported Additional Past Alcohol Use History / Comment(s): quit 1984 Past Drug Use History: None Reported - Past Family History Mother Family Medical History: No Reported History Additional Family Medical History / Comment(s): alcoholism, at age 54 Father History Unknown: Yes Brother(s) Additional Family Medical History / Comment(s): heart problems-5 stents Medications and Allergies Home Medications Medication Instructions Recorded Confirmed Type Montelukast [Singulair] 10 mg PO DAILY 12/22/17 01/02/24 History Umeclidinium Brm/Vilanterol Tr 1 puff INHALATION RT-DAILY 12/22/17 01/02/24 History [Anoro Ellipta 62.5-25 Mcg INH] Citalopram Hydrobromide [CeleXA] 20 mg PO HS 12/20/19 01/02/24 History Rivaroxaban [Xarelto] 20 mg PO DAILY #30 tab 12/21/19 01/02/24 Rx Albuterol Inhaler [Ventolin Hfa 2 puff INHALATION RT-Q4H PRN 01/02/24 01/02/24 History Inhaler] Amiodarone [Cordarone] 200 mg PO HS 01/02/24 01/02/24 History Omeprazole 20 mg PO DAILY 01/02/24 01/02/24 History Vitamin D(Unknown Dose) 1 tab PO HS 01/02/24 01/02/24 History Allergies Allergy/AdvReac Type Severity Reaction Status Date / Time No Known Allergies Allergy Verified 01/02/24 22:30 Physical Exam Vitals: Vital Signs Temp Pulse Pulse Resp BP BP Pulse Ox 01/03/24 07:00 97.3 F L 69 16 122/57 94 L 01/03/24 02:42 59 L 16 01/03/24 01:09 97.5 F L 61 16 106/64 95 01/02/24 23:00 74 16 98/51 93 L 01/02/24 22:21 39 L 01/02/24 22:10 40 L 01/02/24 22:00 136/66 92 L 01/02/24 21:00 125/73 98 01/02/24 20:54 96 01/02/24 14:26 97.7 F 50 L 16 91/57 95 Intake and Output 01/02/24 01/03/24 01/03/24 22:59 06:59 14:59 Other: Voiding Method Urinal # Voids 1 Weight 65.771 kg Results 01/03/24 07:03 01/03/24 07:03 Cardiac Enzymes 01/02/24 01/02/24 01/03/24 Range/Units 19:55 19:55 07:03 AST 18 16 L (17-59) U/L Troponin I <0.012 (0.000-0.034) ng/mL Coagulation 01/02/24 Range/Units 19:55 PT 13.0 H (10.0-12.5) sec APTT 28.6 (22.0-30.0) sec CBC 01/02/24 01/03/24 Range/Units 19:55 07:03 WBC 12.6 H 8.5 (3.8-10.6) k/uL RBC 4.01 L 3.35 L (4.30-5.90) m/uL Hgb 13.3 11.3 L (13.0-17.5) gm/dL Hct 40.0 34.1 L (39.0-53.0) % Plt Count 197 169 (150-450) k/uL Comprehensive Metabolic Panel 01/02/24 01/03/24 Range/Units 19:55 07:03 Sodium 136 L 137 (137-145) mmol/L Potassium 4.3 4.5 (3.5-5.1) mmol/L Chloride 104 109 H (98-107) mmol/L Carbon Dioxide 25 24 (22-30) mmol/L BUN 24 H 23 H (9-20) mg/dL Creatinine 1.18 1.19 (0.66-1.25) mg/dL Glucose 127 H 98 (74-99) mg/dL Calcium 9.5 8.9 (8.4-10.2) mg/dL AST 18 16 L (17-59) U/L ALT 18 16 (4-49) U/L Alkaline Phosphatase 63 53 (38-126) U/L Total Protein 5.6 L 4.7 L (6.3-8.2) g/dL Albumin 3.6 2.8 L (3.5-5.0) g/dL Current Medications Generic Name Dose Route Start Last Admin Trade Name Freq PRN Reason Stop Dose Admin Acetaminophen 650 mg 01/03/24 06:46 01/03/24 07:02 Acetaminophen Tab 325 Mg Tab PO 650 mg Q6HR PRN Administration Fever and/ or Pain Albuterol/Ipratropium 3 ml 01/02/24 20:31 Ipratropium-Albuterol 3 Ml Neb INHALATION RT-QID PRN Shortness Of Breath Or Wheezing Amiodarone HCl 200 mg 01/03/24 21:00 Amiodarone 200 Mg Tab PO HS MARIXA Sodium Chloride 1,000 mls @ 75 mls/hr 01/02/24 20:31 01/02/24 22:46 Saline 0.9% IV 01/03/24 09:50 Not Given .[id number] STA Sodium Chloride 1,000 mls @ 130 mls/hr 01/02/24 22:00 01/03/24 06:05 Saline 0.9% IV Not Given .[id number] [facility] Morphine Sulfate 4 mg 01/02/24 20:31 Morphine Sulfate 4 Mg/Ml Syringe IVP Q4HR PRN Pain Naloxone HCl 0.2 mg 01/02/24 21:51 Naloxone 0.4 Mg/Ml 1 Ml Vial IV Q2M PRN Opioid Reversal Ondansetron HCl 4 mg 01/02/24 21:51 Ondansetron 4 Mg/2 Ml Vial IVP Q8HR PRN Nausea And Vomiting Pantoprazole Sodium 40 mg 01/03/24 09:00 Pantoprazole 40 Mg/10 Ml Vial IV DAILY [facility] Rivaroxaban 20 mg 01/04/24 09:00 Rivaroxaban 20 Mg Tab PO DAILY [facility] Protocol Intake and Output 01/02/24 01/03/24 01/03/24 22:59 06:59 14:59 Other: Voiding Method Urinal # Voids 1 Weight 65.771 kg 01/03/24 07:03 01/03/24 07:03
[2024-01-03] MEDS: PANTOPRAZOLE 40 MG/10 ML VIAL IV SCH (10:06)
[2024-01-03] MEDS ORDERED: ALBUTEROL NEBULIZED 2.5 MG/3 ML INHALATION PRN (11:54)
--- NOTE | 2024-01-03 12:49 | P.HPIM ---
History of Present Illness 88-year-old had a mechanical fall without any syncope and has a fracture of the left humerus presently has a sling and no other fractures at this time. Patient was eval by cardiology because of sinus bradycardia although this is only sinus Bradycardia which is not required any intervention and patient did have a syncope. Patient lives at [facility] and is complaining of generalized weakness. Patient does not have any lightheadedness at this time patient urine is significantly abnormal with elevated white count, significantly elevated WBC in the urine and significant RBC in the urine. Patient denies any UTI symptoms Patient serum creatinine is 1.1 close to his baseline. Patient has history of atrial fibrillation paroxysmal, on anticoagulation with Xarelto REVIEW OF SYSTEMS: CONSTITUTIONAL: No fever, no malaise, no fatigue. HEENT: No recent visual problems or hearing problems. Denied any sore throat. CARDIOVASCULAR: No chest pain, orthopnea, PND, no palpitations, no syncope. PULMONARY: No shortness of breath, no cough, no hemoptysis. GASTROINTESTINAL: No diarrhea, no nausea, no vomiting, no abdominal pain. NEUROLOGICAL: No headaches, no weakness, no numbness. HEMATOLOGICAL: Denies any bleeding or petechiae. GENITOURINARY: Denies any burning micturition, frequency, or urgency. MUSCULOSKELETAL/RHEUMATOLOGICAL: Denies any joint pain, swelling, or any muscle pain. ENDOCRINE: Denies any polyuria or polydipsia. The rest of the 14-point review of systems is negative. PHYSICAL EXAMINATION: GENERAL: The patient is alert and oriented x3, not in any acute distress. Well developed, well nourished. HEENT: Pupils are round and equally reacting to light. EOMI. No scleral icterus. No conjunctival pallor. Normocephalic, atraumatic. No pharyngeal erythema. No thyromegaly. CARDIOVASCULAR: S1 and S2 present. No murmurs, rubs, or gallops. PULMONARY: Chest is clear to auscultation, no wheezing or crackles. ABDOMEN: Soft, nontender, nondistended, normoactive bowel sounds. No palpable organomegaly. Has a colostomy MUSCULOSKELETAL: No joint swelling or deformity. EXTREMITIES: No cyanosis, clubbing, or pedal edema. NEUROLOGICAL: Gross neurological examination did not reveal any focal deficits. SKIN: No rashes. Assessment and plan 1 fall patient had a mechanical fall with fracture in the right humerus continue with the sling patient pain is well-controlled with Tylenol which will be continued -Asymptomatic sinus bradycardia no further additional intervention at this time Given significant generalized weakness will need physical therapy occupational therapy evaluation before discharge -Asymptomatic bacteriuria would not require any antibiotics -Paroxysmal atrial fibrillation presently rate controlled in sinus rhythm with present home medications Leukocytosis secondary to fall which resolved at this time without any antibiotics -Hematuria, mild which resolved at this time continue with anticoagulation but if patient continues to have hematuria as an outpatient will need further workup with a cystoscopy. -COPD without any acute exacerbation -Depression -Anxiety -History of basal cell carcinoma in remission -History of rectal cancer status post chemoradiation is in remission, patient has a colostomy DVT prophylaxis: Patient is already on anticoagulation for atrial fibrillation Past Medical History Past Medical History: Atrial Fibrillation, Cancer, COPD, GERD/Reflux, Pneumonia, Pulmonary Embolus (PE) Additional Past Medical History / Comment(s): IBS, hx kidney stones, hx basal cell skin cancer,rectal cancer Dx January-last chemo/radiation 04-17-16, HAS OSTOMY History of Any Multi-Drug Resistant Organisms: None Reported Past Surgical History: Bowel Resection, Joint Replacement, Orthopedic Surgery Additional Past Surgical History / Comment(s): fx left tibia/fibula repair with 19 screws and 2 plates, fx lt femur repair with plate and 3 screws, removal of skin cancer, yusuf. cataract surgery. DEV. SEPTUM SX, COLONOSCOPY, RT PARTIAL HIP REPLACEMENT 04/17/19, OSTOMY Past Anesthesia/Blood Transfusion Reactions: No Reported Reaction Past Psychological History: Anxiety, Depression Smoking Status: Never smoker Past Alcohol Use History: None Reported Additional Past Alcohol Use History / Comment(s): quit 1984 Past Drug Use History: None Reported - Past Family History Mother Family Medical History: No Reported History Additional Family Medical History / Comment(s): alcoholism, at age 54 Father History Unknown: Yes Brother(s) Additional Family Medical History / Comment(s): heart problems-5 stents Medications and Allergies Home Medications Medication Instructions Recorded Confirmed Type Montelukast [Singulair] 10 mg PO DAILY 12/22/17 01/02/24 History Umeclidinium Brm/Vilanterol Tr 1 puff INHALATION RT-DAILY 12/22/17 01/02/24 History [Anoro Ellipta 62.5-25 Mcg INH] Citalopram Hydrobromide [CeleXA] 20 mg PO HS 12/20/19 01/02/24 History Rivaroxaban [Xarelto] 20 mg PO DAILY #30 tab 12/21/19 01/02/24 Rx Albuterol Inhaler [Ventolin Hfa 2 puff INHALATION RT-Q4H PRN 01/02/24 01/02/24 History Inhaler] Amiodarone [Cordarone] 200 mg PO HS 01/02/24 01/02/24 History Omeprazole 20 mg PO DAILY 01/02/24 01/02/24 History Vitamin D(Unknown Dose) 1 tab PO HS 01/02/24 01/02/24 History Allergies Allergy/AdvReac Type Severity Reaction Status Date / Time No Known Allergies Allergy Verified 01/02/24 22:30 Physical Exam Vitals: Vital Signs Temp Pulse Pulse Resp BP BP Pulse Ox 01/03/24 07:00 97.3 F L 69 16 122/57 94 L 01/03/24 02:42 59 L 16 01/03/24 01:09 97.5 F L 61 16 106/64 95 01/02/24 23:00 74 16 98/51 93 L 01/02/24 22:21 39 L 01/02/24 22:10 40 L 01/02/24 22:00 136/66 92 L 01/02/24 21:00 125/73 98 01/02/24 20:54 96 01/02/24 14:26 97.7 F 50 L 16 91/57 95 Intake and Output 01/02/24 01/03/24 01/03/24 22:59 06:59 14:59 Output Total 150 Balance -150 Output: Urine 150 Other: Voiding Method Urinal Urinal # Voids 1 Weight 65.771 kg Results CBC & Chem 7: 01/03/24 07:03 01/03/24 07:03 Labs: Abnormal Lab Results - Last 24 Hours (Table) 01/02/24 01/02/24 01/02/24 Range/Units 19:55 19:55 19:55 WBC 12.6 H (3.8-10.6) k/uL RBC 4.01 L (4.30-5.90) m/uL Hgb (13.0-17.5) gm/dL Hct (39.0-53.0) % MCV (80.0-100.0) fL Neutrophils # 11.5 H (1.3-7.7) k/uL Lymphocytes # 0.5 L (1.0-4.8) k/uL PT 13.0 H (10.0-12.5) sec INR 1.2 H (<1.2) Sodium 136 L (137-145) mmol/L Chloride (98-107) mmol/L BUN 24 H (9-20) mg/dL Glucose 127 H (74-99) mg/dL AST (17-59) U/L Total Protein 5.6 L (6.3-8.2) g/dL Albumin (3.5-5.0) g/dL Urine Protein (Negative) Urine Blood (Negative) Ur Leukocyte Esterase (Negative) Urine RBC (0-5) /hpf Urine WBC (0-5) /hpf Urine WBC Clumps (None) /hpf Urine Bacteria (None) /hpf Urine Mucus (None) /hpf 01/03/24 01/03/24 01/03/24 Range/Units 05:48 07:03 07:03 WBC (3.8-10.6) k/uL RBC 3.35 L (4.30-5.90) m/uL Hgb 11.3 L (13.0-17.5) gm/dL Hct 34.1 L (39.0-53.0) % MCV 101.5 H (80.0-100.0) fL Neutrophils # (1.3-7.7) k/uL Lymphocytes # 0.5 L (1.0-4.8) k/uL PT (10.0-12.5) sec INR (<1.2) Sodium (137-145) mmol/L Chloride 109 H (98-107) mmol/L BUN 23 H (9-20) mg/dL Glucose (74-99) mg/dL AST 16 L (17-59) U/L Total Protein 4.7 L (6.3-8.2) g/dL Albumin 2.8 L (3.5-5.0) g/dL Urine Protein 1+ H (Negative) Urine Blood Large H (Negative) Ur Leukocyte Esterase Small H (Negative) Urine RBC >182 H (0-5) /hpf Urine WBC 136 H (0-5) /hpf Urine WBC Clumps Few H (None) /hpf Urine Bacteria Occasional H (None) /hpf Urine Mucus Moderate H (None) /hpf Thrombosis Risk Factor Assmnt - Choose All That Apply Any of the Below Risk Factors Present?: No Other Risk Factors: Yes Each Risk Factor Represents 3 Points: Age 75 years or older Other congenital or acquired thrombophilia - If yes, enter type in comment: No Thrombosis Risk Factor Assessment Total Risk Factor Score: 3 Thrombosis Risk Factor Assessment Level: Moderate Risk
[2024-01-03] MEDS: IPRATROPIUM 0.5 MG/2.5 ML NEBU INHALATION SCH (19:37)
[2024-01-03] MEDS: FORMOTEROL FUMARATE 20 MCG/2 ML NEBU INHALATION SCH (19:37)
[2024-01-03] MEDS: CITALOPRAM HYDROBROMIDE 20 MG TAB PO SCH (21:29)
[2024-01-03] MEDS: AMIODARONE 200 MG TAB PO SCH (21:29)
[2024-01-04] MEDS ORDERED: NON FORMULARY DRUG (Umeclidinium Brm/Vilanterol Tr [Anoro Ellipta 62.5-25 Mcg Inh] 1 EACH INHALATION SCH (08:00)
[2024-01-04 08:06] LABS: Basophils % (A) 0 %; Eosinophils # (A) 0.2 k/uL (0-0.7); Eosinophils % (A) 2 %; HGB 10.8 gm/dL (13.0-17.5); Lymphocytes # (A) 0.5 k/uL (1.0-4.8); Lymphocytes % (A) 5 %; Mean Platelet Volume 9.1; Monocytes # (A) 0.6 k/uL (0-1.0); Monocytes % (A) 6 %; Neutrophils # (A) 7.5 k/uL (1.3-7.7); Neutrophils % (A) 85 %; Platelet Count 173 k/uL (150-450); WBC 8.9 k/uL (3.8-10.6)
[2024-01-04 08:17] LABS: African American GFR (CKD) 73 (>60 ml/min/1.73 sqM); Anion Gap 3 mmol/L; Blood Urea Nitrogen 18 mg/dL (9-20); Carbon Dioxide 25 mmol/L (22-30); Chloride 108 mmol/L (98-107); Glucose 96 mg/dL (74-99); Non-African American GFR(CKD) 64 (>60 ml/min/1.73 sqM); Potassium 4.2 mmol/L (3.5-5.1); Sodium 136 mmol/L (137-145)
--- NOTE | 2024-01-04 09:13 | P.PN ---
Subjective HISTORY OF PRESENT ILLNESS: This is a 88-year-old male with a past medical history significant for paroxysmal atrial fibrillation, COPD, GERD, anxiety, and depression. Patient follows in the office with Dr. Mohamud. We have been asked to see the patient in consultation for bradycardia. Patient examined at the bedside. Patient states yesterday he was walking to the garage when he lost his balance and fell. He denied any dizziness or lightheadedness prior to falling. He denied any chest pain or pressure. Denies any shortness of breath. He denies any loss of consciousness. Telemetry reveals sinus mechanism with a heart rate greater than 50. There has been no significant bradycardia, arrhythmias, or heart block noted. He states he is feeling well this morning and is hoping to be discharged home. DIAGNOSTICS: - EKG reveals sinus mechanism with right bundle branch block. - Laboratory data: WBC 8.5. Hemoglobin 11.3. Platelet count 169. Sodium 137. Potassium 4.5. BUN 23. Creatinine 1.19. Lactic acid 1.9. - Current home cardiac medications include Xarelto 20 mg daily and amiodarone 200 mg at night. - Most recent echocardiogram obtained in the office in November 2023 revealed ejection fraction 55%, mild MR, mild TR 01/04/2024 Patient examined this morning at the bedside. Patient denies any chest pain or pressure. He denies any shortness of breath. Vital signs are stable. Telemetry reveals sinus mechanism with no significant bradycardia. PHYSICAL EXAM: VITAL SIGNS: Reviewed. GENERAL: Well-developed in no acute distress. HEENT: Head is normocephalic. Pupils are equal, round. Sclerae anicteric. Mucous membranes of the mouth are moist. Neck supple. No JVD or thyromegaly LUNGS: Respirations even and unlabored. Lungs essentially clear to auscultation bilaterally. HEART: Regular rate and rhythm. S1 and S2 heard. ABDOMEN: Soft. Nondistended. Nontender. EXTREMITIES: Normal range of motion. No clubbing or cyanosis. Peripheral pulses intact. No lower extremity edema NEUROLOGIC: Awake and alert. Oriented x 3. ASSESSMENT: Status post mechanical fall without evidence of syncope Sinus bradycardia, asymptomatic Possible right humerus fracture Paroxysmal atrial fibrillation History of COPD History of GERD History of anxiety History of depression PLAN: No need to repeat echocardiogram as this was performed last month in the office Resume amiodarone From a cardiology standpoint, continue anticoagulation No further inpatient recommendations from a cardiac standpoint Patient may be discharged home today and follow-up in the office with Dr. Mohamud Nurse practitioner note has been reviewed by physician. Signing provider agrees with the documented findings, assessment, and plan of care documented by CONTINUOUS ABSORPTION PROCESS OPERATOR as a scribe. Objective - Vital Signs Vital signs: Vital Signs Temp 97.8 F 01/04/24 07:00 Pulse 68 01/04/24 08:03 Resp 18 01/04/24 07:00 BP 128/66 01/04/24 07:00 Pulse Ox 93 L 01/04/24 07:00 FiO2 Intake & Output 01/03/24 01/04/24 01/04/24 18:59 06:59 18:59 Output Total 150 800 Balance -150 -800 Output: Urine 150 800 Other: Voiding Method Urinal Urinal # Voids 1 2 - Labs CBC & Chem 7: 01/04/24 07:10 01/04/24 07:10 Labs: Abnormal Lab Results - Last 24 Hours (Table) 01/04/24 01/04/24 Range/Units 07:10 07:10 RBC 3.10 L (4.30-5.90) m/uL Hgb 10.8 L (13.0-17.5) gm/dL Hct 31.0 L (39.0-53.0) % Lymphocytes # 0.5 L (1.0-4.8) k/uL Sodium 136 L (137-145) mmol/L Chloride 108 H (98-107) mmol/L
[2024-01-04] MEDS: MONTELUKAST 10 MG TAB PO SCH (09:28)
--- NOTE | 2024-01-04 09:58 | P.CNOR ---
History of Present Illness - [facility] Consult date: 01/04/24 Consult reason: fracture (Right proximal humerus.) History of present illness: This is an 88-year-old male with history of mechanical ground-level fall, landing directly on the right shoulder. He states that he missed the final step in his garage and landed on the shoulder. He complains of some mild neck pain a nd right hip pain as well. He was brought to the emergency department and on evaluation in x-ray he is found to have a humeral neck fracture of the right shoulder. He has history of hemiarthroplasty of the right hip in the past as well as an open reduction internal fixation of the left hip in the past. He is admitted for bradycardia and we are consulted for orthopedic evaluation of his right shoulder. Past Medical History Past Medical History: Atrial Fibrillation, Cancer, COPD, GERD/Reflux, Pneumonia, Pulmonary Embolus (PE) Additional Past Medical History / Comment(s): IBS, hx kidney stones, hx basal cell skin cancer,rectal cancer Dx January-last chemo/radiation 04-17-16, HAS OSTOMY History of Any Multi-Drug Resistant Organisms: None Reported Past Surgical History: Bowel Resection, Joint Replacement, Orthopedic Surgery Additional Past Surgical History / Comment(s): fx left tibia/fibula repair with 19 screws and 2 plates, fx lt femur repair with plate and 3 screws, removal of skin cancer, yusuf. cataract surgery. DEV. SEPTUM SX, COLONOSCOPY, RT PARTIAL HIP REPLACEMENT 04/17/19, OSTOMY Past Anesthesia/Blood Transfusion Reactions: No Reported Reaction Past Psychological History: Anxiety, Depression Smoking Status: Never smoker Past Alcohol Use History: None Reported Additional Past Alcohol Use History / Comment(s): quit 1984 Past Drug Use History: None Reported - Past Family History Mother Family Medical History: No Reported History Additional Family Medical History / Comment(s): alcoholism, at age 54 Father History Unknown: Yes Brother(s) Additional Family Medical History / Comment(s): heart problems-5 stents Medications and Allergies Home Medications Medication Instructions Recorded Confirmed Type Montelukast [Singulair] 10 mg PO DAILY 12/22/17 01/02/24 History Umeclidinium Brm/Vilanterol Tr 1 puff INHALATION RT-DAILY 12/22/17 01/02/24 History [Anoro Ellipta 62.5-25 Mcg INH] Citalopram Hydrobromide [CeleXA] 20 mg PO HS 12/20/19 01/02/24 History Rivaroxaban [Xarelto] 20 mg PO DAILY #30 tab 12/21/19 01/02/24 Rx Albuterol Inhaler [Ventolin Hfa 2 puff INHALATION RT-Q4H PRN 01/02/24 01/02/24 History Inhaler] Amiodarone [Cordarone] 200 mg PO HS 01/02/24 01/02/24 History Omeprazole 20 mg PO DAILY 01/02/24 01/02/24 History Vitamin D(Unknown Dose) 1 tab PO HS 01/02/24 01/02/24 History Allergies Allergy/AdvReac Type Severity Reaction Status Date / Time No Known Allergies Allergy Verified 01/02/24 22:30 Physical Examination This is a pleasant 88-year-old male in no acute distress. He is alert and oriented x 3. Exam of the head neck revealed no obvious deformity. He has fairly good cervical spine motion without difficulty. There is no tenderness to palpation about the spinous processes. He does have some tenderness to the right paraspinal musculature. Exam of the upper extremities reveals a sling in place to the right arm. He has mild swelling to the shoulder. He has full wrist and finger motion without difficulty. Radial pulse is +2/4. Neurovascular status to the right upper extremity is intact. The exam of the left upper extremity is unremarkable. Exam of the lower extremities reveals no obvious deformity or shortening. There is slight tenderness to palpation about the trochanteric region of the right hip. He is able to lift each leg off the bed independently. There is no pain with logroll or internal/external rotation of the hips. He has full foot and ankle motion bilaterally. Neurovascular status to the lower extremities is intact. Results Head and C-spine CT scan reveals degenerative changes throughout the cervical spine with no evidence of fracture or dislocation. X-rays of the right shoulder reveal a minimally displaced, impacted humeral neck fracture. X-rays of the pelvis and right hip reveal hip components in good position and alignment without evidence of loosening. There is no acute fracture noted. Left hip reveals leg screw with plate with no evidence of loosening. No obvious fracture noted to the left hip. No pelvis fractures noted. - Labs Labs: Abnormal Lab Results - Last 24 Hours (Table) 01/04/24 01/04/24 Range/Units 07:10 07:10 RBC 3.10 L (4.30-5.90) m/uL Hgb 10.8 L (13.0-17.5) gm/dL Hct 31.0 L (39.0-53.0) % Lymphocytes # 0.5 L (1.0-4.8) k/uL Sodium 136 L (137-145) mmol/L Chloride 108 H (98-107) mmol/L H & H 01/02/24 01/03/24 01/04/24 Range/Units 19:55 07:03 07:10 Hgb 13.3 11.3 L 10.8 L (13.0-17.5) gm/dL Hct 40.0 34.1 L 31.0 L (39.0-53.0) % Coagulation 01/02/24 Range/Units 19:55 INR 1.2 H (<1.2) Result Diagrams: 01/04/24 07:10 01/04/24 07:10 Assessment and Plan (1) Cervicalgia Current Visit: Yes Status: Acute Code(s): M54.2 - CERVICALGIA SNOMED Code(s): 37159274 (2) Bradycardia Current Visit: Yes Status: Acute Code(s): R00.1 - BRADYCARDIA, UNSPECIFIED SNOMED Code(s): 74035101 (3) Fall Current Visit: Yes Status: Acute Code(s): W19.XXXA - UNSPECIFIED FALL, INITIAL ENCOUNTER SNOMED Code(s): 1832909 (4) Right humeral fracture Current Visit: Yes Status: Acute Code(s): S42.301A - UNSP FRACTURE OF SHAFT OF HUMERUS, RIGHT ARM, INIT SNOMED Code(s): 18294500 Plan: The clinical and radiographic findings are discussed with the patient. With regard to the right proximal humerus fracture it is discussed that conservative treatment would be the treatment of choice. He will continue with the sling. He may come out of the sling for gentle pendulum exercises and elbow range of motion. He is to follow-up in 2 to 3 weeks for follow-up x-rays. With regard to his neck pain, it is discussed that he likely has a paraspinal strain. Moist heat or ice may help with pain. He may also wear a soft collar for comfort as needed. With regard to the right hip pain we discussed that he likely has a contusion to the area. There are no fractures noted. Symptoms will likely improve over time. He is to report any new symptoms. May be discharged to inpatient rehab when cleared medically and follow-up with our office as instructed.
[2024-01-04] MEDS: RIVAROXABAN 15 MG TAB PO SCH (10:44)
--- NOTE | 2024-01-04 14:36 | P.PN ---
Subjective Progress Note Date: 01/04/24 88-year-old had a mechanical fall without any syncope and has a fracture of the left humerus presently has a sling and no other fractures at this time. Patient was eval by cardiology because of sinus bradycardia although this is only sinus Bradycardia which is not required any intervention and patient did have a syncope. Patient lives at [facility] and is complaining of generalized weakness. Patient does not have any lightheadedness at this time patient urine is significantly abnormal with elevated white count, significantly elevated WBC in the urine and significant RBC in the urine. Patient denies any UTI symptoms Patient serum creatinine is 1.1 close to his baseline. Patient has history of atrial fibrillation paroxysmal, on anticoagulation with Xarelto 01/04/2024 Patient is evaluated today on the medical floor. Cardiology has evaluated the patient no further workup for the bradycardia and his heart rate has improved he is on normal sinus rhythm. He is not complaining of any dizziness or lightheadedness. He is currently in a sling for the right humerus fracture. He is reporting mild pain however is requesting additional pain medication besides the Tylenol and tramadol has been added. Orthopedics is recommending rehabilitation and no surgical intervention. Patient's urine continues to be slightly blood-tinged more of a tea colored today. Additionally there is some black tarry stool noted in the ostomy bag which will be sent for Hemoccult testing. Hemoglobin is at 10.8 and after cardiology has evaluate the patient they recommending to hold the Xarelto overnight and repeat CBC in the morning. Patient's family at the bedside would like to just follow-up with Dr. Contreras outpatient if hemoglobin remains stable. He will also follow up with urology. Review of Systems Constitutional: Denied any fatigue denied any fever. Cardio vascular: denied any chest pain, palpitations Gastrointestinal: denied any nausea, vomiting, diarrhea Pulmonary: Denied any shortness of breath cough Neurologic denied any new focal deficits All inpatient medications were reviewed and appropriate changes in these medications as dictated in the interval history and assessment and plan. PHYSICAL EXAMINATION: GENERAL: The patient is alert and oriented x3, not in any acute distress. Well developed, well nourished. HEENT: Pupils are round and equally reacting to light. EOMI. No scleral icterus. No conjunctival pallor. Normocephalic, atraumatic. No pharyngeal erythema. No thyromegaly. CARDIOVASCULAR: S1 and S2 present. No murmurs, rubs, or gallops. PULMONARY: Chest is clear to auscultation, no wheezing or crackles. ABDOMEN: Soft, nontender, nondistended, normoactive bowel sounds. No palpable organomegaly. Has a colostomy MUSCULOSKELETAL: No joint swelling or deformity. EXTREMITIES: No cyanosis, clubbing, or pedal edema. NEUROLOGICAL: Gross neurological examination did not reveal any focal deficits. SKIN: No rashes. Assessment and plan 1 fall patient had a mechanical fall with fracture in the right humerus continue with the sling pain management in place with tylenol and tramadol. Patient recommended for [facility] and social work in tomorrow for discharge planning. -Asymptomatic sinus bradycardia no further additional intervention at this time -Asymptomatic bacteriuria would not require any antibiotics -Paroxysmal atrial fibrillation presently rate controlled in sinus rhythm with present home medications -Leukocytosis secondary to fall which resolved at this time without any antibiotics -Hematuria, mild patient will need to see urology outpatient for cystoscopy, additionally will hold xarelto overnight and monitor for improvement in the hematuria and monitor CBC. -COPD without any acute exacerbation -Depression -Anxiety -History of basal cell carcinoma in remission -History of rectal cancer status post chemoradiation is in remission, patient has a colostomy DVT prophylaxis: Patient is already on anticoagulation for atrial fibrillation GI prophylaxis protonix Full Code The impression and plan of care has been dictated by Usha Avilez Nurse Practitioner as directed. Dr. Elisa MD I have performed a history and physical examination and medical decision making of this patient, discussed the same with the dictator, and agree with the dictators assessment and plan as written, documented as a scribe. Based on total visit time, I have performed more than 50% of this visit. Objective - Vital Signs Vital signs: Vital Signs Temp 97.8 F 01/04/24 07:00 Pulse 68 01/04/24 08:03 Resp 18 01/04/24 07:00 BP 128/66 01/04/24 07:00 Pulse Ox 93 L 01/04/24 07:00 FiO2 Intake & Output 01/03/24 01/04/24 01/04/24 18:59 06:59 18:59 Output Total 150 800 Balance -150 -800 Output: Urine 150 800 Other: Voiding Method Urinal Urinal # Voids 1 2 - Labs CBC & Chem 7: 01/04/24 07:10 02/18/24 07:10 Labs: Abnormal Lab Results - Last 24 Hours (Table) 01/04/24 01/04/24 Range/Units 07:10 07:10 RBC 3.10 L (4.30-5.90) m/uL Hgb 10.8 L (13.0-17.5) gm/dL Hct 31.0 L (39.0-53.0) % Lymphocytes # 0.5 L (1.0-4.8) k/uL Sodium 136 L (137-145) mmol/L Chloride 108 H (98-107) mmol/L Assessment and Plan Time with Patient: Less than 30
[2024-01-04] MEDS: traMADol 50 MG TAB PO PRN (21:15)
[2024-01-05 11:01] LABS: Basophils # (A) 0.06 X 10*3/uL (0.00-0.10); Basophils % (A) 0.6 %; HCT 32.1 % (39.6-50.0); HGB 10.4 g/dL (13.0-17.0); Lymphocytes # (A) 0.63 X 10*3/uL (0.90-5.00); Lymphocytes % (A) 6.1 %; MCH 32.6 pg (27.0-32.0); MCHC 32.4 g/dL (32.0-37.0); MCV 100.6 FL (80.0-97.0); Mean Platelet Volume 11.3 FL (9.5-12.2); Monocytes # (A) 1.02 X 10*3/uL (0.20-1.00); Monocytes % (A) 9.9 %; NRBC Per 100 WBC 0 X 10*3/uL (0.00-0.01); Neutrophils # (A) 8.48 X 10*3/uL (1.80-7.70); Platelet Count 180 X 10*3/uL (140-440); RBC 3.19 X 10*6/uL (4.40-5.60); RDW 13.2 % (11.5-14.5); WBC 10.33 X 10*3/uL (4.50-10.00)
[2024-01-05 11:11] LABS: BUN/Creat Ratio 11.36 Ratio (12.00-20.00); Blood Urea Nitrogen 12.5 mg/dL (9.0-27.0); Carbon Dioxide 25.5 mmol/L (21.6-31.8); Chloride 106 mmol/L (96-109); Glucose 108 mg/dL (70-110); Sodium 141 mmol/L (135-145)
[2024-01-06] MEDS: IPRATROPIUM-ALBUTEROL 3 ML NEB INHALATION PRN (07:51)
[2024-01-06 08:53] LABS: Basophils # (A) 0.07 X 10*3/uL (0.00-0.10); Basophils % (A) 0.8 %; Eosinophils # (A) 0.18 X 10*3/uL (0.04-0.35); HCT 31.2 % (39.6-50.0); HGB 10.4 g/dL (13.0-17.0); Lymphocytes # (A) 0.55 X 10*3/uL (0.90-5.00); Lymphocytes % (A) 6.1 %; MCH 33.7 pg (27.0-32.0); MCHC 33.3 g/dL (32.0-37.0); Mean Platelet Volume 11.4 FL (9.5-12.2); Monocytes # (A) 0.92 X 10*3/uL (0.20-1.00); Monocytes % (A) 10.2 %; NRBC Per 100 WBC 0 X 10*3/uL (0.00-0.01); Neutrophils # (A) 7.28 X 10*3/uL (1.80-7.70); Neutrophils % (A) 80.3 %; Platelet Count 189 X 10*3/uL (140-440); RBC 3.09 X 10*6/uL (4.40-5.60); RDW 13.3 % (11.5-14.5); WBC 9.05 X 10*3/uL (4.50-10.00)
--- NOTE | 2024-01-06 21:06 | P.PN ---
Subjective Progress Note Date: 01/06/24 88-year-old had a mechanical fall without any syncope and has a fracture of the left humerus presently has a sling and no other fractures at this time. Patient was eval by cardiology because of sinus bradycardia although this is only sinus Bradycardia which is not required any intervention and patient did have a syncope. Patient lives at [facility] and is complaining of generalized weakness. Patient does not have any lightheadedness at this time patient urine is significantly abnormal with elevated white count, significantly elevated WBC in the urine and significant RBC in the urine. Patient denies any UTI symptoms Patient serum creatinine is 1.1 close to his baseline. Patient has history of atrial fibrillation paroxysmal, on anticoagulation with Xarelto 01/04/2024 Patient is evaluated today on the medical floor. Cardiology has evaluated the patient no further workup for the bradycardia and his heart rate has improved he is on normal sinus rhythm. He is not complaining of any dizziness or lightheadedness. He is currently in a sling for the right humerus fracture. He is reporting mild pain however is requesting additional pain medication besides the Tylenol and tramadol has been added. Orthopedics is recommending rehabilitation and no surgical intervention. Patient's urine continues to be slightly blood-tinged more of a tea colored today. Additionally there is some black tarry stool noted in the ostomy bag which will be sent for Hemoccult testing. Hemoglobin is at 10.8 and after cardiology has evaluate the patient they recommending to hold the Xarelto overnight and repeat CBC in the morning. Patient's family at the bedside would like to just follow-up with Dr. Contreras outpatient if hemoglobin remains stable. He will also follow up with urology. 01/06/2024 Patient is unable to be discharged until Friday requires 3 night inpatient hospital stay. Hemoglobin remains stable. Xarelto was resumed. Patient has no acute complaints. Review of Systems Constitutional: Denied any fatigue denied any fever. Cardio vascular: denied any chest pain, palpitations Gastrointestinal: denied any nausea, vomiting, diarrhea Pulmonary: Denied any shortness of breath cough Neurologic denied any new focal deficits All inpatient medications were reviewed and appropriate changes in these medications as dictated in the interval history and assessment and plan. PHYSICAL EXAMINATION: GENERAL: The patient is alert and oriented x3, not in any acute distress. Well developed, well nourished. HEENT: Pupils are round and equally reacting to light. EOMI. No scleral icterus. No conjunctival pallor. Normocephalic, atraumatic. No pharyngeal erythema. No thyromegaly. CARDIOVASCULAR: S1 and S2 present. No murmurs, rubs, or gallops. PULMONARY: Chest is clear to auscultation, no wheezing or crackles. ABDOMEN: Soft, nontender, nondistended, normoactive bowel sounds. No palpable organomegaly. Has a colostomy MUSCULOSKELETAL: No joint swelling or deformity. EXTREMITIES: No cyanosis, clubbing, or pedal edema. NEUROLOGICAL: Gross neurological examination did not reveal any focal deficits. SKIN: No rashes. Assessment and plan 1 fall patient had a mechanical fall with fracture in the right humerus continue with the sling pain management in place with tylenol and tramadol. Patient recommended for [facility] and social work in tomorrow for discharge planning. -Asymptomatic sinus bradycardia no further additional intervention at this time -Asymptomatic bacteriuria would not require any antibiotics -Paroxysmal atrial fibrillation presently rate controlled in sinus rhythm with present home medications -Leukocytosis secondary to fall which resolved at this time without any antibiotics -Hematuria, mild patient will need to see urology outpatient for cystoscopy, ad ditionally will hold xarelto overnight and monitor for improvement in the hematuria and monitor CBC. -COPD without any acute exacerbation -Depression -Anxiety -History of basal cell carcinoma in remission -History of rectal cancer status post chemoradiation is in remission, patient has a colostomy DVT prophylaxis: Patient is already on anticoagulation for atrial fibrillation GI prophylaxis protonix Full Code The impression and plan of care has been dictated by Usha Avilez, Nurse Practitioner as directed. Dr. Elisa MD I have performed a history and physical examination and medical decision making of this patient, discussed the same with the dictator, and agree with the dictators assessment and plan as written, documented as a scribe. Based on total visit time, I have performed more than 50% of this visit. Objective - Vital Signs Vital signs: Vital Signs Temp 98.2 F 01/06/24 19:11 Pulse 80 01/06/24 19:58 Resp 15 01/06/24 19:11 BP 103/56 01/06/24 19:11 Pulse Ox 95 01/06/24 19:11 FiO2 Intake & Output 01/06/24 01/06/24 01/07/24 06:59 18:59 06:59 Intake Total 354 Balance 354 Intake: Oral 354 Other: Voiding Method Toilet Toilet Urinal Urinal # Voids 1 1 # Bowel Movements 1 1 - Labs CBC & Chem 7: 01/06/24 05:32 01/05/24 06:14 Labs: Abnormal Lab Results - Last 24 Hours (Table) 01/06/24 Range/Units 05:32 RBC 3.09 L (4.40-5.60) X 10*6/uL Hgb 10.4 L (13.0-17.0) g/dL Hct 31.2 L (39.6-50.0) % MCV 101.0 H (80.0-97.0) FL MCH 33.7 H (27.0-32.0) pg Immature Gran # 0.05 H (0.00-0.04) X 10*3/uL Lymphocytes # 0.55 L (0.90-5.00) X 10*3/uL Assessment and Plan Time with Patient: Less than 30
[2024-01-07 08:56] VITALS: RESP 16
--- NOTE | 2024-01-07 13:25 | P.DS ---
Providers Date of admission: 01/04/24 12:33 Attending physician: Luc Moore Consults: 01/02/24 21:51 Consult Physician Routine Consulting Provider: Vince Cárdenas Consult Reason/Comments: caesar Do you want consulting provider notified?: Yes 01/03/24 12:04 Consult Physician Routine Consulting Provider: Dave Walsh Consult Reason/Comments: humerus fx Do you want consulting provider notified?: Yes Primary care physician: [facility] Course: Final Diagnosis -mechanical fall with fracture in the right humerus continue with the sling pain management in place with tylenol and tramadol. Patient recommended for ALFIE -Asymptomatic sinus bradycardia no further additional intervention at this time -Asymptomatic bacteriuria would not require any antibiotics -Paroxysmal atrial fibrillation presently rate controlled in sinus rhythm with present home medications -Leukocytosis secondary to fall which resolved at this time without any antibiotics -Hematuria, mild patient will need to see urology outpatient for cystoscopy hemoglobin stable. -COPD without any acute exacerbation -Depression -Anxiety -History of basal cell carcinoma in remission -History of rectal cancer status post chemoradiation is in remission, patient has a colostomy Discharge disposition Patient is stable for discharge to subacute rehab. Hemoglobin has remained stable and recommend to repeat labs in 2 to 3 days. Patient needs to follow-up with urology office regarding the hematuria for further evaluation and possible cystoscopy. Additionally patient to follow-up with his plastic surgery manager outpatient. Orthopedics would like to see patient in the office in 2 to 3 weeks for repeat x-rays patient should continue with the sling to the right arm and can remove for pendulum and elbow range of motion exercises. Otherwise should remain in the sling and continue with supportive care and pain management alternating Tylenol and tramadol. Patient should continue on a bowel regimen while using narcotics for pain management. Additionally he should continue with the incentive spirometer 10 times an hour while awake. Hospital Course This is an 88-year-old male with medical history of paroxysmal atrial fibrillation anticoagulated with Xarelto, COPD, depression anxiety, basal cell carcinoma in remission and a history of rectal cancer status post chemoradiation with a colostomy patient is in remission for this as well. He presents to the hospital secondary to a mechanical fall with fracture to the right humerus he came into the hospital for evaluation by orthopedics and pain management. He is a nonsurgical candidate he has been placed in a sling with recommendations as above. There was also concern for hematuria patient had a hemoglobin of 13.3 on admission and has dropped to 10.4 however has remained stable with no signs of active bleeding. Xarelto was held however due to the risk versus benefit as patient does maintain in chronic atrial fibrillation we would recommend that he continue the Xarelto on discharge with further monitoring for the hematuria and follow-up with urology outpatient. hemeOccult was negative. family and patient are agreeable to this plan. This was discussed in extent at the bedside. Patient was noted to be in bradycardia on admission he is not complaining of any dizziness or lightheadedness and cardiology did evaluate the patient. He has no chest pain or shortness of breath no loss of consciousness. His heart rate is above 50 and there has been no heart block noted. Cardiology is recommending to follow-up in the office with Dr. Mohamud in 1 to 2 weeks. Cardiology is recommending patient to resume amiodarone and continue on discharge. Most recent hemoglobin of 10.4. Renal function is within normal limits. Please see medication reconciliation for list of current medication. Thank you for allowing us to participate in care of this patient. The impression and plan of care has been dictated by Usha Avilez Nurse Practitioner as directed. Dr. Elisa MD I have performed a history and physical examination and medical decision making of this patient, discussed the same with the dictator, and agree with the dictators assessment and plan as written, documented as a scribe. Based on total visit time, I have performed more than 50% of this visit. Patient Condition at Discharge: Good Plan - Discharge Summary Discharge Rx Participant: No New Discharge Prescriptions: New Famotidine [Pepcid] 20 mg PO DAILY #30 tablet traMADol HCl [Ultram] 50 mg PO QID PRN #4 tab PRN Reason: Pain Continue Umeclidinium Brm/Vilanterol Tr [Anoro Ellipta 62.5-25 Mcg INH] 1 puff INHALATION RT-DAILY Montelukast [Singulair] 10 mg PO DAILY Citalopram Hydrobromide [CeleXA] 20 mg PO HS Rivaroxaban [Xarelto] 20 mg PO DAILY #30 tab Albuterol Inhaler [Ventolin Hfa Inhaler] 2 puff INHALATION RT-Q4H PRN PRN Reason: Shortness Of Breath Amiodarone [Cordarone] 200 mg PO HS Vitamin D(Unknown Dose) 1 tab PO HS Omeprazole 20 mg PO DAILY Discharge Medication List Montelukast [Singulair] 10 mg PO DAILY 12/22/17 [History] Umeclidinium Brm/Vilanterol Tr [Anoro Ellipta 62.5-25 Mcg INH] 1 puff INHALATION RT-DAILY 12/22/17 [History] Citalopram Hydrobromide [CeleXA] 20 mg PO HS 12/20/19 [History] Rivaroxaban [Xarelto] 20 mg PO DAILY #30 tab 12/21/19 [Rx] Albuterol Inhaler [Ventolin Hfa Inhaler] 2 puff INHALATION RT-Q4H PRN 01/02/24 [History] Amiodarone [Cordarone] 200 mg PO HS 01/02/24 [History] Omeprazole 20 mg PO DAILY 01/02/24 [History] Vitamin D(Unknown Dose) 1 tab PO HS 01/02/24 [History] Famotidine [Pepcid] 20 mg PO DAILY #30 tablet 01/05/24 [Rx] traMADol HCl [Ultram] 50 mg PO QID PRN #4 tab 01/05/24 [Rx] Follow up Appointment(s)/Referral(s): Quentin Contreras MD [Medical Doctor] - 1 Week Solomon Schmid DO [Primary Care Provider] - 1 Week Silverio Martino MD [STAFF PHYSICIAN] - 1 Week Dave Walsh MD [Medical Doctor] - 2 Weeks Ambulatory/Diagnostic Orders: Basic Metabolic Panel [LAB.AMB] Location: None Selected Complete Blood Count w/diff [LAB.AMB] Time Frame: 3 Days, Location: None Selected Patient Instructions/Handouts: Arm Fracture in Adults (ED), Fall Prevention for Older Adults (ED) Activity/Diet/Wound Care/Special Instructions: Continue with sling to the right arm per orthopedics recommendations. He may come out of the sling for gentle pendulum exercises and elbow range of motion and patient should follow-up in the office in 2 to 3 weeks for repeat x-rays. Patient continues to report neck pain orthopedics is recommending conservative management with moist heat or ice. Patient may also wear a soft collar for comfort as needed. Patient's hemoglobin has remained stable and recommending to continue on Xarelto at this time. Hematuria is essentially stable and is not grossly bloody I would recommend to monitor and follow-up with urology outpatient. Repeat labs in 2 to 3 days. Dark stool noted in the colostomy bag was changed in color is a normal brown Hemoccult was negative. If this is a concern or notice of tarry stool in ostomy recommend to follow-up with patient's surgeon Dr. Contreras Discharge Disposition: TRANSFER TO SNF/ECF
[2024-01-07 15:43] VITALS: BP 125/67; PULSE 83; TEMP 98.1
[2024-01-08] MEDS ORDERED: PANTOPRAZOLE 40 MG TABLET PO SCH (07:30)
== END 2024-01-07 15:42 | DRG 563 ==
LOC: EC 13:51 → 6NMEDSUR 21:53 → OBSVTOIN 01-04 12:33
PROVIDERS: ADMIT Hospitalist; ATTEND Hospitalist
DX: S42.211A Unspecified displaced fracture of surgical neck of right humerus, initial encounter for closed fracture (principal); R53.1 Weakness; R00.1 Bradycardia, unspecified; I48.0 Paroxysmal atrial fibrillation; K21.9 Gastro-esophageal reflux disease without esophagitis; M54.2 Cervicalgia; M25.551 Pain in right hip; R31.9 Hematuria, unspecified; Z79.01 Long term (current) use of anticoagulants; R82.71 Bacteriuria; F32.A Depression, unspecified; K58.9 Irritable bowel syndrome, unspecified; J44.9 Chronic obstructive pulmonary disease, unspecified; F41.9 Anxiety disorder, unspecified; Z85.828 Personal history of other malignant neoplasm of skin; Z86.711 Personal history of pulmonary embolism; Z85.048 Personal history of other malignant neoplasm of rectum, rectosigmoid junction, and anus; Z92.21 Personal history of antineoplastic chemotherapy; Z92.3 Personal history of irradiation; Z93.3 Colostomy status; W10.9XXA Fall (on) (from) unspecified stairs and steps, initial encounter; Z98.42 Cataract extraction status, left eye; Z98.41 Cataract extraction status, right eye; Z87.19 Personal history of other diseases of the digestive system; Z85.528 Personal history of other malignant neoplasm of kidney
CPT/HCPCS: 36415; 70450; 72125; 73502; 80048; 80053; 81001; 82272; 83605; 83690; 83735; 84100; 84484; 85025; 85610; 85730; 93005; 94640; 94760; 96361; 96374; 96375; 99285

== ENCOUNTER → 2024-02-20 | Outpatient (CLI) | payer MEDICARE, OTHER ==
[2024-02-20 11:02] LABS: African American GFR (CKD) 67 (>60 ml/min/1.73 sqM); Blood Urea Nitrogen 17 mg/dL (9-20); Non-African American GFR(CKD) 58 (>60 ml/min/1.73 sqM)
--- NOTE | 2024-02-21 13:17 | CT ---
EXAMINATION TYPE: CT urogram wo/w con DATE OF EXAM: 02/20/2024 COMPARISON: 07/12/2020 HISTORY: Gross hematuria, hx colorectal ca, pt not able to place arms above head CT DLP: 1614.50 mGycm Automated exposure control for dose reduction was used. Contrast: 80 mL [id number] Technique: Axial images 3 mm thick sections. Reconstructed images in coronal and sagittal plane. Thre e-D reconstructed images through the renal collecting systems was performed by the technologist on a separate computer. Pre and postcontrast imaging is performed. FINDINGS: Limited CT sections were obtained through the lung bases. Some minimal compressive atelectasis may be within the dependent lung bases. Progress CT abdomen: There is a 2.1 cm left hepatic lobe cyst. Sple en is unremarkable. Adrenal glands are normal. Kidneys aren't normal without masses or hydronephrosis . Punctate calcifications at the inferior pole right kidney measuring 0.2 cm. There is a nonobstructi ng 0.6 cm calcification posterior lateral left mid kidney. Abdominal aorta contains calcification. Ma ximum AP diameter of 2.5 cm. Previously cavus unremarkable. There is a large left anterolateral abdominal wall hernia containing multiple loops of nondilated bow el. This extends to nearly the level of the hip. Fecal debris is within the colon. The appendix as vi sualized is normal. Urinary bladder is normal. There is a calcification at the expected right uretero vesical junction measuring 0.7 cm. Bilateral hip prostheses are present causing limitation of the lower pelvis. On delayed images small cortical renal cysts within the right kidney are identified. No hydronephrosi s or hydroureter is evident. Three-D reconstructed images: Renal calyces infundibula and renal pelves are normal. Ureters appear n ormal to the pelvis. There is some tortuosity of the mid right ureter. IMPRESSION: 1. THERE MAY BE A DISTAL RIGHT URETERAL STONE WITHOUT OBSTRUCTION. 2. NONOBSTRUCTING RENAL STONES DISCUSSED ABOVE. 3. 3-D RECONSTRUCTED RENAL COLLECTING SYSTEM APPEARS UNREMARKABLE.
== END | disposition home or self-care (01) ==
LOC: RADCTMAIN 10:06
PROVIDERS: ATTEND Urology
DX: N20.0 Calculus of kidney (principal); R31.0 Gross hematuria; Z96.643 Presence of artificial hip joint, bilateral; Z85.038 Personal history of other malignant neoplasm of large intestine
CPT/HCPCS: 82565; 84520; 74178; 36415; 74400; Q9967

== ENCOUNTER → 2024-03-01 | Outpatient (CLI) | payer MEDICARE, OTHER | END | disposition home or self-care (01) | LOC: LABWHC1 12:58 | PROVIDERS: ATTEND Internal Medicine Cardiovascular Disease | DX: I48.3 Typical atrial flutter (principal) | CPT/HCPCS: 36415; 84443; 84450; 84460 ==

== ENCOUNTER → 2024-03-23 | Outpatient (CLI) | payer MEDICARE, OTHER ==
[2024-03-23 15:28] LABS: BUN/Creat Ratio 12.77 Ratio (12.00-20.00); Blood Urea Nitrogen 16.6 mg/dL (9.0-27.0); Calcium 10.3 mg/dL (8.7-10.3); Chloride 104 mmol/L (96-109); Glucose 123 mg/dL (70-110); Potassium 4.1 mmol/L (3.5-5.5); Sodium 141 mmol/L (135-145)
[2024-03-23 15:54] LABS: Basophils # (A) 0.06 X 10*3/uL (0.00-0.10); Basophils % (A) 0.8 %; Eosinophils # (A) 0.08 X 10*3/uL (0.04-0.35); Eosinophils % (A) 1.1 %; HCT 44.2 % (39.6-50.0); HGB 13.9 g/dL (13.0-17.0); Lymphocytes # (A) 0.46 X 10*3/uL (0.90-5.00); Lymphocytes % (A) 6.4 %; MCH 31.7 pg (27.0-32.0); MCHC 31.4 g/dL (32.0-37.0); MCV 100.9 FL (80.0-97.0); Mean Platelet Volume 11.2 FL (9.5-12.2); Monocytes # (A) 0.54 X 10*3/uL (0.20-1.00); Monocytes % (A) 7.6 %; NRBC Per 100 WBC 0 X 10*3/uL (0.00-0.01); Neutrophils # (A) 5.97 X 10*3/uL (1.80-7.70); Neutrophils % (A) 83.7 %; Platelet Count 261 X 10*3/uL (140-440); RBC 4.38 X 10*6/uL (4.40-5.60); WBC 7.14 X 10*3/uL (4.50-10.00)
[2024-03-23 16:20] LABS: Appearance,Urine Turbid (Clear); Bilirubin,Urine Small (Negative); Blood,Urine Large (Negative); Color,Urine Red (Yellow); Ketones,Urine Negative (Negative); Nitrite,Urine Positive (Negative); PH, Urine 5.5; Specific Gravity,Urine 1.021 (1.001-1.030)
[2024-03-23 17:17] LABS: Bacteria,Urine None Seen (None Seen); Calcium Oxalate Crystals,Urine Present (None Seen)
== END | disposition home or self-care (01) ==
LOC: LABPAT 09:25
PROVIDERS: ATTEND Urology
DX: Z01.812 Encounter for preprocedural laboratory examination (principal); N40.1 Benign prostatic hyperplasia with lower urinary tract symptoms
CPT/HCPCS: 80048; 81001; 85025; 87086

== ENCOUNTER 2024-03-30 08:24 | Day surgery (SDC) | payer MEDICARE, OTHER ==
--- NOTE | 2024-03-29 20:47 | P.HPIHPCON ---
History of Present Illness H&P Date: 03/29/24 Chief Complaint: ureteral stone This is an 88-year-old male with history of a 7 mm right-sided distal ureteral stone causing intermittent symptoms. Option of right-sided ureteroscopy with holmium laser versus ESWL was discussed with him in detail, risk and benefit of each approach were discussed, he agreed to proceed with a right-sided ureteroscopy with holmium laser, aware the risk which include but not limited to bleeding, infection, injury to the ureter Consent for Procedure: I have explained the operation/procedure to the patient, including the risks, benefits, side effects, alternative therapies (including not receiving the proposed treatment or service), the likelihood of the patient achieving his/her goals, and potential recuperation problems for the procedure/sedation/analgesia, as well as any blood products, if indicated. I also explained to the patient the risks, benefits and side effects of the alternatives, as well as the risks related to not receiving the proposed procedure, care, treatment, or services. Past Medical History Past Medical History: Atrial Fibrillation, Cancer, COPD, GERD/Reflux, Pneumonia, Pulmonary Embolus (PE), Renal Disease Additional Past Medical History / Comment(s): 12/2023 mechanical fall with R humerus fracture, UTIs and current UTI on antibiotic by Dr. Rivas, paroxysmal afib, IBS, kidney stones, basal cell skin cancer, rectal cancer Dx January- last chemo/radiation 04-17-16, HAS OSTOMY History of Any Multi-Drug Resistant Organisms: None Reported Past Surgical History: Bowel Resection, Joint Replacement, Orthopedic Surgery Additional Past Surgical History / Comment(s): fx left tibia/fibula repair with 19 screws and 2 plates, fx lt femur repair with plate and 3 screws, removal of skin cancer, yusuf. cataract surgery. DEV. SEPTUM SX, COLONOSCOPY, RT PARTIAL HIP REPLACEMENT 04/17/19, OSTOMY Past Anesthesia/Blood Transfusion Reactions: No Reported Reaction Smoking Status: Former smoker - Past Family History Mother Family Medical History: No Reported History Additional Family Medical History / Comment(s): alcoholism, at age 54 Father History Unknown: Yes Brother(s) Additional Family Medical History / Comment(s): heart problems-5 stents Medications and Allergies Home Medications Medication Instructions Recorded Confirmed Type Montelukast [Singulair] 10 mg PO HS 12/22/17 03/25/24 History Umeclidinium Brm/Vilanterol Tr 1 puff INHALATION RT-DAILY 12/22/17 03/25/24 History [Anoro Ellipta 62.5-25 Mcg INH] Citalopram Hydrobromide [CeleXA] 20 mg PO QAM 12/20/19 03/25/24 History Albuterol Inhaler [Ventolin Hfa 2 puff INHALATION RT-Q4H PRN 01/02/24 03/25/24 History Inhaler] Amiodarone [Cordarone] 200 mg PO HS 01/02/24 03/25/24 History Omeprazole 20 mg PO QAM 01/02/24 03/25/24 History Acetaminophen Tab [Tylenol] 650 mg PO Q4-6H PRN 03/25/24 03/25/24 History Cholecalciferol (Vitamin D3) 75 mcg PO HS 03/25/24 03/25/24 History [Vitamin D3 (3000 Iu)] Fluticasone Nasal [place] [Flonase 1 - 2 spray NASAL BID 03/25/24 03/25/24 History Nasal [place]] Levocetirizine Dihydrochloride 5 mg PO HS 03/25/24 03/25/24 History [Xyzal] Rivaroxaban [Xarelto] 20 mg PO QAM 03/25/24 03/25/24 History nitrofurantoin macrocrystaL 100 mg PO BID 03/25/24 03/25/24 History Allergies Allergy/AdvReac Type Severity Reaction Status Date / Time No Known Allergies Allergy Verified 03/25/24 14:42 Surgical - Exam - General no distress, moderate pain - Eyes no normal ocular movement, no pale - Respiratory normal expansion, normal respiratory effort - Abdomen Abdomen: soft, non tender, no distended Assessment and Plan Assessment: OR for right sided ureteroscopy with holmium laser, stone basketting and stent
[~2024-03-30 08:24] MED LIST changes: +HYDROmorphone 0.5 MG/0.5 ML SYRINGE IVP PRN; -LACTATED RINGERS 1,000 ML IV SCH; +LIDOCAINE 1% (10MG/ML) FOR IV START INTRADERMA PRN; +MIDAZOLAM 2 MG/2 ML VIAL IV PRN
[2024-03-30] MEDS: DEXAMETHASONE SOD PHOSPHATE 4 MG/ML 1 ML VIAL IV ONE (09:30)
[2024-03-30] MEDS: LACTATED RINGERS 1,000 ML IV SCH (09:30)
[2024-03-30] MEDS: ONDANSETRON 4 MG/2 ML VIAL IVP ONE (09:30)
--- NOTE | 2024-03-30 09:37 | XR ---
EXAMINATION TYPE: XR KUB DATE OF EXAM: 03/30/2024 8:38 AM CLINICAL INDICATION:Male, 88 years old with history of cysto/litho with stone basketing and stent; PH H COMPARISON: None. TECHNIQUE: One radiographic view of the abdomen was obtained. FINDINGS: Large amount stool throughout the colon. There is right hip arthroplasty changes in left hi p fixation changes. The bowel gas pattern is nonspecific without dilated loops of small or large vel l. There is no evidence for organomegaly or pneumoperitoneum. The osseous structures are intact. No abnormal calcifications are present. Fecal material and gas are demonstrated throughout the colon an d rectum. Lower abdominal hernia as seen on prior CT projects over the left lower abdomen. IMPRESSION: 1. Limited evaluation of the kidneys due to overlying feces. Left renal calculi may be present it is hard to differentiated from feces. 2. Nonspecific bowel gas pattern without radiographic evidence for acute process.
[2024-03-30] MEDS ORDERED: PROPOFOL 10 MG/ML 20 ML VIAL IV ONE (10:15)
[2024-03-30] MEDS ORDERED: LIDOCAINE 1% INJ 10MG/ML (20 ML MDV) ONE (10:15)
[2024-03-30 10:18] VITALS: RESP 16
[2024-03-30] MEDS: IOHEXOL 350 MG/ML 100 ML in EMPTY BAG 1 BAG IRRIGATION ONE (10:52)
--- NOTE | 2024-03-30 11:05 | P.OP ---
Date of Procedure: 03/30/24 Preoperative Diagnosis: Right ureteral stone Postoperative Diagnosis: Same Procedure(s) Performed: Cystoscopy, right ureteroscopy, holmium laser lithotripsy, stone basketing Implants: none Anesthesia: [facility] Surgeon: Joni Rivas Estimated Blood Loss (ml): 5 Pathology: other (right ureteral stone) Condition: stable Disposition: PACU Indications for Procedure: This is an 88-year-old male with history of a 7 mm right-sided distal ureteral stone causing intermittent symptoms. Option of right-sided ureteroscopy with holmium laser versus ESWL was discussed with him in detail, risk and benefit of each approach were discussed, he agreed to proceed with a right-sided ureteroscopy with holmium laser, aware the risk which include but not limited to bleeding, infection, injury to the ureter Operative Findings: Distal ureteral stone, narrowing of the ureter at the level of the stone, and a torturous ureter Description of Procedure: Patient brought to the operating room, general anesthesia was induced. He was prepped and draped in sterile fashion and placed in dorsolithotomy position. Cystoscopy fitted with a 21 [place] sheath was inserted per urethra, cystoscopy was performed which showed a heavily trabeculated bladder, there were multiple small bladder stones that were irrigated out, his prostate was enlarged with a high median bar. Attention was then carried to the right ureteral orifice, at this point a semirigid ureteroscope was inserted per urethra and advanced up the right ureteral orifice, the scope was advanced to the distal ureter a stone was encountered at that level, using the holmium laser the stone was fragmented, stone fragments were removed using the stone basket. I advanced the scope past the area of the stone, at that area the ureter was slightly narrowed and quite torturous, at this point contrast was injected through the ureteroscope which showed no additional filling defect along the mid and the proximal ureter or within the collecting system. At this time ureteroscope was removed and delayed images was obtained which showed contrast draining completely out of the kidney. There was no ureteral edema thus a stent was not placed. The bladder was empt ied at the end of the case, all stone fragments were sent for analysis. Patient was awakened from anesthesia and taken to recovery in stable condition
[2024-03-30 11:17] VITALS: TEMP 97.5
--- NOTE | 2024-03-30 11:46 | FL ---
EXAMINATION TYPE: FL urography retrograde Intraoperative/procedural fluoroscopic services were provid ed. Total fluoroscopy time is 15 seconds with a total of 8 submitted images to PACS. Please see the o perative/procedural note for further details. DAP: 2.9806 Gycm2
[2024-03-30 12:10] VITALS: BP 158/71; PULSE 68
== END 2024-03-30 12:39 | disposition home or self-care (01) ==
LOC: OR 08:24
PROVIDERS: ATTEND Urology
DX: N20.1 Calculus of ureter (principal); I48.0 Paroxysmal atrial fibrillation; J44.9 Chronic obstructive pulmonary disease, unspecified; K21.9 Gastro-esophageal reflux disease without esophagitis; K58.9 Irritable bowel syndrome, unspecified; Z85.048 Personal history of other malignant neoplasm of rectum, rectosigmoid junction, and anus; Z85.828 Personal history of other malignant neoplasm of skin; Z86.711 Personal history of pulmonary embolism; Z87.891 Personal history of nicotine dependence; Z79.899 Other long term (current) drug therapy
CPT/HCPCS: 52353; 82365; 74420; 74018; C1758 ×4; C1894; C1769 ×3; J1100; J0690; J2405; J2001; J2704; Q9967

== ENCOUNTER 2024-07-18 21:33 | Emergency (ER) | payer MEDICARE, OTHER ==
[2024-07-18 21:44] VITALS: TEMP 98.9
--- NOTE | 2024-07-18 22:27 | ED ---
Fall HPI <Waylon Cosme - Last Filed: 07/19/24 02:54> - General Source: EMS Mode of arrival: EMS <Kia Mccauley - Last Filed: 07/19/24 11:59> - General Chief Complaint: Fall Stated Complaint: Fall Time Seen by Provider: 07/18/24 21:55 - History of Present Illness Initial Comments: Patient is a pleasant 89-year-old gentleman past medical history of atrial fibrillation on Xarelto, prior PE, COPD presenting today for mechanical trip and fall. Patient was walking through him home when he lost his balance and slipped causing him to fall on his right side onto a doorway and then drawer. He denies hitting his head or neck. He was able to call his daughter through his Apple Watch. Was on the ground for approximately 30 minutes. Did not lose consciousness. Currently endorses right-sided rib pain, right hip pain and right arm pain. Sustained an abrasion/skin tear to the right arm. He denies LOC, headache, numbness, weakness, difficulty in breathing, fevers, cough. He has had 3 weeks of progressively worsening hoarseness. Patient's daughter, at bedside is a speech therapist and states that patient will be going to see ENT for a scope to investigate this further in the near future. (Kia Mccauley) - Related Data Home Medications Medication Instructions Recorded Confirmed Montelukast [Singulair] 10 mg PO HS 12/22/17 03/25/24 Umeclidinium Brm/Vilanterol Tr 1 puff INHALATION RT-DAILY 12/22/17 03/25/24 [Anoro Ellipta 62.5-25 Mcg INH] Citalopram Hydrobromide [CeleXA] 20 mg PO QAM 12/20/19 03/25/24 Albuterol Inhaler [Ventolin Hfa 2 puff INHALATION RT-Q4H PRN 01/02/24 03/25/24 Inhaler] Amiodarone [Cordarone] 200 mg PO HS 01/02/24 03/25/24 Omeprazole 20 mg PO QAM 01/02/24 03/25/24 Acetaminophen Tab [Tylenol] 650 mg PO Q4-6H PRN 03/25/24 03/25/24 Cholecalciferol (Vitamin D3) 75 mcg PO HS 03/25/24 03/25/24 [Vitamin D3 (3000 Iu)] Fluticasone Nasal [place] [Flonase 1 - 2 spray NASAL BID 03/25/24 03/25/24 Nasal [place]] Levocetirizine Dihydrochloride 5 mg PO HS 03/25/24 03/25/24 [Xyzal] Rivaroxaban [Xarelto] 20 mg PO QAM 03/25/24 03/25/24 nitrofurantoin macrocrystaL 100 mg PO BID 03/25/24 03/25/24 Previous Rx's Medication Instructions Recorded Lidocaine 4% Patch 1 patch TOPICAL DAILY PRN 14 Days 07/19/24 #14 patch Allergies Allergy/AdvReac Type Severity Reaction Status Date / Time No Known Allergies Allergy Verified 07/18/24 21:44 Review of Systems ROS Other: All systems not noted in ROS Statement are negative. <Waylon Cosme - Last Filed: 07/19/24 02:54> ROS Other: All systems not noted in ROS Statement are negative. <Kia Mccauley - Last Filed: 07/19/24 11:59> ROS Statement: Those systems with pertinent positive or pertinent negative responses have been documented in the HPI. Past Medical History Past Medical History: Atrial Fibrillation, Cancer, COPD, GERD/Reflux, Pneumonia, Pulmonary Embolus (PE), Renal Disease Additional Past Medical History / Comment(s): 12/2023 mechanical fall with R humerus fracture, UTIs and current UTI on antibiotic by Dr. Rivas, paroxysmal afib, IBS, kidney stones, basal cell skin cancer, rectal cancer Dx January- last chemo/radiation 04-17-16, HAS OSTOMY History of Any Multi-Drug Resistant Organisms: None Reported Past Surgical History: Bowel Resection, Joint Replacement, Orthopedic Surgery Additional Past Surgical History / Comment(s): fx left tibia/fibula repair with 19 screws and 2 plates, fx lt femur repair with plate and 3 screws, removal of skin cancer, yusuf. cataract surgery. DEV. SEPTUM SX, COLONOSCOPY, RT PARTIAL HIP REPLACEMENT 04/17/19, OSTOMY Past Anesthesia/Blood Transfusion Reactions: No Reported Reaction Past Psychological History: Anxiety, Depression Smoking Status: Former smoker - Past Family History Mother Family Medical History: No Reported History Additional Family Medical History / Comment(s): alcoholism, at age 54 Father History Unknown: Yes Brother(s) Additional Family Medical History / Comment(s): heart problems-5 stents <Kia Mccauley - Last Filed: 07/19/24 11:59> General Exam Limitations: no limitations <Kia Mccauley - Last Filed: 07/19/24 11:59> - General Exam Comments Initial Comments: PE: CONSTITUTIONAL: No apparent distress, well appearing SKIN: Warm, dry, no jaundice, hives or petechiae, large skin tear to the right posterior upper arm, no laceration present, no bruising or hematomas present EYES: Pupils are equally round, extraocular movements intact without nystagmus, clear conjunctiva, non-icteric sclera HENT: Normocephalic, atraumatic, moist mucus membranes, oropharynx clear without exudates NECK: , Full range of motion, normal appearance, no midline spinal TTP PULMONARY: Clear to auscultation without wheezes, rhonchi, or rales, normal excursion, no accessory muscle use and no stridor CARDIOVASCULAR: Regular rate, rhythm, normal S1 and S2. No appreciated murmurs, rubs or gallops. Strong radial pulses with intact distal perfusion. No lower extremity edema MUSCULOSKELETAL: Extremities have no gross deformity, no edema, redness, or swelling. No tenderness palpation of the right hip, 5 out of 5 strength in lower extremities, able to flex his right hip without pain. Tenderness palpation of the proximal right upper extremity without deformity or obvious swelling. No tenderness to palpation of the shoulder, elbow or distal right upper extremity NEUROLOGIC:_a/o x 3, GCS 15, normal mentation and speech. Moves all extremities x 4 without motor or sensory deficit PSYCHIATRIC:_normal mood and affect, thought process is clear and linear (Kia Mccauley) Course Vital Signs 07/18/24 07/18/24 07/18/24 21:41 21:44 23:56 Temperature 98.9 F Pulse Rate 66 80 Respiratory 16 18 Rate Blood Pressure 116/60 137/69 O2 Sat by Pulse 88 L 95 100 Oximetry 07/19/24 07/19/24 07/19/24 01:20 02:08 02:55 Temperature Pulse Rate 60 60 Respiratory 18 18 Rate Blood Pressure 135/66 141/66 141/66 O2 Sat by Pulse 98 97 97 Oximetry Medical Decision Making - Lab Data Result diagrams: 07/18/24 22:53 07/18/24 22:53 <Waylon Cosme - Last Filed: 07/19/24 02:54> - Lab Data Result diagrams: 07/18/24 22:53 07/18/24 22:53 <EnglishKia - Last Filed: 07/19/24 11:59> - Medical Decision Making Patient signed out to me pending results of ambulation trial. Briefly, patient fell. Has suspected rib contusions. Patient ambulated without difficulty. Would like to go home. I believe this is reasonable. Patient be given an incentive spirometer. Diagnosis is rib contusion. Prescription for lidocaine patches sent. Strict return precautions discussed. I will provide the patient with a prescription for lidocaine patches. I instructed the patient to follow up with their PCP in the next 1-3 days.. I explained that the patient should return to the emergency department if they experience any worsening symptoms. Strict return precautions were discussed with the patient. The patient expressed understanding of these instructions. I answered all questions that the patient had. The patient was discharged home in good condition with their prescriptions and follow up information. Diagnosis/symptom? @ -Fall, rib contusion Acute, or Chronic, or Acute on Chronic? @ -Acute Uncomplicated (without systemic symptoms) or Complicated (systemic symptoms)? @ -Uncomplicated Side effects of treatment? @ -None Exacerbation, Progression, or Severe Exacerbation] @ -No Poses a threat to life or bodily function? @ -Unlikely (Waylon Cosme) Was pt. sent in by a medical professional or institution (TAYLER Lamb, APPLIANCE TECHNICIAN, urgent care, hospital, or correction...) When possible be specific @ -No Did you speak to anyone other than the patient for history (EMS, parent, family, police, friend...)? What history was obtained from this source @ -Spoke with patient's daughter at bedside Did you review nursing and triage notes (agree or disagree)? Why? @ -I reviewed and agree with nursing and triage notes Were old charts reviewed (outside hosp., previous admission, EMS record, old EKG, old radiological studies, urgent care reports/EKG's, correction records)? Report findings @ -No old charts were reviewed Differential Diagnosis (chest pain, altered mental status, abdominal pain women, abdominal pain men, vaginal bleeding, weakness, fever, dyspnea, syncope, headache, dizziness, GI bleed, back pain, seizure, CVA, palpatations, mental health, musculoskeletal)? @ -Differential diagnosis remains broad however top considerations include fracture, contusion, dislocation, this is not meant to be all-inclusive list EKG interpreted by me (3pts min.). @Sinus rhythm, right bundle branch block, 65 bpm, ND interval 158 ms, QRS duration 166 ms, QT/QTc 486/497 ms, left axis deviation, no ST elevations; compared to EKG performed on 01/02/2024, patient had prolonged QT interval at that time as well, similar left axis deviation, no significant changes on [facility] EKG from prior X-rays interpreted by me (1pt min.).; @ -I see no evidence of fracture or dislocation on x-ray ribs, hip, femur, humerus CT interpreted by me (1pt min.). @ -CT neck reviewed, I see no nodules, masses or obvious obstructive lesions U/S interpreted by me (1pt. min.). @ -None done What testing was considered but not performed or refused? (CT, X-rays, U/S, labs)? Why? @ -None What meds were considered but not given or refused? Why? @ -Considered administering fentanyl for pain control however patient's daughter at bedside advised patient to forego fentanyl in order to prevent confusion Did you discuss the management of the patient with other professionals (professionals i.e. , PA, APPLIANCE TECHNICIAN, lab, RT, psych nurse, psychiatric social worker, family service worker, teacher, neighborhood conservation officer, correctional casework specialist)? Give summary @ -No Was smoking cessation discussed for >3mins.? @ -No Was critical care preformed (if so, how long)? @ -No Were there social determinants of health that impacted care today? How? (H omelessness, low income, unemployed, alcoholism, drug addiction, transportation, low edu. Level, literacy, decrease access to med. care, residential, rehab)? @ -No Was there de-escalation of care discussed even if they declined (Discuss DNR or withdrawal of care, Hospice)? @ -No What co-morbidities impacted this encounter? (DM, HTN, Smoking, COPD, CAD, Cancer, CVA, ARF, Chemo, Hep., AIDS, mental health diagnosis, sleep apnea, morbid obesity)? @ -COPD Was patient admitted / discharged? Hospital course, mention meds given and route, prescriptions, significant lab abnormalities, going to OR and other p ertinent info. @ -Hospital course Patient is a pleasant 89-year-old gentleman presenting status post mechanical fall where he hit his right side against a door jam and a drawer. No head or neck trauma. Patient alert and oriented x 4, calm and conversant. Skin tear to the lateral posterior right proximal right upper extremity. Tenderness palpation of the proximal right upper extremity, no tenderness palpation of the shoulder, elbow or remainder of the extremity, no tenderness to palpation of the right hip or deformity of the lower extremities, no midline spinal tenderness to palpation. Appears patient lost his balance and fell, however patient has noted intermittent dysphagia of liquids and worsening voice hoarseness, CT soft tissue neck ordered to evaluate for soft tissue masses, with right chest pain, suspect MSK, however will obtain EKG, troponin to ensure no signs of blunt cardiac injury. Basic labs to ensure no electrolyte issues as a result of liquid dysphagia. Patient daughter agreeable plan of care. Labs and imaging reviewed. Grossly within normal limits. Abnormal values not concerning for acute pathology related to presenting complaint. Assessment discussed with patient and daughter plan for discharge vs admit for PT/OT/ ALFIE placement. Patient considered remaining for this however patient's daughter feels patient would be better served discharged home, as the last time he was admitted for something similar he sat in a wheelchair for 4 weeks and he became weaker. Patient is still endorsing right rib pain, will administer dose of tramadol and perform ambulatory trial. Additionally, magnesium to be administered for prolonged QT. Patient signed out to oncoming physician, Dr. Cosme pending ambulatory trial. (Kia Mccauley) - Lab Data Lab Results 07/18/24 07/18/24 07/18/24 Range/Units 22:53 22:53 22:53 WBC 10.5 (3.8-10.6) k/uL RBC 4.05 L (4.30-5.90) m/uL Hgb 13.2 (13.0-17.5) gm/dL Hct 40.2 (39.0-53.0) % MCV 99.2 (80.0-100.0) fL MCH 32.5 (25.0-35.0) pg MCHC 32.8 (31.0-37.0) g/dL RDW 13.1 (11.5-15.5) % Plt Count 181 (150-450) k/uL MPV 8.4 Neutrophils % 90 % Lymphocytes % 3 % Monocytes % 6 % Eosinophils % 1 % Basophils % 0 % Neutrophils # 9.4 H (1.3-7.7) k/uL Lymphocytes # 0.3 L (1.0-4.8) k/uL Monocytes # 0.6 (0-1.0) k/uL Eosinophils # 0.1 (0-0.7) k/uL Basophils # 0.0 (0-0.2) k/uL PT 13.2 H (10.0-12.5) sec INR 1.3 H (<1.2) APTT 27.8 (22.0-30.0) sec Sodium 132 L (137-145) mmol/L Potassium 4.2 (3.5-5.1) mmol/L Chloride 105 (98-107) mmol/L Carbon Dioxide 27 (22-30) mmol/L Anion Gap 0 mmol/L BUN 19 (9-20) mg/dL Creatinine 1.17 (0.66-1.25) mg/dL Est GFR (CKD-EPI)AfAm 64 (>60 ml/min/1.73 sqM) Est GFR (CKD-EPI)NonAf 55 (>60 ml/min/1.73 sqM) Glucose 127 H (74-99) mg/dL Calcium 9.4 (8.4-10.2) mg/dL Ionized Calcium [place] 5.1 (4.5-5.3) mg/dL Phosphorus 2.5 (2.5-4.5) mg/dL Magnesium 1.9 (1.6-2.3) mg/dL Total Bilirubin 0.8 (0.2-1.3) mg/dL AST 36 (17-59) U/L ALT 42 (4-49) U/L Alkaline Phosphatase 65 (38-126) U/L Troponin I (0.000-0.034) ng/mL Total Protein 5.3 L (6.3-8.2) g/dL Albumin 3.3 L (3.5-5.0) g/dL 07/18/24 Range/Units 22:53 WBC (3.8-10.6) k/uL RBC (4.30-5.90) m/uL Hgb (13.0-17.5) gm/dL Hct (39.0-53.0) % MCV (80.0-100.0) fL MCH (25.0-35.0) pg MCHC (31.0-37.0) g/dL RDW (11.5-15.5) % Plt Count (150-450) k/uL MPV Neutrophils % % Lymphocytes % % Monocytes % % Eosinophils % % Basophils % % Neutrophils # (1.3-7.7) k/uL Lymphocytes # (1.0-4.8) k/uL Monocytes # (0-1.0) k/uL Eosinophils # (0-0.7) k/uL Basophils # (0-0.2) k/uL PT (10.0-12.5) sec INR (<1.2) APTT (22.0-30.0) sec Sodium (137-145) mmol/L Potassium (3.5-5.1) mmol/L Chloride (98-107) mmol/L Carbon Dioxide (22-30) mmol/L Anion Gap mmol/L BUN (9-20) mg/dL Creatinine (0.66-1.25) mg/dL Est GFR (CKD-EPI)AfAm (>60 ml/min/1.73 sqM) Est GFR (CKD-EPI)NonAf (>60 ml/min/1.73 sqM) Glucose (74-99) mg/dL Calcium (8.4-10.2) mg/dL Ionized Calcium [place] (4.5-5.3) mg/dL Phosphorus (2.5-4.5) mg/dL Magnesium (1.6-2.3) mg/dL Total Bilirubin (0.2-1.3) mg/dL AST (17-59) U/L ALT (4-49) U/L Alkaline Phosphatase (38-126) U/L Troponin I <0.012 (0.000-0.034) ng/mL Total Protein (6.3-8.2) g/dL Albumin (3.5-5.0) g/dL Disposition Is patient prescribed a controlled substance at d/c from ED?: No Time of Disposition: 02:30 <Waylon Cosme - Last Filed: 07/19/24 02:54> <Kia Mccauley - Last Filed: 07/19/24 11:59> Clinical Impression: Fall, Rib pain, Rib contusion Disposition: HOME SELF-CARE Condition: Fair Instructions (If sedation given, give patient instructions): How to Use an Incentive Spirometer (ED), Fall Prevention (ED), Rib Contusion (ED) Prescriptions: Lidocaine 4% Patch 1 patch TOPICAL DAILY PRN 14 Days #14 patch PRN Reason: Pain Referrals: Solomon Schmid DO [Primary Care Provider] - 1-2 days
[2024-07-18] MEDS: ACETAMINOPHEN TAB 500 MG TAB PO STA (22:53)
[2024-07-18] MEDS: LIDOCAINE 4% PATCH TOPICAL ONE (22:54)
[2024-07-18] MEDS: SODIUM CHLORIDE 0.9% 500 ML 500 ML IV ONE (22:58)
[2024-07-18 23:09] LABS: Basophils % (A) 0 %; Eosinophils # (A) 0.1 k/uL (0-0.7); Eosinophils % (A) 1 %; HCT 40.2 % (39.0-53.0); HGB 13.2 gm/dL (13.0-17.5); Lymphocytes # (A) 0.3 k/uL (1.0-4.8); Lymphocytes % (A) 3 %; MCH 32.5 pg (25.0-35.0); MCHC 32.8 g/dL (31.0-37.0); MCV 99.2 fL (80.0-100.0); Mean Platelet Volume 8.4; Monocytes # (A) 0.6 k/uL (0-1.0); Monocytes % (A) 6 %; Neutrophils # (A) 9.4 k/uL (1.3-7.7); Neutrophils % (A) 90 %; Platelet Count 181 k/uL (150-450); RBC 4.05 m/uL (4.30-5.90); RDW 13.1 % (11.5-15.5); WBC 10.5 k/uL (3.8-10.6)
[2024-07-18 23:13] LABS: Ionized Calcium 5.1 mg/dL (4.5-5.3)
[2024-07-18 23:17] LABS: INR 1.3 (<1.2); Partial Thromboplastin Time 27.8 sec (22.0-30.0); Prothrombin Time 13.2 sec (10.0-12.5)
--- NOTE | 2024-07-18 23:35 | CT ---
EXAMINATION TYPE: CT soft tissue neck wo con DATE OF EXAM: 07/18/2024 HISTORY: 2-3 wk hoarseness, liquid dysphagia COMPARISON: NONE CT DLP: 165.1 mGycm. Automated Exposure Control for Dose Reduction was Utilized. TECHNIQUE: CT scan of the neck is performed without IV contrast. FINDINGS: Lack of IV contrast is noted lower sensitivity for evaluation for subtle mucosal lesions an d neck adenopathy Airway: Moderate emphysematous change and visualized upper lungs is seen. Airway is patent. Parotid/submandibular glands: No gross abnormality seen. Osseous Structures: [id number] multilevel disc space narrowing C4-C5 through C6-C7 levels . Lev oconvex scoliosis centered in the mid cervical spine. Other: No definitive greater than 1 cm neck adenopathy. IMPRESSION: No significant abnormality is seen to account for patient's symptoms on noncontrast CT. Airway is patent. At least moderate emphysematous change is present
[2024-07-18 23:38] LABS: ALT 42 U/L (4-49); AST 36 U/L (17-59); African American GFR (CKD) 64 (>60 ml/min/1.73 sqM); Albumin 3.3 g/dL (3.5-5.0); Alkaline Phosphatase 65 U/L (38-126); Anion Gap 0 mmol/L; Blood Urea Nitrogen 19 mg/dL (9-20); Calcium 9.4 mg/dL (8.4-10.2); Carbon Dioxide 27 mmol/L (22-30); Chloride 105 mmol/L (98-107); Glucose 127 mg/dL (74-99); Magnesium 1.9 mg/dL (1.6-2.3); Non-African American GFR(CKD) 55 (>60 ml/min/1.73 sqM); Phosphorus 2.5 mg/dL (2.5-4.5); Potassium 4.2 mmol/L (3.5-5.1); Sodium 132 mmol/L (137-145); Total Bilirubin 0.8 mg/dL (0.2-1.3); Total Protein 5.3 g/dL (6.3-8.2)
--- NOTE | 2024-07-18 23:51 | XR ---
EXAMINATION TYPE: XR Hip Complete RT, XR femur RT DATE OF EXAM: 07/18/2024 CLINICAL HISTORY: Fall with right hip pain. TECHNIQUE: AP and frogleg views of the right hip are obtained. 2 views right femur. COMPARISON: None. FINDINGS: Metallic hardware from total right hip arthroplasty is present. Position is satisfactory. N o acute displaced fracture in the right hip or femur. Degenerative changes in the right knee are part ially imaged. Overlying soft tissues are unremarkable IMPRESSION: There is no acute fracture or dislocation in the right hip or femur.
--- NOTE | 2024-07-18 23:52 | XR ---
EXAMINATION TYPE: XR humerus RT DATE OF EXAM: 07/18/2024 CLINICAL HISTORY: Fall with pain TECHNIQUE: Two views of the right humerus are obtained. COMPARISON: Right shoulder x-ray January 02, 2024. FINDINGS: Osseous structures are demineralized. There is no acute fracture or dislocation seen in th e right humerus. Degenerative change in the right shoulder is redemonstrated. Overlying clothing or b lanket material is present. IMPRESSION: No acute fracture or dislocation is evident in the right humerus.
--- NOTE | 2024-07-18 23:57 | XR ---
EXAMINATION TYPE: XR ribs bilat w pa chest xray DATE OF EXAM: 07/18/2024 CLINICAL HISTORY: Fall with hematoma to right-sided ribs. TECHNIQUE: Single frontal view of the chest is obtained. A frontal and oblique images of the bilatera l ribs. COMPARISON: Chest x-ray December 24, 2021 FINDINGS: Reticular interstitial changes more prominent versus prior. Cardiomegaly is present. Osseou s structures are demineralized which is noted to lower radiographic sensitivity. No pneumothorax is e vident. Dedicated images of the bilateral ribs show no acute displaced fracture. Surgical sutures may be pres ent in the epigastric region. IMPRESSION: 1. Cardiomegaly redemonstrated. Suspect more prominent interstitial fibrosis bilaterally. No acute pu lmonary process. 2. Suboptimal evaluation without acute displaced rib fracture clearly seen.
[2024-07-19 00:03] VITALS: RESP 18
[2024-07-19] MEDS: DIPH,PERTUS(ACELL)TETVAC-LF 0.5 ML VIAL IM ONE (00:27)
[2024-07-19] MEDS: traMADol 50 MG TAB PO STA (01:04)
[2024-07-19] MEDS: MAGNESIUM OXIDE 400 MG TAB PO STA (01:06)
[2024-07-19] MEDS: MAGNESIUM SULFATE-D5W PMX 1 GM in DEXTROSE/WATER 1 100ML.BAG IVPB ONE (01:06)
[2024-07-19 02:13] VITALS: BP 141/66; PULSE 60
== END 2024-07-19 02:56 | disposition home or self-care (01) ==
LOC: EC 21:33
CPT/HCPCS: 36415; 70490; 71111; 73502; 80053; 82330; 83735; 84100; 84484; 85025; 85610; 85730; 90471; 90715; 93005; 96365; 99284

== ENCOUNTER → 2024-08-20 | Outpatient (CLI) | payer MEDICARE, OTHER ==
[2024-08-20 08:09] LABS: African American GFR (CKD) 56 (>60 ml/min/1.73 sqM); Blood Urea Nitrogen 15 mg/dL (9-20); Non-African American GFR(CKD) 49 (>60 ml/min/1.73 sqM)
--- NOTE | 2024-08-20 11:54 | FL ---
Exam Date: 08/20/2024 11:26 AM. Modified barium swallow for dysphagia. Consistencies administered: Various consistency of barium. Fluoro time: 55 sec FL time No images were sent to PACS. Please see speech pathology report. DAP: not reported mGym2 Gycm2 -Paralyzed left vocal, difficulty with liquids. 55 sec FL time, no DAP (room 3). thin and pudding [facility], , 08/20/2024 11:52 AM
--- NOTE | 2024-08-22 20:51 | CT ---
EXAMINATION TYPE: CT chest w con DATE OF EXAM: 08/20/2024 COMPARISON: None HISTORY: paralysis of vocal cords left side, looking for any compression in chest causing the paralys is CT DLP: 343 mGycm, Automated exposure control for dose reduction was used. CONTRAST: Performed injected with 100 mL of Isovue 300. TECHNIQUE: Axial images were obtained at 5 mm thick sections. Reconstructed images are reviewed on [employer] computer in the coronal plane. FINDINGS: Portion of the thyroid visualized is normal. No suspicious lung nodules or focal infiltrates are present. Advanced emphysematous changes are prese nt. No enlarged mediastinal or hilar adenopathy is evident. The ascending aorta diameter at the level o f the main pulmonary artery is 3.4 cm. The main pulmonary artery diameter at the bifurcation is 2.[address] sections are obtained through the upper abdomen. There is a hepatic cyst in the left media l liver measuring 2.5 cm. Nonobstructing renal stones mid left kidney measuring 0.6 cm. IMPRESSION: 1. No suspicious mediastinal mass is evident. 2. Nonobstructing left renal stone [facility], Workstation: [email or web address], 08/22/2024 8:49 PM
== END | disposition home or self-care (01) ==
LOC: RADCTMAIN 07:07
PROVIDERS: ATTEND Otolaryngology
DX: J38.01 Paralysis of vocal cords and larynx, unilateral (principal); N20.0 Calculus of kidney
CPT/HCPCS: 92611; 82565; 84520; 74230; 71260; 36415; Q9967

== ENCOUNTER → 2024-10-22 | Outpatient (CLI) | payer MEDICARE, OTHER | END | disposition home or self-care (01) | LOC: LABWHC1 09:21 | PROVIDERS: ATTEND Internal Medicine Cardiovascular Disease | DX: I48.3 Typical atrial flutter (principal) | CPT/HCPCS: 36415; 84443 ==

== ENCOUNTER → 2025-02-28 | Outpatient (CLI) | payer MEDICARE, OTHER | END | disposition home or self-care (01) | LOC: LABWHC1 09:39 | PROVIDERS: ATTEND Internal Medicine Cardiovascular Disease | DX: I48.3 Typical atrial flutter (principal) | CPT/HCPCS: 36415; 84443; 84450; 84460 ==